=== PATIENT | female | born 1950 | race Caucasian/White ===

== ENCOUNTER → 2018-06-03 12:21 | Outpatient (CLI) | payer MEDICARE, SELFPAY ==
--- NOTE | 2018-06-03 | DI.MG.S_ITS ---
BILATERAL DIGITAL SCREENING MAMMOGRAM 3D/2D WITH CAD: 06/03/2018 CLINICAL: Routine screening. Comparison is made to exams dated: 04/26/2017 mammogram, 04/18/2016 mammogram, and 08/03/2014 mammogram - [facility]. The tissue of both breasts is heterogeneously dense. This may lower the sensitivity of mammography. Current study was also evaluated with a Computer Aided Detection (CAD) system. No significant masses, calcifications, or other findings are seen in either breast. There has been no significant interval change. IMPRESSION: NEGATIVE There is no mammographic evidence of malignancy. A 1 year screening mammogram is recommended.(06/04/2019) This exam was interpreted at Station ID: [id number]. NOTE: For mammograms, a report in lay terms will be sent to the patient. Approximately 15% of breast malignancies will not be visualized mammographically. In the management of a palpable breast mass, a negative mammogram must not discourage biopsy of a clinically suspicious lesion. Electronically Signed By: Carmelo sharif/tomas:06/04/2018 12:23:21 letter sent: Normal Exam ACR BI-RADS Category 1: Negative 3341F
== END ==
PROVIDERS: PCP Physician Assistant; Visit Provider Physician Assistant
DX: Z12.31 Encounter for screening mammogram for malignant neoplasm of breast (principal)
CPT/HCPCS: 77063; 77067

== ENCOUNTER → 2018-08-05 11:22 | Outpatient (CLI) | payer MEDICARE, SELFPAY ==
[2018-08-05 12:42] LABS: Alanine Aminotransferase 29 IU/L (9-52); Albumin 4.5 g/dL (3.5-5.0); Albumin Globulin Ratio 1.5 (1.0-2.8); Alkaline Phosphatase 98 U/L (38-126); Aspartate Aminotransferase 24 IU/L (14-36); Bilirubin Total 0.3 mg/dL (0.2-1.3); Blood Urea Nitrogen 14 mg/dL (7-17); Calcium 9.3 mg/dL (8.4-10.2); Carbon Dioxide 22 mmol/L (22-32); Chloride 106 mmol/L (98-107); Cholesterol 260 mg/dL (140-199); Estimated Glomerular Filt Rate > 60.0 mL/min (>60); Globulin 3.1 g/dL (1.7-4.1); Glucose 92 mg/dL (80-110); HDL Cholesterol 66 mg/dL (40-60); HEMOLYSIS < 15 (0-50); LDL Cholesterol Calculated 169 mg/dL (<100); Potassium 5.2 mmol/L (3.4-5.1); Sodium 142 mmol/L (137-145); Total Protein 7.6 g/dL (6.3-8.2); Triglycerides 127 mg/dL (35-150)
[2018-08-05 13:08] LABS: Erythrocyte Sedimentation Rate 28 MM/HR (0-20)
[2018-08-05 13:09] LABS: Thyroid Stimulating Hormone 2.41 uIU/mL (0.47-4.68)
== END ==
PROVIDERS: PCP Physician Assistant; Visit Provider Physician Assistant
DX: E03.9 Hypothyroidism, unspecified (principal); E78.2 Mixed hyperlipidemia; K58.9 Irritable bowel syndrome, unspecified; K76.0 Fatty (change of) liver, not elsewhere classified; R70.0 Elevated erythrocyte sedimentation rate
CPT/HCPCS: 80053; 80061; 84443; 85651

== ENCOUNTER → 2019-04-21 10:10 | Outpatient (CLI) | payer MEDICARE, SELFPAY ==
--- NOTE | 2019-04-21 10:19 | DI.CT.S_ITS ---
PROCEDURE: CT LE LT W CON INDICATIONS: Fall x 2; foot pain left lateral 5th metatarsal TECHNIQUE: Noncontrast 1-1.5 mm axial sections acquired from above the tibiotalar joint to the bottom of the calcaneus, with coronal and sagittal reformats. COMPARISON: None. FINDINGS: Image quality: Excellent. Bones: No fracture found. Mild degenerative osteoarthritis is present. No traumatic subluxation is seen. Soft tissues: No posttraumatic hematoma identified. No ligamentous injury seen. IMPRESSION: Pain is reported most prominent at the lateral fifth metatarsal region, and through this area at no osseous injury or soft tissue injury is found. There is a mild degree of degenerative osteoarthritis over the foot, without evidence of erosive arthritis. Dictated by: Nate Mart M.D. on 04/21/2019 at 12:35 Approved by: Nate Mart M.D. on 04/21/2019 at 12:36
== END ==
PROVIDERS: PCP Physician Assistant; Visit Provider Physician Assistant
DX: M79.672 Pain in left foot (principal); W19.XXXA Unspecified fall, initial encounter
CPT/HCPCS: 73700

== ENCOUNTER 2019-06-03 08:41 | Day surgery (SDC) | payer MEDICARE, SELFPAY ==
--- NOTE | 2019-06-03 | PATH_ITS ---
[facility] Accession Number: [id number] . 01 Material submitted: . PART A: gastrointestinal site - GASTRIC BIOPSIES PART B: colon - ASCENDING COLON POLYP PART C: colon - FLAT LESION AT 50 CM . 01 Clinical history: . SCREENING COLONOSCOPY . 02 Diagnosis: A. Stomach, Biopsies: Gastric antral and body mucosa with mild chronic inflammation. Negative for Helicobacter organisms by immunohistochemistry. Negative for intestinal metaplasia, dysplasia or malignancy. . B. Ascending Colon, Polyp: Tubular adenoma. . C. Colon at 50 cm, Flat Lesion: Serrated lesion, favor sessile serrated adenoma. MRV 06/05/2019 1404 Local . 02 Electronically signed: . Max Antoine MD, PhD, Pathologist NPI- [id number] . 01 Gross description: . Part A: GASTRIC BIOPSIES: Received in formalin are 4 fragment(s) of prieto, soft tissue measuring 0.1 x 0.1 x 0.1 cm to 0.3 x 0.2 x 0.2 cm which is entirely submitted and submitted entirely in 1 cassette(s) Part B: ASCENDING COLON POLYP: Received in formalin are 2 fragment(s) of prieto, soft tissue measuring 0.1 x 0.1 x 0.1 cm to 0.2 x 0.2 x 0.2 cm which is entirely submitted and submitted entirely in 1 cassette(s) Part C: FLAT LESION AT 50 CM: Received in formalin are 3 fragment(s) of prieto, soft tissue measuring 0.1 x 0.1 x 0.1 cm to 0.3 x 0.2 x 0.2 cm which is entirely submitted and submitted entirely in 1 cassette(s) /[facility] 06/03/2019 1929 Local . 02 Microscopic: . Part A: An immunohistochemical stain is performed to evaluate for Helicobacter organisms, and is negative. A control stain shows appropriate reactivity. . * This test was developed and its performance characteristics determined by [facility]. It has not been cleared or approved by the U.S. Food and Drug Administration. The FDA has determined that such clearance or approval is not necessary. This test is used for clinical purposes. It should not be regarded as investigational or for research. . 02 Pathologist provided ICD-10: K29.70, D12.2, D12.6 . 02 CPT . 100250, 477754, 152630, W33395 Performed at: 01 [facility] [address] [facility], [place], [place] [id number] MD Jose Rowland MD Phone: [phone] Performed at: 02 [facility] [address] [place] [id number] MD Suzanne Camilo MD Phone: [phone]
[2019-06-03 09:01] VITALS: BMI 31.6
[2019-06-03 09:12] VITALS: BP 147/78; PULSE 85; RESP 12; TEMP 36.6; O2SAT 96
[2019-06-03] MEDS: SODIUM CHLORIDE 0.9% 1,000 ML 200 ML IV (09:14)
--- NOTE | 2019-06-03 09:59 | PM.HP.1 ---
History of Present Illness History of Present Illness Date Patient Seen: 06/03/19 Time Patient Seen: 10:00 Chief complaint: 63900 SCREENING COLONOSCOPY Narrative: Patient is woman with chronic mid and left abdominal pain that is persistent for the last 4 years. She apparently has had an evaluation and may have had gastritis or ulcers in the past. She is here for screening colonoscopy and has requested an EGD as well. She had a sister with colon cancer. Her last colonoscopy was in 2012. She had a small polyp removed at that time. Patient History Surgical History Status post hysterectomy Family History (Updated 01/12/16 @ 00:00 by Conversion Provider) Father Heart disease Social History household members: spouse Smoking Status: Former smoker (quit 19 years ago) Tobacco: How many years used: 30 second hand exposure: Yes (rarely) alcohol intake: current (Usually vodka, 3 or 4 drinks a month) substance use type: marijuana (edibles/THC with CBD) Family & Social History Family History Father Heart disease Social History: household members spouse Tobacco & Substance use: Smoking Status Former smoker alcohol intake current Meds Home Medications and Allergies Home Medications Medication Instructions Recorded Confirmed Type estradiol 0.075 mg/24 hr 0.075 mg TOPICAL SEE INSTRUCTIONS 07/29/18 06/03/19 Rx semiweekly transdermal patch #24 patch cyclobenzaprine 10 mg tablet 10 mg PO BEDTIME PRN #30 tab 10/18/18 06/03/19 Rx alprazolam 1 mg tablet 1 mg PO HSP PRN #30 tab 03/04/19 06/03/19 Rx amitriptyline 10 mg tablet See Rx Instructions PO BEDTIME PRN 04/15/19 06/03/19 Rx #180 tab oxybutynin chloride 5 mg See Rx Instructions PO DAILY #30 04/15/19 06/03/19 Rx tablet,extended release 24 hr tab Allergies Allergy/AdvReac Type Severity Reaction Status Date / Time doxycycline [DOXYCYCLINE] AdvReac Severe Pressure Verified 06/03/19 08:59 behind eyes/blurred vision/headaches citalopram [CITALOPRAM] AdvReac Intermediate FORGETFULNESS Verified 06/03/19 08:59 AND BRAIN FOG Review of Systems Review of Systems ROS Unobtainable: All systems reviewed & are unremarkable except as noted in HPI and below Exam Vital Signs (past 8 hours): - 06/03/19 09:12 Temperature 97.9 F Pulse Rate 85 Respiratory Rate 12 Blood Pressure 147/78 H Pulse Oximetry 96 Oxygen Delivery Method Room Air Narrative Exam Narrative: Pleasant cooperative patient no apparent distress. Lungs are clear to auscultation. No rales or rhonchi. Heart regular rate and rhythm no murmur gallop. Abdomen is soft nontender without mass. No obvious hernias. Patient is alert and oriented x3. Assessment & Plan Assessment & Plan narrative: The patient for a screening colonoscopy and I have added an upper GI endoscopy due to her chronic symptoms and prior history. I have discussed the procedures with them. Risks of bleeding, perforation which would necessitate major operation, failure to find remove all lesions, the potential tattoo were all discussed. All questions were answered. They wished to proceed.
--- NOTE | 2019-06-03 10:02 | PM.PREOP ---
Pre-operative Note Interval Note History & Physical reviewed/Exam performed by Physician: Yes Changes to H&P: No ASA Class (for procedural sedation): II
[2019-06-03] MEDS: LIDOCAINE 4% SOLN 50 ML 20 ML TOP (10:07)
--- NOTE | 2019-06-03 10:51 | PM.OP.ENDO ---
Operative Date/Time/Diagnoses Date of procedure: 06/03/19 Time of procedure: 10:52 Pre-op diagnosis: Abdominal pain. Screening for colon cancer. Last colonoscopy 6 years ago. Personal history of polyps. Sister with colon cancer. Post-op diagnosis: same (Diverticulosis. One small polyp in 1 irregularity.) Procedure & Clinicians Study performed: EGD with cold biopsy. Colonoscopy with cold biopsy. Same procedure as scheduled: Yes Indications: Chronic abdominal pain. screening for colon cancer Surgeon: Narciso Albarran Procedure Notes SCOAP/Timeout: Perform Procedure in detail: The patient had topical anesthetic applied to oropharynx. She was placed in left lateral decubitus position and underwent IV sedation directed by the surgeon consisting of fentanyl and Versed. A bite block was inserted and the scope was advanced through it into the esophagus. The esophagus was unremarkable. GE junction was noted at 41 cm from the incisors. The stomach insufflated well. There were no lesions seen in the body, antrum or at the incisura. The pyloric channel was patent. The duodenum was unremarkable to the 4th part. The scope was brought back into the stomach and retroflexed. The proximal stomach normal in appearance. Because of the patient's history I took random biopsies of the stomach. The scope was straightened and brought out through the esophagus again. No lesions were seen. The scope was removed and the patient tolerated the procedure well. The patient was shunt was repositioned. The patient was given additional sedation directed by the surgeon consisting of fentanyl and Versed. Digital exam was remarkable for a mild stricture. The scope was inserted and advanced through the rectum into the sigmoid, descending, transverse, and ascending colon. Diverticulosis was noted. This was principally in the sigmoid.. The cecum was reached identified by the ileocecal valve and the appendiceal opening. The scope was gradually brought out. One small Polyp was found at the ascending colon. It was removed with biopsy forceps. There was also a slight irregularity that might have been due to trauma going around a turn at 50 cm. I biopsied the area.. The scope ultimately was attempted to be retroflexed in the rectum. I was unsuccessful. Therefore the scope was slowly brought through the anal canal. Patient appeared to have some hemorrhoids near the anal verge.. The scope was removed and the patient tolerated the procedure well. Prep was very good Scope withdrawal time: 9 minutes(12 total) Sedation minutes: 41 Findings: diverticulosis (Sigmoid) and polyp (Small polyp) Specimen(s): other (Polyps) Complications: none Post-procedure Recommendations: Other recommendation (Consider taking Metamucil daily) Follow up: as needed Disposition: PACU
[2019-06-03] MEDS: MIDAZOLAM 5 MG/5 ML VIAL IV (10:53)
[2019-06-03] MEDS: fentaNYL 250 MCG/5 ML INJ IV (10:53)
[2019-06-03 10:54] VITALS: BP 147/75; PULSE 84; RESP 17; TEMP 36.2; O2SAT 98
[2019-06-03 10:59] VITALS: BP 150/73; PULSE 85; RESP 17; O2SAT 97
--- NOTE | 2019-06-03 11:00 | SUR.PHASEI ---
Pt. arousible with verbal stimulation, laying on left side, dozing; noted heart rate increasing to 130 and flucuating between one teens and and one twenty's, to 130. Pt. states that she (the pt.) feels her heart racing for no reason, sometimes keeping her (the pt) from sleeping at night. Pt. states aunt and sister has been dx'd with atrial fibrilation. Just had pt. sit up in bed to take a drink and noted heart rate dropped back down to the 80's, however not staying that way; as this author is documenting noted the heartrate to increase to the upper one teens. pt. stated that it primarlily races when laying flat. This author is recommending the pt. follow up her (the pt) PCP then onto a chemical applicator. Pt. has seen a chemical applicator for a low saturation level after a surgical procedure. This author has strongly recommended that the pt. see her chemical applicator OFELIA.
[2019-06-03 11:05] VITALS: BP 159/76; PULSE 115; RESP 17; O2SAT 98
[2019-06-03 11:20] VITALS: BP 143/77; PULSE 105; RESP 17; O2SAT 98
[2019-06-03 11:30] VITALS: BP 154/74; PULSE 94; RESP 17; TEMP 36.2; O2SAT 98
--- NOTE | 2019-06-03 11:38 | SUR.PHASEII ---
This author went over d/c instructions with spouse and informed the spouse of recent heart rate; pt. spouse stated that he was aware of her (the pt) experiencing increased heart rate/palpitations prior to today. This author strongly encouraged the spouse to call and make an appoint to see box spinner hopefully by end of this week. Both pt. and spouse acknowledged full understanding and importance of following up with cardio dr. Pt. heart rate at d/c time in the 90's
== END 2019-06-03 11:41 | disposition home or self-care (01) ==
PROVIDERS: Family Provider Physician Assistant; PCP Physician Assistant; Visit Provider Specialist
PROC: 0DJD8ZZ Inspection of Lower Intestinal Tract, Via Natural or Artificial Opening Endoscopic (ICD-10-PCS; CPT 45378; principal; 2019-06-03 09:45)
PROC: 0DJ08ZZ Inspection of Upper Intestinal Tract, Via Natural or Artificial Opening Endoscopic (ICD-10-PCS; CPT 43235; 2019-06-03 09:45)
DX: Z86.010 Personal history of colon polyps (principal); Z80.0 Family history of malignant neoplasm of digestive organs; Z87.19 Personal history of other diseases of the digestive system; K57.30 Diverticulosis of large intestine without perforation or abscess without bleeding
CPT/HCPCS: 45380; 43239; 99152; 99153; J2250; J3010

== ENCOUNTER → 2019-06-06 09:27 | Outpatient (CLI) | payer MEDICARE, SELFPAY ==
[2019-06-06 10:56] LABS: Hematocrit 41.2 % (36-46); Hemoglobin 14.1 g/dL (12.0-16.0); Mean Corpuscular HGB Conc 34.3 % (30-36); Mean Corpuscular Hemoglobin 31.1 PG (26-34); Mean Corpuscular Volume 90.7 fL (80-100); Platelet Count 228 X10^3/uL (150-400); Red Blood Cell Count 4.54 X10^6/uL (4.0-5.2); White Blood Cell Count 7.5 X10^3/uL (4.5-11.0)
[2019-06-06 11:51] LABS: Alanine Aminotransferase 17 IU/L (9-52); Albumin 4.3 g/dL (3.5-5.0); Albumin Globulin Ratio 1.3 (1.0-2.8); Alkaline Phosphatase 85 U/L (38-126); Aspartate Aminotransferase 24 IU/L (14-36); BUN Creatinine Ratio 18.6 (6-22); Bilirubin Total 0.4 mg/dL (0.2-1.3); Blood Urea Nitrogen 13 mg/dL (7-17); Calcium 9.3 mg/dL (8.4-10.2); Carbon Dioxide 26 mmol/L (22-32); Chloride 104 mmol/L (98-107); Estimated Glomerular Filt Rate > 60.0 mL/min (>60); Globulin 3.4 g/dL (1.7-4.1); Glucose 94 mg/dL (80-110); HEMOLYSIS < 15 (0-50); Potassium 4.6 mmol/L (3.4-5.1); Sodium 138 mmol/L (137-145); Total Protein 7.7 g/dL (6.3-8.2)
[2019-06-06 12:41] LABS: TSH w/ Reflex to FT4 1.79 uIU/mL (0.47-4.68)
== END ==
PROVIDERS: PCP Physician Assistant; Visit Provider Nurse Practitioner Family
DX: I49.9 Cardiac arrhythmia, unspecified (principal); R00.2 Palpitations
CPT/HCPCS: 36415; 80053; 84443; 85027

== ENCOUNTER → 2019-06-07 10:47 | Outpatient (CLI) | payer MEDICARE, SELFPAY ==
--- NOTE | 2019-06-07 | DI.MG.S_ITS ---
BILATERAL DIGITAL SCREENING MAMMOGRAM 3D/2D WITH CAD: 06/07/2019 CLINICAL: Routine screening. Comparison is made to exams dated: 06/03/2018 mammogram, 04/26/2017 mammogram, and 04/18/2016 mammogram - [facility]. The tissue of both breasts is heterogeneously dense. This may lower the sensitivity of mammography. Current study was also evaluated with a Computer Aided Detection (CAD) system. No significant masses, calcifications, or other findings are seen in either breast. There has been no significant interval change. IMPRESSION: NEGATIVE There is no mammographic evidence of malignancy. A 1 year screening mammogram is recommended. This exam was interpreted at Station ID: [id number]. NOTE: For mammograms, a report in lay terms will be sent to the patient. Approximately 15% of breast malignancies will not be visualized mammographically. In the management of a palpable breast mass, a negative mammogram must not discourage biopsy of a clinically suspicious lesion. Electronically Signed By: Jose hollis/tomas:06/10/2019 16:27:09 letter sent: Normal Exam ACR BI-RADS Category 1: Negative 3341F
== END ==
PROVIDERS: PCP Physician Assistant; Visit Provider Physician Assistant
DX: Z12.31 Encounter for screening mammogram for malignant neoplasm of breast (principal)
CPT/HCPCS: 77063; 77067

== ENCOUNTER → 2019-06-19 10:47 | Outpatient (CLI) | payer MEDICARE, SELFPAY ==
--- NOTE | 2019-07-08 15:37 | PM.CARDMON.1 ---
Gis Coordinator Report Referral & Results Date Patient Seen: 06/19/19 Requesting provider: Radha Trejo Indication: Palpitations Duration of monitoring (days): 14 Diary information: There were 19 patient triggered events and 9 patient diary entries All of these events were associated with sinus rhythm, PACs, and SVT/atrial tachycardia Data: Minimum sinus heart rate was 53 beats per minute at 08:00 on 06/28/2019 Maximum sinus heart rate was 151 beats per minute at 13:30 on 06/30/2019 Maximum overall heart rate was 200 beats per minute at 17:37 on 06/20/2019 during a 4 beat run of SVT Approximately 4.8% of identified beats were ectopic supraventricular in origin Less than 1% of identified beats were ventricular ectopic in origin Patient had 9400+ episodes of a supraventricular tachycardia or atrial tachycardia with the fastest being the 4 beat run as above, the longest lasting 50.5 seconds at a rate of 120 beats per minute, which suggest atrial tachycardia rather than true SVT Impression: Patient with significant burden of supraventricular ectopic activity as above, potentially source of patient's symptoms of palpitations Clinical correlation suggested
== END ==
PROVIDERS: PCP Physician Assistant; Visit Provider Nurse Practitioner Family
DX: R00.2 Palpitations (principal); I49.9 Cardiac arrhythmia, unspecified
CPT/HCPCS: 0296T; 0298T

== ENCOUNTER → 2020-02-27 10:37 | Outpatient (CLI) | payer MEDICARE, SELFPAY ==
[2020-02-27 12:25] LABS: Alanine Aminotransferase 17 IU/L (<35); Albumin Globulin Ratio 1.3 (1.0-2.8); Alkaline Phosphatase 85 U/L (38-126); Aspartate Aminotransferase 21 IU/L (14-36); BUN Creatinine Ratio 22.5 (6-22); Bilirubin Total 0.5 mg/dL (0.2-1.3); Blood Urea Nitrogen 16 mg/dL (7-17); Calcium 9.1 mg/dL (8.4-10.2); Carbon Dioxide 25 mmol/L (22-32); Chloride 103 mmol/L (98-107); Cholesterol 245 mg/dL (140-199); Estimated Glomerular Filt Rate > 60.0 mL/min (>60); Glucose 88 mg/dL (80-110); HDL Cholesterol 46 mg/dL (40-60); HEMOLYSIS < 15 (0-50); LDL Cholesterol Calculated 153 mg/dL (<100); Potassium 4.4 mmol/L (3.4-5.1); Sodium 136 mmol/L (137-145); Triglycerides 229 mg/dL (35-150)
[2020-02-27 12:38] LABS: Free T3, Triiodothyronine Free 2.77 pg/mL (2.77-5.27); Free T4, Direct Thyroxine 1.09 ng/dL (0.78-2.19)
[2020-02-27 12:52] LABS: Thyroid Stimulating Hormone 1.98 uIU/mL (0.47-4.68)
[2020-02-27 13:14] LABS: Hep C Virus Ab w/Reflex Quant NEGATIVE s/c (NEGATIVE)
== END ==
PROVIDERS: PCP Nurse Practitioner; Referring Provider Nurse Practitioner; Visit Provider Nurse Practitioner
DX: Z11.59 Encounter for screening for other viral diseases (principal); Z91.89 Other specified personal risk factors, not elsewhere classified; E78.2 Mixed hyperlipidemia; F41.8 Other specified anxiety disorders; I49.9 Cardiac arrhythmia, unspecified; R00.2 Palpitations
CPT/HCPCS: 36415; 80053; 80061; 84439; 84443; 84481; 86803

== ENCOUNTER → 2020-07-07 14:39 | Outpatient (CLI) | payer MEDICARE, SELFPAY ==
[2020-07-07 16:06] LABS: BUN Creatinine Ratio 25.6 (6-22); Blood Urea Nitrogen 21 mg/dL (7-17); Calcium 9.5 mg/dL (8.4-10.2); Carbon Dioxide 28 mmol/L (22-32); Chloride 104 mmol/L (98-107); Estimated Glomerular Filt Rate > 60.0 mL/min (>60); Glucose 94 mg/dL (80-110); HEMOLYSIS < 15 (0-50); Potassium 4.7 mmol/L (3.4-5.1); Sodium 136 mmol/L (137-145)
== END ==
PROVIDERS: PCP Nurse Practitioner; Referring Provider Nurse Practitioner Acute Care; Visit Provider Nurse Practitioner
DX: I50.32 Chronic diastolic (congestive) heart failure (principal); M81.0 Age-related osteoporosis without current pathological fracture
CPT/HCPCS: 36415; 77080; 80048

== ENCOUNTER → 2020-08-10 16:03 | Outpatient (CLI) | payer MEDICARE, SELFPAY ==
--- NOTE | 2020-08-10 16:05 | DI.MG.S_ITS ---
BILATERAL DIGITAL SCREENING MAMMOGRAM 3D/2D WITH CAD: 08/10/2020 CLINICAL: Routine screening. Comparison is made to exams dated: 06/07/2019 mammogram, 06/03/2018 mammogram, and 04/26/2017 mammogram - [facility]. The tissue of both breasts is heterogeneously dense. This may lower the sensitivity of mammography. Current study was also evaluated with a Computer Aided Detection (CAD) system. No significant masses, calcifications, or other findings are seen in either breast. There has been no significant interval change. IMPRESSION: NEGATIVE There is no mammographic evidence of malignancy. A 1 year screening mammogram is recommended. This exam was interpreted at Station ID: [id number]. NOTE: For mammograms, a report in lay terms will be sent to the patient. Approximately 15% of breast malignancies will not be visualized mammographically. In the management of a palpable breast mass, a negative mammogram must not discourage biopsy of a clinically suspicious lesion. Electronically Signed By: Jose hollis/tomas:08/10/2020 16:28:31 letter sent: Normal Exam ACR BI-RADS Category 1: Negative 3341F
== END ==
PROVIDERS: PCP Nurse Practitioner; Referring Provider Nurse Practitioner; Visit Provider Nurse Practitioner
DX: Z12.31 Encounter for screening mammogram for malignant neoplasm of breast (principal)
CPT/HCPCS: 77063; 77067

== ENCOUNTER 2020-09-06 11:15 | Outpatient (RCR) | payer MEDICARE, SELFPAY ==
--- NOTE | 2020-08-11 16:00 | PT.OPPOC ---
Physical, Occupational & Speech Therapy At [facility] Current Diagnoses Stress incontinence (female) (male) (08/11/20) Urge incontinence (08/11/20) Cystocele, unspecified (08/11/20) Postmenopausal atrophic vaginitis (08/11/20) Visit Care Team Role Provider Type TAYLOR Lindo Primary Care Provider Advanced [employer] Zone Leader Specialty: Family Practice Address: [address] [place] [address], [id number] Email: [email or web address] Raisa Arcos MD Attending Provider Physician Referring Provider Specialty: IS MANAGER Address: [address] [place] [address], [address] Email: Plan Of Care PT-OP-T Assessment and Plan Start: 08/11/20 08:05 Freq: Status: Active Protocol: Document 08/11/20 14:15 AMB (Rec: 08/13/20 08:11 AMB [email or web address]) Physical Therapy Assessment Rehab Potential Rehabilitation Potential Good Evaluation Complexity Number of Personal Factors/Comorbidities 1-2 Clinical Presentation at Evaluation Evolving Impairments Impairments Functional Activities,Soft Tissue Mobility,Strength Goals Two Impairment prolapse Short Term Goal (STG) Nayeli will be independent an consistent with her HEP for her pelvic floor strengthening . STG Duration 4 weeks Prison Goal (LTG) Nayeli will go for a walk with her pessary without a feeling of pelvic heaviness. LTG Duration 8 weeks One Impairment continence Short Term Goal (STG) Nayeli will reduce her daily leaks to 1x/day. STG Duration 4 weeks Prison Goal (LTG) Nayeli will lift a 10# box from the floor to waist height without leaking. LTG Duration 8 weeks Assessment Summary Assessment Nayeli attends physical therapy with a long history of urgency, now worsened by more recent prolapse and stress incontinence symptoms. She was able to engage her pelvic floor muscles, but did display weakness, so would be a good candidate for pelvic floor strengthening. She will also benefit from education regarding her urgency and frequency. Physical Therapy Plan Frequency and Duration Frequency of Treatment 1x/Week Duration of Treatment 8 weeks Plan of Care Start Date 08/11/20 Plan of Care End Date 10/13/20 Therapeutic Interventions Therapeutic Interventions Manual Therapy,Neuromuscular Re-education,Self-Care/Home Management,Therapeutic Activities,Therapeutic Exercises Modalities Biofeedback,Cold Pack/Ice Massage,Electric Stimulation, Hot Packs Next Visit Focus/Plan Next Note Type Treatment Note Next Visit Plan Establishe HEP starting in supine, can try legs elevated Plan of Care Dates Plan of Care Start Date 08/11/20 Plan of Care End Date 10/13/20 Electronically Signed by: Lisa Wood, PT 08/13/20 [id number] Please Sign and Return: I have reviewed this Plan of Care and certify that the skilled therapy services above are required to meet the patient?s needs. Physician Signature Date Printed Name and Credentials Clinical Instructor Signature Printed Name and Credentials
--- NOTE | 2020-08-11 16:00 | PT.OIE ---
Current Diagnoses Stress incontinence (female) (male) (08/11/20) Urge incontinence (08/11/20) Cystocele, unspecified (08/11/20) Postmenopausal atrophic vaginitis (08/11/20) Past Medical History (Last Updated 07/29/20 @ 13:43 by TAYLOR Lindo) Atrial tachycardia Cystocele Degeneration of intervertebral disc (03/20/11) Fall History of bariatric surgery (03/20/11) Insomnia Insufficiency, adrenal Intermittent palpitations Irregular heart rhythm Left foot pain Low back pain Mitral and aortic incompetence (03/20/11) Mixed incontinence Obesity (BMI 30.0-34.9) Obstructive sleep apnea Paroxysmal supraventricular tachycardia Primary osteoarthritis (03/20/11) Rectocele Right hip pain Sciatica, right side Steatosis of liver Vaginal atrophy Past Surgical History (Last Reviewed 07/29/20 @ 13:24 by TAYLOR Lindo) Status post hysterectomy Visit Care Team Role Provider Type TAYLOR Lindo Primary Care Provider Advanced Front Desk Administrator Specialty: Family Practice Address: [address] [place] [address], [id number] Email: [email or web address] Raisa Arcos MD Attending Provider Physician Referring Provider Specialty: BADGER DISTILLER OPERATOR Address: [address] [place] [address], [id number] Email: Physical Therapy Initial Evaluation PT-OP-A Visit Information Start: 08/11/20 08:05 Freq: Status: Active Protocol: Document 08/11/20 14:15 AMB (Rec: 08/13/20 08:11 AMB [id number]) Out-Patient Physical Therapy Visit Information Visit Information Visit Type Initial Evaluation Visit Start Time 14:15 Visit Stop Time 15:00 Total Visit Minutes 45 Visit Number 1 PT-OP-B Current Condition Start: 08/11/20 08:05 Freq: Status: Active Protocol: Document 08/11/20 14:17 AMB (Rec: 08/11/20 14:41 AMB [id number]) Current Condition History of Current Condition Onset Date sometime May 2020 Current Complaints heaviness, urinary leakage History of Current Condition Prolapse concerns. Urgency since 30s. Vaginal delivery with episiotomy of 9.5 pound baby and then twins. Hysterectomy 1991 for endometriosis, ovaries, cervix . Hormone patch currently. Was fit for a pessary, it's being ordered, hasn't started wearing it yet. Prior Functional Status Baseline Function- ADL's Modified Independent Baseline Function- Mobility Modified Independent Current Functional Impairments (Reported) Functional Limitations- ADL's Long standing urge incontinence and urinary frequency, more recent stress incontinence and cystocele/ rectocele sx Personal Factors Other Personal Factors That May Effect currently getting work up for Therapy/Recovery cardiac issues: CHF, SOB. PT-OP-C Subjective Start: 08/11/20 08:05 Freq: Status: Active Protocol: Document 08/11/20 14:15 AMB (Rec: 08/13/20 08:11 AMB [id number]) Patient Questionnaires Pelvic Pain and Urgency/Frequency Patient Symptom Scale Pelvic Pain Score 7 PT-OP-I Pelvic Floor Start: 08/11/20 08:05 Freq: Status: Active Protocol: Document 08/11/20 14:15 AMB (Rec: 08/11/20 16:23 AMB [id number]) Pelvic Floor Assessment Urine Pelvic Floor Surgery hysterectomy Urinary Symptoms Urge Sensation,Prolapse, Falling Out Feeling/Heavy Leakage Size Large Leakage Cause Cough,Exercise,Lifting,Sneeze, Urge Leaks Per Day 4 Voiding Frequency 20 min-2 hr Nocturia 2 Bowel Bowel Symptoms Constipation Prolapse Cystocele Grade 3 Rectocele Grade 3 Perineal Descent Resting Present Bearing Present Contraction Ability Voluntary Contraction Weak Voluntary Relaxation Weak Manual Muscle Testing Left 2 Manual Muscle Testing Right 2 Manual Muscle Testing Anterior 2 Manual Muscle Testing Posterior 2 Muscle Endurance (Seconds) 3 Number of Quick Contractions In 10 4 Seconds Comments Pelvic Floor Comments Tends to compensate with abs PT-OP-T Assessment and Plan Start: 08/11/20 08:05 Freq: Status: Active Protocol: Document 08/11/20 14:15 AMB (Rec: 08/13/20 08:11 AMB [id number]) Physical Therapy Assessment Rehab Potential Rehabilitation Potential Good Evaluation Complexity Number of Personal Factors/Comorbidities 1-2 Clinical Presentation at Evaluation Evolving Impairments Impairments Functional Activities,Soft Tissue Mobility,Strength Goals Two Impairment prolapse Short Term Goal (STG) Nayeli will be independent an consistent with her HEP for her pelvic floor strengthening . STG Duration 4 weeks Antique Clock Repairer Goal (LTG) Nayeli will go for a walk with her pessary without a feeling of pelvic heaviness. LTG Duration 8 weeks One Impairment continence Short Term Goal (STG) Nayeli will reduce her daily leaks to 1x/day. STG Duration 4 weeks Shelter Goal (LTG) Nayeli will lift a 10# box from the floor to waist height without leaking. LTG Duration 8 weeks Assessment Summary Assessment Nayeli attends physical therapy with a long history of urgency, now worsened by more recent prolapse and stress incontinence symptoms. She was able to engage her pelvic floor muscles, but did display weakness, so would be a good candidate for pelvic floor strengthening. She will also benefit from education regarding her urgency and frequency. Physical Therapy Plan Frequency and Duration Frequency of Treatment 1x/Week Duration of Treatment 8 weeks Plan of Care Start Date 08/11/20 Plan of Care End Date 10/13/20 Therapeutic Interventions Therapeutic Interventions Manual Therapy,Neuromuscular Re-education,Self-Care/Home Management,Therapeutic Activities,Therapeutic Exercises Modalities Biofeedback,Cold Pack/Ice Massage,Electric Stimulation, Hot Packs Next Visit Focus/Plan Next Note Type Treatment Note Next Visit Plan Establishe HEP starting in supine, can try legs elevated
--- NOTE | 2020-08-16 13:04 | PT.OTN ---
Current Diagnoses Stress incontinence (female) (male) (08/16/20) Urge incontinence (08/16/20) Cystocele, unspecified (08/16/20) Postmenopausal atrophic vaginitis (08/16/20) Physical Therapy Treatment Note PT-OP-A Visit Information Start: 08/11/20 08:05 Freq: Status: Active Protocol: Document 08/16/20 09:00 AMB (Rec: 08/16/20 09:30 AMB [id number]) Out-Patient Physical Therapy Visit Information Visit Information Visit Type Treatment Note Visit Start Time 09:00 Visit Stop Time 09:45 Total Visit Minutes 45 Visit Number 2 PT-OP-B Current Condition Start: 08/11/20 08:05 Freq: Status: Active Protocol: Document 08/11/20 14:17 AMB (Rec: 08/11/20 14:41 AMB [id number]) Current Condition History of Current Condition Onset Date sometime May 2020 Current Complaints heaviness, urinary leakage History of Current Condition Prolapse concerns. Urgency since 30s. Vaginal delivery with episiotomy of 9.5 pound baby and then twins. Hysterectomy 1991 for endometriosis, ovaries, cervix . Hormone patch currently. Was fit for a pessary, it's being ordered, hasn't started wearing it yet. Prior Functional Status Baseline Function- ADL's Modified Independent Baseline Function- Mobility Modified Independent Current Functional Impairments (Reported) Functional Limitations- ADL's Long standing urge incontinence and urinary frequency, more recent stress incontinence and cystocele/ rectocele sx Personal Factors Other Personal Factors That May Effect currently getting work up for Therapy/Recovery cardiac issues: CHF, SOB. PT-OP-C Subjective Start: 08/11/20 08:05 Freq: Status: Active Protocol: Document 08/16/20 09:00 AMB (Rec: 08/16/20 09:30 AMB [id number]) OP-PT Subjective Patient Comments Patient Comments Nayeli reports she has been doing her exercises in sidelying and that is going ok , has not gotten her pessary yet. PT-OP-I Pelvic Floor Start: 08/11/20 08:05 Freq: Status: Active Protocol: Document 08/11/20 14:15 AMB (Rec: 08/11/20 16:23 AMB [id number]) Pelvic Floor Assessment Urine Pelvic Floor Surgery hysterectomy Urinary Symptoms Urge Sensation,Prolapse, Falling Out Feeling/Heavy Leakage Size Large Leakage Cause Cough,Exercise,Lifting,Sneeze, Urge Leaks Per Day 4 Voiding Frequency 20 min-2 hr Nocturia 2 Bowel Bowel Symptoms Constipation Prolapse Cystocele Grade 3 Rectocele Grade 3 Perineal Descent Resting Present Bearing Present Contraction Ability Voluntary Contraction Weak Voluntary Relaxation Weak Manual Muscle Testing Left 2 Manual Muscle Testing Right 2 Manual Muscle Testing Anterior 2 Manual Muscle Testing Posterior 2 Muscle Endurance (Seconds) 3 Number of Quick Contractions In 10 4 Seconds Comments Pelvic Floor Comments Tends to compensate with abs PT-OP-Q Treatments Start: 08/11/20 08:05 Freq: Status: Active Protocol: Document 08/16/20 09:00 AMB (Rec: 08/16/20 13:03 AMB [id number]) Therapeutic Exercises Supine Exercises 1 Supine Exercise Name legs elevated quick flicks and long holds Comments on bolsters, instructed in breath for sx relief Sitting Exercises 1 Sitting Exercise Name roll in roll out Comments #3 t band and ball, vc breathing PT-OP-T Assessment and Plan Start: 08/11/20 08:05 Freq: Status: Active Protocol: Document 08/16/20 09:00 AMB (Rec: 08/16/20 09:30 AMB [id number]) Physical Therapy Assessment Assessment Summary Assessment Nayeli tolerated exercises well , although it takes concentration to engage pelvic floor, breath and not compensate with abdominals, Did not do biofeedback today as her stomach was upset and she declined it. Physical Therapy Plan Next Visit Focus/Plan Next Note Type Treatment Note Next Visit Plan Establishe HEP starting in supine, can try legs elevated
--- NOTE | 2020-08-30 11:52 | PT.OTN ---
Current Diagnoses Stress incontinence (female) (male) (08/30/20) Urge incontinence (08/30/20) Cystocele, unspecified (08/30/20) Postmenopausal atrophic vaginitis (08/30/20) Physical Therapy Treatment Note PT-OP-A Visit Information Start: 08/11/20 08:05 Freq: Status: Active Protocol: Document 08/30/20 10:59 AMB (Rec: 08/30/20 11:52 AMB [id number]) Out-Patient Physical Therapy Visit Information Visit Information Visit Type Treatment Note Visit Start Time 11:00 Visit Stop Time 11:45 Total Visit Minutes 45 Visit Number 3 PT-OP-B Current Condition Start: 08/11/20 08:05 Freq: Status: Active Protocol: Document 08/11/20 14:17 AMB (Rec: 08/11/20 14:41 AMB [id number]) Current Condition History of Current Condition Onset Date sometime May 2020 Current Complaints heaviness, urinary leakage History of Current Condition Prolapse concerns. Urgency since 30s. Vaginal delivery with episiotomy of 9.5 pound baby and then twins. Hysterectomy 1991 for endometriosis, ovaries, cervix . Hormone patch currently. Was fit for a pessary, it's being ordered, hasn't started wearing it yet. Prior Functional Status Baseline Function- ADL's Modified Independent Baseline Function- Mobility Modified Independent Current Functional Impairments (Reported) Functional Limitations- ADL's Long standing urge incontinence and urinary frequency, more recent stress incontinence and cystocele/ rectocele sx Personal Factors Other Personal Factors That May Effect currently getting work up for Therapy/Recovery cardiac issues: CHF, SOB. PT-OP-C Subjective Start: 08/11/20 08:05 Freq: Status: Active Protocol: Document 08/30/20 10:59 AMB (Rec: 08/30/20 11:52 AMB [id number]) OP-PT Subjective Patient Comments Patient Comments Nayeli is getting the pessary tomorrow. Exercises are going ok, continues to have urgency . PT-OP-I Pelvic Floor Start: 08/11/20 08:05 Freq: Status: Active Protocol: Document 08/11/20 14:15 AMB (Rec: 08/11/20 16:23 AMB [id number]) Pelvic Floor Assessment Urine Pelvic Floor Surgery hysterectomy Urinary Symptoms Urge Sensation,Prolapse, Falling Out Feeling/Heavy Leakage Size Large Leakage Cause Cough,Exercise,Lifting,Sneeze, Urge Leaks Per Day 4 Voiding Frequency 20 min-2 hr Nocturia 2 Bowel Bowel Symptoms Constipation Prolapse Cystocele Grade 3 Rectocele Grade 3 Perineal Descent Resting Present Bearing Present Contraction Ability Voluntary Contraction Weak Voluntary Relaxation Weak Manual Muscle Testing Left 2 Manual Muscle Testing Right 2 Manual Muscle Testing Anterior 2 Manual Muscle Testing Posterior 2 Muscle Endurance (Seconds) 3 Number of Quick Contractions In 10 4 Seconds Comments Pelvic Floor Comments Tends to compensate with abs PT-OP-Q Treatments Start: 08/11/20 08:05 Freq: Status: Active Protocol: Document 08/30/20 10:59 AMB (Rec: 08/30/20 11:52 AMB [id number]) Therapeutic Exercises Supine Exercises 1 Supine Exercise Name legs elevated quick flicks and long holds Comments on bolsters, instructed in breath for sx relief Sidelying Exercises 1 Sidelying Exercise Name L QL stretch Manual Therapy Treatment Other Other Manual Treatments MET for right anterior innominate rotation- given as HEP PT-OP-T Assessment and Plan Start: 08/11/20 08:05 Freq: Status: Active Protocol: Document 08/30/20 10:59 AMB (Rec: 08/30/20 11:52 AMB [id number]) Physical Therapy Assessment Assessment Summary Assessment Continued to educate in urge reduction techniques. 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 Physical Therapy Plan Next Visit Focus/Plan Next Note Type Treatment Note Next Visit Plan pt considering d/c next visit if pessary is working well
--- NOTE | 2020-09-06 15:45 | PT.OTN ---
Current Diagnoses Stress incontinence (female) (male) (09/06/20) Urge incontinence (09/06/20) Cystocele, unspecified (09/06/20) Postmenopausal atrophic vaginitis (09/06/20) Physical Therapy Treatment Note PT-OP-A Visit Information Start: 08/11/20 08:05 Freq: Status: Active Protocol: Document 09/06/20 11:22 AMB (Rec: 09/08/20 15:44 AMB [id number]) Out-Patient Physical Therapy Visit Information Visit Information Visit Type Discharge Summary Visit Start Time 11:15 Visit Stop Time 12:00 Total Visit Minutes 45 Visit Number 4 PT-OP-B Current Condition Start: 08/11/20 08:05 Freq: Status: Active Protocol: Document 08/11/20 14:17 AMB (Rec: 08/11/20 14:41 AMB [id number]) Current Condition History of Current Condition Onset Date sometime May 2020 Current Complaints heaviness, urinary leakage History of Current Condition Prolapse concerns. Urgency since 30s. Vaginal delivery with episiotomy of 9.5 pound baby and then twins. Hysterectomy 1991 for endometriosis, ovaries, cervix . Hormone patch currently. Was fit for a pessary, it's being ordered, hasn't started wearing it yet. Prior Functional Status Baseline Function- ADL's Modified Independent Baseline Function- Mobility Modified Independent Current Functional Impairments (Reported) Functional Limitations- ADL's Long standing urge incontinence and urinary frequency, more recent stress incontinence and cystocele/ rectocele sx Personal Factors Other Personal Factors That May Effect currently getting work up for Therapy/Recovery cardiac issues: CHF, SOB. PT-OP-C Subjective Start: 08/11/20 08:05 Freq: Status: Active Protocol: Document 09/06/20 11:22 AMB (Rec: 09/08/20 15:44 AMB [id number]) OP-PT Subjective Patient Comments Patient Comments Nayeli is feeling the pessary is helpful, tried to do the pelvic alignment exercises but it increases her back pain. PT-OP-I Pelvic Floor Start: 08/11/20 08:05 Freq: Status: Active Protocol: Document 08/11/20 14:15 AMB (Rec: 08/11/20 16:23 AMB [id number]) Pelvic Floor Assessment Urine Pelvic Floor Surgery hysterectomy Urinary Symptoms Urge Sensation,Prolapse, Falling Out Feeling/Heavy Leakage Size Large Leakage Cause Cough,Exercise,Lifting,Sneeze, Urge Leaks Per Day 4 Voiding Frequency 20 min-2 hr Nocturia 2 Bowel Bowel Symptoms Constipation Prolapse Cystocele Grade 3 Rectocele Grade 3 Perineal Descent Resting Present Bearing Present Contraction Ability Voluntary Contraction Weak Voluntary Relaxation Weak Manual Muscle Testing Left 2 Manual Muscle Testing Right 2 Manual Muscle Testing Anterior 2 Manual Muscle Testing Posterior 2 Muscle Endurance (Seconds) 3 Number of Quick Contractions In 10 4 Seconds Comments Pelvic Floor Comments Tends to compensate with abs PT-OP-Q Treatments Start: 08/11/20 08:05 Freq: Status: Active Protocol: Document 09/06/20 11:22 AMB (Rec: 09/08/20 15:44 AMB [id number]) Therapeutic Exercises Supine Exercises 1 Supine Exercise Name legs elevated quick flicks and long holds Comments on bolsters, instructed in breath for sx relief Sitting Exercises 2 Sitting Exercise Name MET for pelvic alignment in seated 1 Sitting Exercise Name roll in roll out Comments #3 t band and ball, vc breathing PT-OP-T Assessment and Plan Start: 08/11/20 08:05 Freq: Status: Active Protocol: Document 09/06/20 11:22 AMB (Rec: 09/06/20 12:46 AMB [id number]) Physical Therapy Assessment Goals Two Impairment prolapse Short Term Goal (STG) Nayeli will be independent an consistent with her HEP for her pelvic floor strengthening . STG Duration MET Physician Specialist Goal (LTG) Nayeli will go for a walk with her pessary without a feeling of pelvic heaviness. LTG Duration MET One Impairment continence Short Term Goal (STG) Nayeli will reduce her daily leaks to 1x/day. STG Duration NOT MET Long-Term Goal (LTG) Nayeli will lift a 10# box from the floor to waist height without leaking. LTG Duration NOT MET Assessment Summary Assessment Nayeli is wanting to be done with PT. She continues to have urgency, but is feeling like her pessary is helpful, and is really hoping for surgery when she is cleared by cardiology so feels she is ready to discharge at this time. Her urgency continues. Physical Therapy Plan Discharge Physical Therapy Discharge Reasons Patient Request
--- NOTE | 2020-09-08 15:45 | PT.OPDS ---
Current Diagnoses Stress incontinence (female) (male) (09/06/20) Urge incontinence (09/06/20) Cystocele, unspecified (09/06/20) Postmenopausal atrophic vaginitis (09/06/20) Visit Care Team Role Provider Type TAYLOR Lindo Primary Care Provider Advanced Pyrotechnics Press Tender Specialty: Family Practice Address: [address] [place] [address], [id number] Email: [email or web address] Raisa Arcos MD Attending Provider Physician Referring Provider Specialty: ASPHALT WORKER Address: [address] [place] [address], [address] Email: Visit Number Visit Number 4 Discharge Summary PT-OP-B Current Condition Start: 08/11/20 08:05 Freq: Status: Active Protocol: Document 08/11/20 14:17 AMB (Rec: 08/11/20 14:41 AMB [id number]) Current Condition History of Current Condition Onset Date sometime May 2020 Current Complaints heaviness, urinary leakage History of Current Condition Prolapse concerns. Urgency since 30s. Vaginal delivery with episiotomy of 9.5 pound baby and then twins. Hysterectomy 1991 for endometriosis, ovaries, cervix . Hormone patch currently. Was fit for a pessary, it's being ordered, hasn't started wearing it yet. Prior Functional Status Baseline Function- ADL's Modified Independent Baseline Function- Mobility Modified Independent Current Functional Impairments (Reported) Functional Limitations- ADL's Long standing urge incontinence and urinary frequency, more recent stress incontinence and cystocele/ rectocele sx Personal Factors Other Personal Factors That May Effect currently getting work up for Therapy/Recovery cardiac issues: CHF, SOB. PT-OP-C Subjective Start: 08/11/20 08:05 Freq: Status: Active Protocol: Document 09/06/20 11:22 AMB (Rec: 09/08/20 15:44 AMB [id number]) OP-PT Subjective Patient Comments Patient Comments Nayeli is feeling the pessary is helpful, tried to do the pelvic alignment exercises but it increases her back pain. PT-OP-I Pelvic Floor Start: 08/11/20 08:05 Freq: Status: Active Protocol: Document 08/11/20 14:15 AMB (Rec: 08/11/20 16:23 AMB [id number]) Pelvic Floor Assessment Urine Pelvic Floor Surgery hysterectomy Urinary Symptoms Urge Sensation,Prolapse, Falling Out Feeling/Heavy Leakage Size Large Leakage Cause Cough,Exercise,Lifting,Sneeze, Urge Leaks Per Day 4 Voiding Frequency 20 min-2 hr Nocturia 2 Bowel Bowel Symptoms Constipation Prolapse Cystocele Grade 3 Rectocele Grade 3 Perineal Descent Resting Present Bearing Present Contraction Ability Voluntary Contraction Weak Voluntary Relaxation Weak Manual Muscle Testing Left 2 Manual Muscle Testing Right 2 Manual Muscle Testing Anterior 2 Manual Muscle Testing Posterior 2 Muscle Endurance (Seconds) 3 Number of Quick Contractions In 10 4 Seconds Comments Pelvic Floor Comments Tends to compensate with abs PT-OP-T Assessment and Plan Start: 08/11/20 08:05 Freq: Status: Active Protocol: Document 09/06/20 11:22 AMB (Rec: 09/06/20 12:46 AMB [id number]) Physical Therapy Assessment Goals Two Impairment prolapse Short Term Goal (STG) Nayeli will be independent an consistent with her HEP for her pelvic floor strengthening . STG Duration MET Whipped Topping Mixer Goal (LTG) Nayeli will go for a walk with her pessary without a feeling of pelvic heaviness. LTG Duration MET One Impairment continence Short Term Goal (STG) Nayeli will reduce her daily leaks to 1x/day. STG Duration NOT MET Assisted Goal (LTG) Nayeli will lift a 10# box from the floor to waist height without leaking. LTG Duration NOT MET Assessment Summary Assessment Nayeli is wanting to be done with PT. She continues to have urgency, but is feeling like her pessary is helpful, and is really hoping for surgery when she is cleared by cardiology so feels she is ready to discharge at this time. Her urgency continues. Physical Therapy Plan Discharge Physical Therapy Discharge Reasons Patient Request
== END 2020-09-15 08:47 | disposition home or self-care (01) ==
LOC: PHYS 11:15
PROVIDERS: PCP Nurse Practitioner; Referring Provider Obstetrics & Gynecology; Visit Provider Obstetrics & Gynecology
DX: N95.2 Postmenopausal atrophic vaginitis (principal); N39.3 Stress incontinence (female) (male); N39.41 Urge incontinence; N81.10 Cystocele, unspecified
CPT/HCPCS: 97110; 97140; 97162

== ENCOUNTER 2020-09-24 17:41 | Emergency (ER) | payer MEDICARE, SELFPAY ==
[2020-09-24] VITALS (14 sets, daily range): BP systolic 151–230; BP diastolic 64–125; PULSE 62–98; RESP 8–30; TEMP 36.3; O2SAT 96–99; BMI 32.5
--- NOTE | 2020-09-24 18:00 | DI.RAD.S_ITS ---
[facility] ROCEDURE: XR CHEST 1V INDICATIONS: weak fatigued, SOB, palpitations TECHNIQUE: One view of the chest was acquired. COMPARISON: [facility], , CHEST 2 VIEW, 06/01/2010, 9:57. FINDINGS: Surgical changes and devices: Low anterior cervical fusion. Lungs and pleura: Lungs are clear. No pleural effusions or pneumothorax. Mediastinum: Mediastinal contours appear normal. Heart size is normal. Bones and chest wall: No suspicious bony lesions. Overlying soft tissues appear unremarkable. IMPRESSION: No acute process Dictated by: Amber Patel M.D. on 09/24/2020 at 18:46 Approved by: Amber Patel M.D. on 09/24/2020 at 18:46
--- NOTE | 2020-09-24 18:05 | ED_ITS ---
HPI - SOB/Dyspnea General Chief Complaint: Arrhythmia/Palpitations Stated Complaint: states something going on with Heart Time Seen by Provider: 09/24/20 17:59 Source: patient and family Mode of arrival: Ambulatory Limitations: no limitations History of Present Illness HPI Narrative: 70F former smoker with history of arrhythmia and ablation presents with increasing episodes of palpitations and shakiness and generally feeling unwell over the past few days. She denies dizziness, weakness or lightheadedness. She denies fever or chills. She denies chest pain. She denies nausea, vomiting or diarrhea. She states that about 2 weeks ago she started taking flecainide but does not like the way it makes her feel so she stopped taking it few days ago. Additionally, she has recently started taking Ambien for sleep. She denies recent travel, expsoure to persons with COVID. She states she's had these symptoms for quite some time, just never this bad. Onset (ago): day(s) Severity: moderate Consistency/Duration: intermittent Relieving factors: nothing Exacerbating factors: nothing Related Data Home Medications Medication Instructions Recorded Confirmed Vitamin D PO 06/06/19 08/31/20 oxybutynin chloride 5 mg See Rx Instructions PO DAILY PRN 06/06/19 08/31/20 tablet,extended release 24 hr tab furosemide 20 mg tablet 20 mg PO DAILY 06/28/20 08/31/20 potassium chloride 20 mEq 20 meq PO DAILY 06/28/20 08/31/20 tablet,extended release flecainide 50 mg tablet 50 mg PO Q12H 09/14/20 09/14/20 metoprolol tartrate 25 mg tablet 12.5 mg PO BID 09/14/20 09/14/20 Previous Rx's Medication Instructions Recorded cyclobenzaprine 10 mg tablet 10 mg PO BEDTIME PRN #30 tab 07/30/19 estradiol 0.075 mg/24 hr 1 patch TRANSDERMAL 2XW #24 each 06/15/20 semiweekly transdermal patch varicella-zoster glycoE [id number] 0.5 ml IM ONCE #1 each 06/15/20 adj(PF) 50 mcg/0.5 mL IM susp, kit Progesterone EAM 75mg 75 mg PO .HS #90 caplet 08/03/20 Testosterone 0.3mg 0.3 mg TOPICAL QAM 90 Days #1 tube 08/03/20 estradiol 1 g VAGINAL 2XW #42.5 g 09/03/20 oxyquinoline 0.025 %-sodium lauryl See Rx Instructions VAGINAL 09/03/20 sulfate 0.01 % vaginal gel .COMPLEX #113.4 g zolpidem 10 mg tablet 10 mg PO BEDTIME PRN #90 tab 09/14/20 Allergies Allergy/AdvReac Type Severity Reaction Status Date / Time doxycycline [DOXYCYCLINE] AdvReac Severe Pressure Verified 09/24/20 18:05 behind eyes/blurred vision/headaches citalopram [CITALOPRAM] AdvReac Intermediate FORGETFULNESS Verified 09/24/20 18:05 AND BRAIN FOG Review of Systems Constitutional Constitutional: Denies chills, Denies fatigue, Denies fever(s), Denies frequent falls, Denies lethargy and Denies weakness Eyes Eyes: Denies change in vision, Denies eye discharge, Denies irritation and Denies loss of vision ENT Ears, Nose, Mouth, and Throat: Denies change in voice, Denies dizziness, Denies neck pain, Denies sore throat and Denies throat swelling Cardiovascular Cardiovascular: Denies chest pain, Reports rapid heart rate, Reports irregular heart rhythm, Denies lightheadedness, Denies palpitations, Denies dyspnea, Denies dyspnea on exertion and Denies orthopnea Respiratory Respiratory: Denies cough, Denies dyspnea, Denies dyspnea on exertion and Denies wheezing Gastrointestinal Gastrointestinal: Denies abdominal pain, Denies change in bowel habits, Denies diarrhea, Denies nausea and Denies vomiting Musculoskeletal Musculoskeletal: Denies neck pain and Denies numbness Integumentary/Breasts Skin/Breast: Denies pruritus, Denies erythema, Denies rash and Denies wounds Neurologic Neurologic: Denies behavioral changes, Denies confusion, Denies dizziness, Denies frequent falls, Denies loss of vision, Denies numbness and Denies weakness Psychiatric Psychiatric: Denies anxiety, Denies behavioral changes, Denies confusion, Denies depression, Denies homicidal ideation and Denies suicidal ideation Endocrine Endocrine: Denies fatigue, Denies flushing and Denies palpitations Hematologic/Lymphatic Hematologic/Lymphatic: Denies easy bruising Allergic/Immunologic Allergic/Immunologic: Denies urticaria, Denies throat swelling and Denies wheezing Patient History Medical History Atrial tachycardia Cystocele Degeneration of intervertebral disc (03/20/11) Fall History of bariatric surgery (03/20/11) Insomnia Insufficiency, adrenal Intermittent palpitations Irregular heart rhythm Left foot pain Low back pain Mitral and aortic incompetence (03/20/11) Mixed incontinence Obesity (BMI 30.0-34.9) Obstructive sleep apnea Paroxysmal supraventricular tachycardia Primary osteoarthritis (03/20/11) Rectocele Right hip pain Sciatica, right side Steatosis of liver Vaginal atrophy Surgical History Status post hysterectomy Family History Father Heart disease Social History household members: spouse Smoking Status: Former smoker (quit 19 years ago) Tobacco: How many years used: 30 second hand exposure: Yes (rarely) alcohol intake: current (Usually vodka, 3 or 4 drinks a month) substance use type: marijuana (edibles/THC with CBD) Smoking Status: Former smoker (quit 19 years ago) Exam Narrative Exam Narrative: GENERAL: [70] year old patient appears stated age. Well- nourished, well-developed patient, in mild distress. HEAD: Atraumatic. Normocephalic. EYES: Pupils equal round and reactive. Extraocular motions intact. No scleral icterus. No injection or drainage. ENT: Nose without bleeding, purulent drainage. Throat without erythema, tonsillar hypertrophy or exudate. Airway patent. NECK: Trachea midline. Non tender CARDIOVASCULAR: Regular rate and rhythm without murmurs, gallops, or rubs. RESPIRATORY: Clear to auscultation. Breath sounds equal bilaterally. No wheezes, rales, or rhonchi. GASTROINTESTINAL: Abdomen soft, non-tender, nondistended. EXTREMITIES: No edema or joint tenderness. BACK: Nontender without deformity or crepitance. No flank tenderness. NEURO: AOx3. SKIN: No rash or erythema of visible areas Initial Vital Signs Initial Vital Signs: Vital Signs Pulse Rate 82 09/24/20 17:53 Blood Pressure 222/105 H 09/24/20 17:53 Pulse Oximetry 98 09/24/20 17:53 Course Orders Ordered: Discontinued Medications Sodium Chloride (Normal Saline 0.9%) 1,000 mls @ 150 mls/hr IV CONT WILFRIDO MDM - SOB/Dyspnea Lab Data Result diagrams: 09/24/20 18:05 09/24/20 18:05 Labs: Lab Results 09/24/20 09/24/20 09/24/20 Range/Units 18:05 18:05 18:05 WBC 10.5 (4.5-11.0) X10^3/uL RBC 4.80 (4.0-5.2) X10^6/uL Hgb 14.7 (12.0-16.0) g/dL Hct 43.7 (36-46) % MCV 91.1 (80-100) fL MCH 30.6 (26-34) PG MCHC 33.6 (30-36) % RDW 13.3 (11.6-14.8) % Plt Count 245 (150-400) X10^3/uL Neut % (Auto) 65.7 (50-75) % Lymph % (Auto) 26.6 (25-40) % Graves % (Auto) 6.3 (3-14) % Eos % (Auto) 0.7 L (2-4) % Baso % (Auto) 0.7 (0-2) % Neut # (Auto) 6900 (2955-6731) /uL Lymph # (Auto) 2800 (0581-8209) /uL Graves # (Auto) 700 (0-900) /uL Eos # (Auto) 100 (0-450) /uL Baso # (Auto) 100 (0-100) /uL PT 12.0 (10.1-12.7) SECONDS INR 1.0 (0.9-1.3) D-Dimer (<230) ng/mL Sodium 139 (137-145) mmol/L Potassium 3.9 (3.4-5.1) mmol/L Chloride 105 (98-107) mmol/L Carbon Dioxide 28 (22-32) mmol/L BUN 17 (7-17) mg/dL Creatinine 0.78 (0.52-1.04) mg/dL Estimated GFR > 60.0 (>60) mL/min BUN/Creatinine Ratio 21.8 (6-22) Glucose 131 H (80-110) mg/dL Calcium 9.8 (8.4-10.2) mg/dL Total Bilirubin 0.2 (0.2-1.3) mg/dL AST 22 (14-36) IU/L ALT 22 (<35) IU/L Alkaline Phosphatase 99 (38-126) U/L Total Creatine Kinase 39 (30-135) U/L CK-MB (CK-2) TNP CK-MB (CK-2) Rel Index TNP Troponin I < 0.012 (0.01-0.034) ng/mL NT-Pro-B Natriuret Pep 126 H (<125) pg/mL Total Protein 8.0 (6.3-8.2) g/dL Albumin 4.5 (3.5-5.0) g/dL Globulin 3.5 (1.7-4.1) g/dL Albumin/Globulin Ratio 1.3 (1.0-2.8) Lipase 51 (23-300) U/L SARS-CoV-2 (PCR) (Negative) 09/24/20 09/24/20 Range/Units 18:05 19:25 WBC (4.5-11.0) X10^3/uL RBC (4.0-5.2) X10^6/uL Hgb (12.0-16.0) g/dL Hct (36-46) % MCV (80-100) fL MCH (26-34) PG MCHC (30-36) % RDW (11.6-14.8) % Plt Count (150-400) X10^3/uL Neut % (Auto) (50-75) % Lymph % (Auto) (25-40) % Graves % (Auto) (3-14) % Eos % (Auto) (2-4) % Baso % (Auto) (0-2) % Neut # (Auto) (1587-8997) /uL Lymph # (Auto) (3842-3186) /uL Graves # (Auto) (0-900) /uL Eos # (Auto) (0-450) /uL Baso # (Auto) (0-100) /uL PT (10.1-12.7) SECONDS INR (0.9-1.3) D-Dimer < 200 (<230) ng/mL Sodium (137-145) mmol/L Potassium (3.4-5.1) mmol/L Chloride (98-107) mmol/L Carbon Dioxide (22-32) mmol/L BUN (7-17) mg/dL Creatinine (0.52-1.04) mg/dL Estimated GFR (>60) mL/min BUN/Creatinine Ratio (6-22) Glucose (80-110) mg/dL Calcium (8.4-10.2) mg/dL Total Bilirubin (0.2-1.3) mg/dL AST (14-36) IU/L ALT (<35) IU/L Alkaline Phosphatase (38-126) U/L Total Creatine Kinase (30-135) U/L CK-MB (CK-2) CK-MB (CK-2) Rel Index Troponin I (0.01-0.034) ng/mL NT-Pro-B Natriuret Pep (<125) pg/mL Total Protein (6.3-8.2) g/dL Albumin (3.5-5.0) g/dL Globulin (1.7-4.1) g/dL Albumin/Globulin Ratio (1.0-2.8) Lipase (23-300) U/L SARS-CoV-2 (PCR) Negative (Negative) Imaging Data Chest x-ray: Radiologist's Impression: Nayeli Fenton 70 F [address] [id number] ReportSigned Patient: Nayeli Fenton CMR#: [id number]: 1950cct:[id number]/Sex: 70 / FDate of Service: 09/24/20Loc: EDAccession Number: [id number] Procedure: XR chest 1V Ordering Provider: Dileep Dee D.O. ROCEDURE: XR CHEST 1V INDICATIONS: weak fatigued, SOB, palpitations TECHNIQUE: One view of the chest was acquired. COMPARISON: [facility], , CHEST 2 VIEW, 06/01/2010, 9:57. FINDINGS: Surgical changes and devices: Low anterior cervical fusion. Lungs and pleura: Lungs are clear. No pleural effusions or pneumothorax. Mediastinum: Mediastinal contours appear normal. Heart size is normal. Bones and chest wall: No suspicious bony lesions. Overlying soft tissues appear unremarkable. IMPRESSION: No acute process Dictated by: Amber Patel M.D. on 09/24/2020 at 18:46 Approved by: Amber Patel M.D. on 09/24/2020 at 18:46 Discharge Plan Departure Patient Disposition: Home Clinical Impression: Palpitations Instructions: DI for Palpitations Activity Restrictions/Additional Instructions: *You have been diagnosed with [palpitations, feeling unwell, perhaps related to recent medication changes. Your labs, EKGs and exam are very reassuring today] *What to do: *Take medications as directed *Follow up with your primary care provider in 2-3 days, call for an appointment. Let them know you were seen in the Emergency Department and that we ask that you be seen in follow up *Return to ER if you should have any new, worsening or concerning symptoms Prescriptions: No Action cyclobenzaprine 10 mg tablet 10 mg PO BEDTIME PRN (Reason: muscle spasm) Qty: 30 RF: 3 Progesterone EAM 75mg 75 mg PO .HS Qty: 90 RF: 3 Testosterone 0.3mg 0.3 mg topical QAM 90 Days Qty: 1 RF: 3 Trimo-Rider Jelly 0.025-0.01 % gel See Rx Instructions vaginal .COMPLEX Qty: 113.4 RF: 3 estradiol 0.01 % (0.1 mg/gram) cream 1 g vaginal 2XW Qty: 42.5 RF: 3 estradiol [Vivelle-Dot] 0.075 mg/24 hr patch semiweekly 1 patch transdermal 2XW Qty: 24 RF: 3 Shingrix (PF) 50 mcg/0.5 mL suspension for reconstitution 0.5 ml IM ONCE Qty: 1 RF: 0 furosemide 20 mg tablet 20 mg PO DAILY RF: 0 potassium chloride 20 mEq tablet extended release 20 meq PO DAILY RF: 0 flecainide 50 mg tablet 50 mg PO Q12H RF: 0 metoprolol tartrate 25 mg tablet 12.5 mg PO BID RF: 0 zolpidem 10 mg tablet 10 mg PO BEDTIME PRN (Reason: insomnia) Qty: 90 RF: 3 oxybutynin chloride 5 mg tablet extended release 24hr See Rx Instructions PO DAILY PRNRF: 0 Vitamin D PO RF: 0 Referrals: Rose Lopez ARNP [Primary Care Provider] -
[2020-09-24 18:17] LABS: Add Manual Diff / Slide Review NO; Basophils Absolute Auto 100 /uL (0-100); Basophils Percent Auto 0.7 % (0-2); Eosinophils Absolute Auto 100 /uL (0-450); Eosinophils Percent Auto 0.7 % (2-4); Hematocrit 43.7 % (36-46); Hemoglobin 14.7 g/dL (12.0-16.0); Lymphocytes Absolute Auto 2800 /uL (1100-4500); Lymphocytes Percent Auto 26.6 % (25-40); Mean Corpuscular HGB Conc 33.6 % (30-36); Mean Corpuscular Hemoglobin 30.6 PG (26-34); Mean Corpuscular Volume 91.1 fL (80-100); Monocytes Absolute Auto 700 /uL (0-900); Monocytes Percent Auto 6.3 % (3-14); Neutrophils Absolute Auto 6900 /uL (1500-7000); Neutrophils Percent Auto 65.7 % (50-75); Platelet Count 245 X10^3/uL (150-400); Red Cell Distribution Width 13.3 % (11.6-14.8); White Blood Cell Count 10.5 X10^3/uL (4.5-11.0)
[2020-09-24 18:28] LABS: Alanine Aminotransferase 22 IU/L (<35); Albumin 4.5 g/dL (3.5-5.0); Albumin Globulin Ratio 1.3 (1.0-2.8); Alkaline Phosphatase 99 U/L (38-126); Aspartate Aminotransferase 22 IU/L (14-36); BUN Creatinine Ratio 21.8 (6-22); Bilirubin Total 0.2 mg/dL (0.2-1.3); Blood Urea Nitrogen 17 mg/dL (7-17); Calcium 9.8 mg/dL (8.4-10.2); Carbon Dioxide 28 mmol/L (22-32); Chloride 105 mmol/L (98-107); Creatine Kinase 39 U/L (30-135); Estimated Glomerular Filt Rate > 60.0 mL/min (>60); Globulin 3.5 g/dL (1.7-4.1); Glucose 131 mg/dL (80-110); HEMOLYSIS < 15 (0-50); Lipase 51 U/L (23-300); Potassium 3.9 mmol/L (3.4-5.1); Sodium 139 mmol/L (137-145)
[2020-09-24 18:40] LABS: NT-proBNP (BNP-Adult 18+) 126 pg/mL (<125); Troponin I < 0.012 ng/mL (0.01-0.034)
[2020-09-24 19:55] LABS: COVID19 -Nasal RAPID Negative (Negative)
[2020-09-24 19:56] LABS: D Dimer < 200 ng/mL (<230)
== END 2020-09-24 20:51 | disposition home or self-care (01) ==
PROVIDERS: Emergency Provider Emergency Medicine; PCP Nurse Practitioner
DX: R00.2 Palpitations (principal); I47.1 Supraventricular tachycardia; R53.1 Weakness; R53.83 Other fatigue; R06.02 Shortness of breath; Z20.822 Contact with and (suspected) exposure to COVID-19
CPT/HCPCS: 36415; 71045; 80053; 82550; 83690; 83880; 84484; 85025; 85379; 85610; 87635; 93005; 99283; 99284; C9803

== ENCOUNTER → 2020-11-24 16:06 | Outpatient (CLI) | payer MEDICARE, SELFPAY ==
--- NOTE | 2020-11-24 16:19 | DI.ECHO.S_ITS ---
Referring: MARILUZ DAWN Clinician: Sonal Guaman Reason For Study: PALPITATIONS, PULMONARY HYPERTENSION History: Summary Statements Normal sinus rhythm with very frequent PAC's and short runs of SVT during the exam. The left ventricle is normal in size, wall thickness and LV systolic function without focal wall motion abnormalities. EF is 60-65%. Normal chamber sizes. No significant valvular abnormalities. Compared to prior study 12/28/2013, frequent short runs of SVT and frequent PAC's are newly described. Procedure: A two-dimensional transthoracic echocardiogram with color flow and Doppler was performed. There is no prior echocardiogram noted for this patient. Most of the acoustic windows were suboptimal, but the best imaging was obtained from the apical window. The heart rate ranged between 66-84 bpm during the study. The patient had frequent PACs during the exam. Left Ventricle: Diastolic parameters suggest probable normal left ventricular diastolic function and normal filling pressures. The ejection fraction is estimated to be 60-65%. The left ventricle is normal in size and wall thickness. Right Ventricle: The right ventricle is normal in size and function. Atria: There is no Doppler evidence for an interatrial shunt. The left atrial size is normal. Right atrial size is normal. Mitral Valve: There is trace mitral regurgitation. The mitral valve is normal in structure and function. Aortic Valve: There is trace aortic regurgitation. There is no aortic valve stenosis. The aortic valve is not well visualized. Tricuspid Valve: There is trace tricuspid regurgitation. Pulmonary artery pressures cannot be estimated because of the lack of a measurable TR jet velocity but the IVC suggests a CVP of around 3 mmHg. The tricuspid valve is normal in structure and function. Pulmonic Valve: There is no pulmonic valvular regurgitation. The pulmonic valve is not well visualized. Great Vessels: The dimensions of the ascending aorta are normal. The aortic root is normal size. The IVC is of normal diameter and collapses greater than 50% with a sniff. This suggests a low right atrial pressure of 3 mm Hg. Pericardium/ Pleura: There is no pericardial effusion. There is no pleural effusion. 2D and M-Mode Measurements and Calculations LVIDd: 4.0 cm AoV Openin.69 cm LVIDs: 2.7 cm LVOT diam: 1.92 cm IVSd: 0.82 cm Ao root diam: 2.6 cm LVPWd: 0.59 cm asc Aorta Diam: 3.1 cm LV schilling. diameter/BSA (cm/m^2): 2.09 LV sys. diameter/BSA (cm/m^2): 1.41 RVD1 (basal): 2.26 cm IVC diam: 1.61 cm TAPSE: 1.95 cm LA A4 area: 16.1 cm?? RA area: 11.8 cm?? LA A2 area: 18.2 cm?? RA long axis: 4.6 cm LA length (vol): 4.8 cm RA vol: 25.8 ml LA vol: 51.8 ml RA : 13.6 ml/m?? LA vol index: 27.2 ml/m?? Doppler Measurements and Calculations Ao V2 max: 147.8 cm/sec LVOT Max Rui: 110.1 cm/sec Ao V2 mean: 95.3 cm/sec LV V1 max P.9 mmHg Ao V2 VTI: 34.1 cm LV V1 VTI: 26.8 cm Ao max P.7 mmHg Ao mean P.2 mmHg LURDES(I,D): 2.28 cm?? LURDES(V,D): 2.15 cm?? LURDES indexed to BSA (cm^2/m^2): 1.20 sev ratio: 0.79 MV E max rui: 93.4 cm/sec MV dec time: 0.24 sec MV A max rui: 95.5 cm/sec MV E/A: 0.98 Med Peak E' Rui: 9.0 cm/sec Lat Peak E' Rui: 9.3 cm/sec E/e' average: 10.2 PA V2 max: 124.6 cm/sec PA mean P.2 mmHg Electronically signed by: Sydney Cabral M.D. 11/25/2020, 12: 36 AM
== END ==
PROVIDERS: PCP Nurse Practitioner; Referring Provider Nurse Practitioner; Visit Provider Nurse Practitioner
DX: R00.2 Palpitations (principal); I27.20 Pulmonary hypertension, unspecified
CPT/HCPCS: 93306

== ENCOUNTER → 2021-01-26 09:32 | Outpatient (CLI) | payer MEDICARE, SELFPAY ==
[2021-01-26 10:25] LABS: Hemoglobin 14.3 g/dL (12.0-16.0)
[2021-01-26 14:04] LABS: COVID19 -Nasal RAPID Negative (Negative)
== END ==
PROVIDERS: PCP Nurse Practitioner; Referring Provider Nurse Practitioner; Visit Provider Nurse Practitioner
DX: I10 Essential (primary) hypertension (principal); R00.2 Palpitations; R06.02 Shortness of breath
CPT/HCPCS: 36415; 85018; 87635; C9803

== ENCOUNTER → 2021-01-27 06:59 | Outpatient (CLI) | payer MEDICARE, SELFPAY ==
--- NOTE | 2021-02-02 09:21 | PM.PFT.1 ---
Pulmonary Function Test Referral & Results Date Patient Seen: 01/27/21 Requesting provider: Rose Lopez Indication: Shortness of breath Results: The spirometry demonstrates an FVC of 2.43 L which is 82% of predicted. The FEV1 was measured at 1.86 L which is 83% of predicted. The FEV1/FVC ratio was 77 which is 100% of predicted. Following the administration of bronchodilator there was no appreciable change. Lung volumes show an SVC of 3.12 L which is 110% of predicted. The diffusing capacity was measured at 21.01 which is 89% of predicted. The maximum voluntary ventilation was minimally reduced Interpretation: This study demonstrates perhaps very mild obstructive lung disease based on minimal reduction FEV1. Shape a flow volume loop but also support obstructive lung disease being present. There is no evidence of benefit following bronchodilator however. Lung volumes are normal and diffusing capacity should also be considered normal.
== END ==
PROVIDERS: PCP Nurse Practitioner; Referring Provider Nurse Practitioner; Visit Provider Nurse Practitioner
DX: R00.2 Palpitations (principal); R06.02 Shortness of breath; Z87.891 Personal history of nicotine dependence; J98.8 Other specified respiratory disorders
CPT/HCPCS: 94060; 94726; 94729

== ENCOUNTER → 2021-02-08 07:56 | Outpatient (CLI) | payer MEDICARE, SELFPAY ==
--- NOTE | 2021-02-08 07:58 | DI.RAD.S_ITS ---
PROCEDURE: XR CERVICAL SPINE 2V OR 3V INDICATIONS: -Fusion C3-C7, check hardware TECHNIQUE: 3 view(s) of the cervical spine were acquired. COMPARISON: None. FINDINGS: Bones: No fractures or dislocations to the T1 level. The lateral masses of C1 appear intact on the odontoid view. No suspicious bony lesions. Anterior fusion plate extending from C3 through C7. No evidence of device loosening or disruption. Soft tissues: No prevertebral soft tissue swelling. IMPRESSION: Anterior cervical fusion plate as discussed, no evidence of loosening or disruption. No malalignment seen. Dictated by: Nate Mart M.D. on 02/08/2021 at 10:32 Approved by: Nate Mart M.D. on 02/08/2021 at 10:32
== END ==
PROVIDERS: PCP Nurse Practitioner; Referring Provider Nurse Practitioner; Visit Provider Nurse Practitioner
DX: M54.2 Cervicalgia (principal); Z98.1 Arthrodesis status
CPT/HCPCS: 72040

== ENCOUNTER 2021-04-11 09:30 | Emergency (ER) | payer MEDICARE, SELFPAY ==
[2021-04-11 09:44] VITALS: BP 198/90; PULSE 84; RESP 14; TEMP 36.3; O2SAT 99
--- NOTE | 2021-04-11 09:49 | DI.RAD.S_ITS ---
PROCEDURE: XR CHEST 1V INDICATIONS: chest pain TECHNIQUE: One view of the chest was acquired. COMPARISON: [facility], CR, XR CHEST 1V, 09/24/2020, 18:36. FINDINGS: Surgical changes and devices: Left chest wall pulse generator with no cardiac leads identified. Lungs and pleura: Lungs are clear. No pleural effusions or pneumothorax. Mediastinum: Mediastinal contours appear normal. Heart size is normal. Bones and chest wall: No suspicious bony lesions. Overlying soft tissues appear unremarkable. IMPRESSION: No acute cardiopulmonary process demonstrated radiographically. Dictated by: Jose Mcdonald M.D. on 04/11/2021 at 10:34 Approved by: Jose Mcdonald M.D. on 04/11/2021 at 10:34
[2021-04-11 10:33] LABS: Add Manual Diff / Slide Review NO; Basophils Absolute Auto 0 /uL (0-100); Basophils Percent Auto 0.5 % (0-2); Eosinophils Absolute Auto 100 /uL (0-450); Eosinophils Percent Auto 1.1 % (2-4); Hematocrit 41.4 % (36-46); Hemoglobin 14.1 g/dL (12.0-16.0); Lymphocytes Absolute Auto 2300 /uL (1100-4500); Lymphocytes Percent Auto 24.9 % (25-40); Mean Corpuscular Hemoglobin 30.7 PG (26-34); Mean Corpuscular Volume 90.4 fL (80-100); Monocytes Absolute Auto 500 /uL (0-900); Monocytes Percent Auto 5.2 % (3-14); Neutrophils Absolute Auto 6300 /uL (1500-7000); Neutrophils Percent Auto 68.3 % (50-75); Platelet Count 216 X10^3/uL (150-400); Red Blood Cell Count 4.58 X10^6/uL (4.0-5.2); Red Cell Distribution Width 13.3 % (11.6-14.8); White Blood Cell Count 9.2 X10^3/uL (4.5-11.0)
[2021-04-11 10:42] LABS: Alanine Aminotransferase 16 IU/L (<35); Albumin 4.4 g/dL (3.5-5.0); Albumin Globulin Ratio 1.3 (1.0-2.8); Alkaline Phosphatase 98 U/L (38-126); Aspartate Aminotransferase 21 IU/L (14-36); BUN Creatinine Ratio 21.9 (6-22); Bilirubin Total 0.3 mg/dL (0.2-1.3); Blood Urea Nitrogen 16 mg/dL (7-17); Calcium 9.5 mg/dL (8.4-10.2); Carbon Dioxide 24 mmol/L (22-32); Chloride 107 mmol/L (98-107); Creatine Kinase 26 U/L (30-135); Estimated Glomerular Filt Rate > 60.0 mL/min (>60); Globulin 3.4 g/dL (1.7-4.1); Glucose 102 mg/dL (80-110); HEMOLYSIS < 15 (0-50); Lipase 45 U/L (23-300); Magnesium 1.8 mg/dL (1.6-2.3); Potassium 4.2 mmol/L (3.4-5.1); Sodium 139 mmol/L (137-145); Total Protein 7.8 g/dL (6.3-8.2)
[2021-04-11 10:53] LABS: Troponin I < 0.012 ng/mL (0.01-0.034)
--- NOTE | 2021-04-11 11:06 | ED.GENADULT ---
HPI - General Adult General Chief complaint: Dizziness Stated complaint: having dizzy spell Time Seen by Provider: 04/11/21 10:28 Source: patient Mode of arrival: Ambulatory Limitations: no limitations History of Present Illness HPI narrative: 70-year-old female who was sent over from her primary doctor's office for initially a description of concern for acute coronary syndrome. Patient states that during her primary doctor's visit this morning she was very diaphoretic. She does have a ZIO patch on for evaluation of palpitations. That was placed at the end of last week and is supposed to have it on for the next couple days. She has had episodes where she feels like her head is dizzy and like she is drunk. These events occur her last for short period of time and then completely resolved. She is not sure if they are associated with any palpitations. She is not currently having symptoms. She was sent over for further evaluation by her primary doctor. Related Data Home Medications Medication Instructions Recorded Confirmed Vitamin D PO 06/06/19 02/24/21 oxybutynin chloride 5 mg See Rx Instructions PO DAILY PRN 06/06/19 02/24/21 tablet,extended release 24 hr tab spironolactone 25 mg tablet 25 mg PO DAILY 04/11/21 04/11/21 Previous Rx's Medication Instructions Recorded estradiol 0.075 mg/24 hr 1 patch TRANSDERMAL 2XW #24 each 06/15/20 semiweekly transdermal patch (Vivelle-Dot) Progesterone EAM 75mg 75 mg PO .HS #90 caplet 08/03/20 estradiol 1 g VAGINAL 2XW #42.5 g 09/03/20 oxyquinoline 0.025 %-sodium lauryl See Rx Instructions VAGINAL 09/03/20 sulfate 0.01 % vaginal gel .COMPLEX #113.4 g (Trimo-Rider Jelly) zolpidem 10 mg tablet 10 mg PO BEDTIME PRN #90 tab 09/14/20 cyclobenzaprine 10 mg tablet 10 mg PO BEDTIME PRN #30 tab 02/16/21 alprazolam 0.25 mg tablet 0.125 mg PO TID #30 tab 04/11/21 Allergies Allergy/AdvReac Type Severity Reaction Status Date / Time doxycycline [DOXYCYCLINE] AdvReac Severe Pressure Verified 04/11/21 08:55 behind eyes/blurred vision/headaches Review of Systems Constitutional Constitutional: Denies fatigue, Denies fever(s) and Denies headache(s) Eyes Eyes: Reports system reviewed and no additional complaints, except as documented ENT Ears, Nose, Mouth, and Throat: Denies headache(s) Cardiovascular Cardiovascular: Reports system reviewed and no additional complaints, except as documented Respiratory Respiratory: Reports system reviewed and no additional complaints, except as documented Gastrointestinal Gastrointestinal: Reports system reviewed and no additional complaints, except as documented Genitourinary Genitourinary: Reports system reviewed and no additional complaints, except as documented Integumentary/Breasts Skin/Breast: Reports system reviewed and no additional complaints, except as documented Neurologic Neurologic: Denies headache(s) Endocrine Endocrine: Denies fatigue Hematologic/Lymphatic On Anticoagulants: No Allergic/Immunologic Allergic/Immunologic: Reports system reviewed and no additional complaints, except as documented Patient History Medical History Atrial tachycardia Cystocele Degeneration of intervertebral disc (03/20/11) Fall History of bariatric surgery (03/20/11) Insomnia (~10/2019) Insufficiency, adrenal Intermittent palpitations Irregular heart rhythm Left foot pain Low back pain Mitral and aortic incompetence (03/20/11) Mixed incontinence Obesity (BMI 30.0-34.9) Obstructive sleep apnea (~10/2019) Palpitations Paroxysmal supraventricular tachycardia Primary osteoarthritis (03/20/11) Rectocele Right hip pain Sciatica, right side Steatosis of liver Vaginal atrophy Vaginal pessary in situ Surgical History Status post hysterectomy Family History Father Heart disease Social History household members: spouse Smoking Status: Former smoker Tobacco: How many years used: 30 second hand exposure: Yes (rarely) alcohol intake: current (Usually vodka, 3 or 4 drinks a month) substance use type: marijuana (edibles/THC with CBD) Smoking Status: Former smoker Substance Use Type: does not use Exam Initial Vital Signs Initial Vital Signs: Vital Signs Temperature 97.4 F L 04/11/21 09:44 Pulse Rate 84 04/11/21 09:44 Respiratory Rate 14 04/11/21 09:44 Blood Pressure 198/90 H 04/11/21 09:44 Pulse Oximetry 99 04/11/21 09:44 Const General: cooperative, healthy appearing and comfortable HENMT Head: normal to inspection and normocephalic Eyes General: appearance normal, both eyes and all related structures Resp Effort & Inspection: normal respiratory effort Auscultation: clear to auscultation bilaterally Cardio Rate: regular rate Rhythm: regular rhythm GI Inspection: normal to inspection Skin General: no rashes or lesions noted Neuro General: patient alert, patient awake and patient oriented x3 Cognition: normal cognition Speech: speech normal Gait: normal gait Extrem General: normal to inspection, capillary refill normal and No edema Psych Appearance: grossly normal Course Orders Ordered: ED Orders 04/11/21 09:49 XR chest 1V Stat EKG-12 Lead Stat 04/11/21 10:20 Complete Blood Count AUTO DIFF Stat Comprehensive Metabolic Panel Stat Lipase Stat Magnesium Stat TSH w/ Reflex to FT4 Stat Troponin & CK Cardiac Panel Stat 04/11/21 11:14 CT head/brain wo con Stat Vital Signs Vital signs: Vital Signs - 8 hr 04/11/21 09:44 Temperature 97.4 F L Pulse Rate 84 Respiratory Rate 14 Blood Pressure 198/90 H Pulse Oximetry 99 Medical Decision Making Lab Data Lab results reviewed: Yes I reviewed the patient's lab results. Result diagrams: 04/11/21 10:20 04/11/21 10:20 Labs: Lab Results 04/11/21 04/11/21 04/11/21 Range/Units 10:20 10:20 10:20 WBC 9.2 (4.5-11.0) X10^3/uL RBC 4.58 (4.0-5.2) X10^6/uL Hgb 14.1 (12.0-16.0) g/dL Hct 41.4 (36-46) % MCV 90.4 (80-100) fL MCH 30.7 (26-34) PG MCHC 34.0 (30-36) % RDW 13.3 (11.6-14.8) % Plt Count 216 (150-400) X10^3/uL Neut % (Auto) 68.3 (50-75) % Lymph % (Auto) 24.9 L (25-40) % [place] % (Auto) 5.2 (3-14) % Eos % (Auto) 1.1 L (2-4) % Baso % (Auto) 0.5 (0-2) % Neut # (Auto) 6300 (4695-9461) /uL Lymph # (Auto) 2300 (5640-0379) /uL [place] # (Auto) 500 (0-900) /uL Eos # (Auto) 100 (0-450) /uL Baso # (Auto) 0 (0-100) /uL Sodium 139 (137-145) mmol/L Potassium 4.2 (3.4-5.1) mmol/L Chloride 107 (98-107) mmol/L Carbon Dioxide 24 (22-32) mmol/L BUN 16 (7-17) mg/dL Creatinine 0.73 (0.52-1.04) mg/dL Estimated GFR > 60.0 (>60) mL/min BUN/Creatinine Ratio 21.9 (6-22) Glucose 102 (80-110) mg/dL Calcium 9.5 (8.4-10.2) mg/dL Magnesium 1.8 (1.6-2.3) mg/dL Total Bilirubin 0.3 (0.2-1.3) mg/dL AST 21 (14-36) IU/L ALT 16 (<35) IU/L Alkaline Phosphatase 98 (38-126) U/L Total Creatine Kinase 26 L (30-135) U/L CK-MB (CK-2) TNP CK-MB (CK-2) Rel Index TNP Troponin I < 0.012 (0.01-0.034) ng/mL Total Protein 7.8 (6.3-8.2) g/dL Albumin 4.4 (3.5-5.0) g/dL Globulin 3.4 (1.7-4.1) g/dL Albumin/Globulin Ratio 1.3 (1.0-2.8) Lipase 45 (23-300) U/L TSH 1.95 (0.47-4.68) uIU/mL Urine Dip Bedside Urine Glucose Negative Bedside Urine Bilirubin - Negative Bedside Urine Ketone - Negative Urine Specific Emmett 1.020 Bedside Urine Occult Blood - Negative Bedside Urine pH 6.0 Bedside Urine Protein - Negative Bedside Urine Urobilinogen - Negative Bedside Urine Nitrite - Negative Bedside Urine Leukocytes - Negative Esterase Point of care testing: Urine Dip Bedside Urine Glucose Negative Bedside Urine Bilirubin - Negative Bedside Urine Ketone - Negative Urine Specific Emmett 1.020 Bedside Urine Occult Blood - Negative Bedside Urine pH 6.0 Bedside Urine Protein - Negative Bedside Urine Urobilinogen - Negative Bedside Urine Nitrite - Negative Bedside Urine Leukocytes - Negative Esterase Imaging Data CT scan - head: Radiologist's Impression: [address] [id number] Scan ReportSigned Patient: Nayeli Fenton CMR#: [id number]: [id number]:[id number]/Sex: 70 / FDate of Service: 04/11/21Loc: EDAccession Number: [id number] Procedure: CT head/brain wo con Ordering Provider: Enrique Rosales D.O. PROCEDURE: CT HEAD/BRAIN WO CON INDICATIONS: dizziness and foggy head PCP concerned for TIA TECHNIQUE: Noncontrast 4.5 mm thick angled axial sections acquired from the foramen magnum to the vertex, with coronal and sagittal reformats. For radiation dose reduction, the following was used: automated exposure control, adjustment of mA and/or kV according to patient size. COMPARISON: None. FINDINGS: Cerebrum, Cerebellum and Brainstem: Mild cerebral and cerebellar volume loss as well as minimal multifocal hypoattenuation in the deep and subcortical white matter present. No acute hemorrhage or mass effect. Cullen-white distinction is preserved throughout the exam. Basal cisterns and foramen magnum are clear. Ventricles: Appropriate in size and position given the amount of cerebral atrophy. No evidence of hydrocephalus. Skull Base: The bony sella, pituitary gland and infundibulum are unremarkable. Clivus and craniovertebral relationships are appropriate. Visualized portions of external auditory canals and tympanic cavities are within normal limits. Calvarium and Scalp: No scalp soft tissue swelling. The underlying calvarium is intact without skull fracture or lytic lesion. Paranasal Sinuses: Unremarkable as visualized. No mucosal thickening or retention cyst noted. Mastoids: Unremarkable as visualized. No mastoid effusion present. Other: Atherosclerotic calcification in the cavernous portions of the distal internal carotid and intradural vertebral arteries are noted. IMPRESSION: White matter chronic ischemic change without acute hemorrhage or mass effect. Approved by: Josafat Ge M.D. on 04/11/2021 at 10:28 ECG Data Attestation: I personally reviewed and interpreted this ECG as follows: Interpretation: Sinus rhythm Ventricular rate is 78 Normal axis Normal QRS Normal QTC No ST T wave changes MDM Narrative Medical decision making narrative: Patient appears very well. Low suspicion for ACS given her clinical presentation. EKG is unremarkable. Low suspicion for TIA/CVA. She has not had any ectopy on the monitor. Feel that we can hold on further workup for now. Patient will contact her primary doctor to discuss further workup. She was given return precautions. She expressed understanding and agreement. Discharge Plan Departure Patient Disposition: Home Clinical Impression: Dizziness Instructions: DI for Dizziness-Nonvertigo Activity Restrictions/Additional Instructions: Your workup here in the emergency department is very reassuring. I recommend that you continue all of your medications as directed. Contact your primary doctor to discuss further workup. Return to the emergency department for any new or worsening symptoms Prescriptions: No Action Progesterone EAM 75mg 75 mg PO .HS Qty: 90 RF: 3 Trimo-Rider Jelly 0.025-0.01 % gel See Rx Instructions vaginal .COMPLEX Qty: 113.4 RF: 3 estradiol 0.01 % (0.1 mg/gram) cream 1 g vaginal 2XW Qty: 42.5 RF: 3 cyclobenzaprine 10 mg tablet 10 mg PO BEDTIME PRN (Reason: muscle spasm) Qty: 30 RF: 3 estradiol [Vivelle-Dot] 0.075 mg/24 hr patch semiweekly 1 patch transdermal 2XW Qty: 24 RF: 3 zolpidem 10 mg tablet 10 mg PO BEDTIME PRN (Reason: insomnia) Qty: 90 RF: 3 Hold Instructions: try Lunesta spironolactone 25 mg tablet 25 mg PO DAILY RF: 0 alprazolam 0.25 mg tablet 0.125 mg PO TID Qty: 30 RF: 0 oxybutynin chloride 5 mg tablet extended release 24hr See Rx Instructions PO DAILY PRNRF: 0 Vitamin D PO RF: 0 Referrals: Rose Lopez ARNP [Primary Care Provider] -
--- NOTE | 2021-04-11 11:14 | DI.CT.S_ITS ---
PROCEDURE: CT HEAD/BRAIN WO CON INDICATIONS: dizziness and foggy head PCP concerned for TIA TECHNIQUE: Noncontrast 4.5 mm thick angled axial sections acquired from the foramen magnum to the vertex, with coronal and sagittal reformats. For radiation dose reduction, the following was used: automated exposure control, adjustment of mA and/or kV according to patient size. COMPARISON: None. FINDINGS: Cerebrum, Cerebellum and Brainstem: Mild cerebral and cerebellar volume loss as well as minimal multifocal hypoattenuation in the deep and subcortical white matter present. No acute hemorrhage or mass effect. Cullen-white distinction is preserved throughout the exam. Basal cisterns and foramen magnum are clear. Ventricles: Appropriate in size and position given the amount of cerebral atrophy. No evidence of hydrocephalus. Skull Base: The bony sella, pituitary gland and infundibulum are unremarkable. Clivus and craniovertebral relationships are appropriate. Visualized portions of external auditory canals and tympanic cavities are within normal limits. Calvarium and Scalp: No scalp soft tissue swelling. The underlying calvarium is intact without skull fracture or lytic lesion. Paranasal Sinuses: Unremarkable as visualized. No mucosal thickening or retention cyst noted. Mastoids: Unremarkable as visualized. No mastoid effusion present. Other: Atherosclerotic calcification in the cavernous portions of the distal internal carotid and intradural vertebral arteries are noted. IMPRESSION: White matter chronic ischemic change without acute hemorrhage or mass effect. Approved by: Josafat Ge M.D. on 04/11/2021 at 10:28
[2021-04-11 11:37] LABS: TSH w/ Reflex to FT4 1.95 uIU/mL (0.47-4.68)
[2021-04-11 12:18] VITALS: BP 160/73; PULSE 79; RESP 20; O2SAT 95
== END 2021-04-11 12:21 | disposition home or self-care (01) ==
PROVIDERS: Emergency Provider Emergency Medicine; PCP Nurse Practitioner
DX: R42 Dizziness and giddiness (principal); R07.9 Chest pain, unspecified
CPT/HCPCS: 36415; 70450; 71045; 80053; 81003; 82550; 83690; 83735; 84443; 84484; 85025; 93005; 93010; 99284

== ENCOUNTER → 2021-04-29 12:44 | Outpatient (CLI) | payer MEDICARE, SELFPAY ==
--- NOTE | 2021-04-29 12:45 | DI.MRI.S_ITS ---
PROCEDURE: MR CERVICAL SPINE WO/W CON INDICATIONS: Neck pain (chronic) with dizziness, cardiac issues, gut issu TECHNIQUE: Noncontrast sagittal T1 spin echo and T2 fast spin echo, sagittal STIR, foraminal oblique sagittal T2 fast spin echo, axial gradient echo or T2 fast spin echo through the cervical spine. After the administration of contrast, axial and sagittal T1 spin echo with fat saturation through the cervical spine. COMPARISON: [facility], MR, C-SPINE WITHOUT CONTRAST, 08/13/2012, 18:19. [facility], CR, XR CERVICAL SPINE 2V OR 3V, 02/08/2021, 8:09. FINDINGS: Image quality: There is artifact associated with the metallic hardware. This examination is limited by involuntary motion artifact. Alignment and curvature: There is straightening of the normal cervical lordosis. No focal AP alignment abnormality is seen. Marrow: Marrow is normal in overall signal, without suspicious enhancement. Spinal cord: Visualized spinal cord has normal size and signal. No cerebellar tonsillar herniation. No abnormal intramedullary enhancement. Paraspinous soft tissues: No paravertebral masses or suspicious enhancement. Extensive fixation hardware is seen, with an anterior fusion plate seen C3 through C7. C2-3: Moderate loss of disc height is seen. Loss of disc signal is seen. Mild to moderate disc osteophyte complex is seen. There is moderate right-sided and prominent left-sided facet hypertrophy seen. There is moderate left-sided and minimal right-sided neural foraminal narrowing seen. Mild central canal narrowing is seen. These imaging findings have progressed compared to the prior study. C3-4: Wsso-jz-cwudjtjk disc osteophyte complex is seen. Moderate facet joint hypertrophy is seen. Moderate bilateral neural foraminal narrowing is seen. The central canal is widely patent. The degrees of narrowing appear improved compared to 2012. C4-5: A mild degree of generalized disc osteophyte complex is seen. No significant neural foraminal or central canal narrowing can be seen. When comparison is made with the prior images, these findings are similar. C5-6: At least moderate disc osteophyte complex is seen, which is eccentric to the right. There is moderate right-sided and obvn-bw-mriipgax left-sided facet hypertrophy seen. There is moderate to severe right-sided and moderate left-sided neural foraminal narrowing seen. Mild central canal narrowing is seen. When comparison is made with the prior images, these findings are similar. C6-7: Moderate generalized disc osteophyte complex is seen. There is a central/left disc osteophyte protrusion seen. Moderate facet joint hypertrophy is seen. Moderate bilateral neural foraminal narrowing is seen. Mild central canal narrowing is seen. When comparison is made with the prior images, these findings are similar. C7-T1: Moderate loss of disc height is seen. Loss of disc signal is seen. Moderate generalized disc osteophyte complex is seen. Mild facet joint hypertrophy is seen. No significant neural foraminal or central canal narrowing can be seen. When comparison is made with the prior images, these findings are similar. IMPRESSION: Extensive anterior fixation hardware can be seen. Multiple levels of degenerative change are seen, which are similar to the prior MRI, although the degrees of degenerative change have progressed at C2-C3 compared to 2012 and the degrees of neural foraminal narrowing are improved at C3-C4 compared to 2012. Dictated by: Aren Wilkins M.D. on 04/29/2021 at 15:39 Approved by: Aren Wilkins M.D. on 04/29/2021 at 15:44
== END ==
PROVIDERS: PCP Nurse Practitioner; Referring Provider Nurse Practitioner; Visit Provider Nurse Practitioner
DX: M54.2 Cervicalgia (principal); M47.812 Spondylosis without myelopathy or radiculopathy, cervical region; R42 Dizziness and giddiness; R00.2 Palpitations; G89.28 Other chronic postprocedural pain; M48.02 Spinal stenosis, cervical region; Z98.1 Arthrodesis status
CPT/HCPCS: 72156; A9579

== ENCOUNTER 2021-04-29 14:30 | Outpatient (RCR) | payer MEDICARE, SELFPAY ==
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
== END 2021-05-03 11:34 | disposition home or self-care (01) ==
LOC: PHYS 14:30
PROVIDERS: PCP Nurse Practitioner; Referring Provider Nurse Practitioner; Visit Provider Nurse Practitioner
DX: S19.9XXA Unspecified injury of neck, initial encounter (principal); M54.2 Cervicalgia; S04.899 Injury of other cranial nerves, unspecified side; R00.2 Palpitations; I47.1 Supraventricular tachycardia; K58.9 Irritable bowel syndrome, unspecified
CPT/HCPCS: 97110; 97112; 97140; 97163; 97535

== ENCOUNTER → 2021-06-21 08:41 | Outpatient (CLI) | payer MEDICARE, SELFPAY ==
[2021-06-21 09:22] LABS: Add Manual Diff / Slide Review NO; Basophils Absolute Auto 0 /uL (0-100); Basophils Percent Auto 0.6 % (0-2); Eosinophils Absolute Auto 100 /uL (0-450); Eosinophils Percent Auto 1.2 % (2-4); Hematocrit 42.7 % (36-46); Hemoglobin 14.7 g/dL (12.0-16.0); Lymphocytes Absolute Auto 2500 /uL (1100-4500); Lymphocytes Percent Auto 31.5 % (25-40); Mean Corpuscular HGB Conc 34.4 % (30-36); Mean Corpuscular Hemoglobin 30.7 PG (26-34); Mean Corpuscular Volume 89.5 fL (80-100); Monocytes Absolute Auto 400 /uL (0-900); Monocytes Percent Auto 5.6 % (3-14); Neutrophils Absolute Auto 4800 /uL (1500-7000); Neutrophils Percent Auto 61.1 % (50-75); Platelet Count 244 X10^3/uL (150-400); Red Blood Cell Count 4.77 X10^6/uL (4.0-5.2); Red Cell Distribution Width 13.4 % (11.6-14.8); White Blood Cell Count 7.8 X10^3/uL (4.5-11.0)
[2021-06-21 09:36] LABS: BUN Creatinine Ratio 16.7 (6-22); Blood Urea Nitrogen 15 mg/dL (7-17); Calcium 9.5 mg/dL (8.4-10.2); Carbon Dioxide 24 mmol/L (22-32); Chloride 105 mmol/L (98-107); Cholesterol 254 mg/dL (140-199); Estimated Glomerular Filt Rate > 60.0 mL/min (>60); Glucose 102 mg/dL (80-110); HDL Cholesterol 52 mg/dL (40-60); HEMOLYSIS < 15 (0-50); LDL Cholesterol Calculated 163 mg/dL (<100); Potassium 4.4 mmol/L (3.4-5.1); Sodium 137 mmol/L (137-145); Triglycerides 195 mg/dL (35-150)
== END ==
PROVIDERS: PCP Nurse Practitioner; Referring Provider Internal Medicine Cardiovascular Disease; Visit Provider Internal Medicine Cardiovascular Disease
DX: E78.5 Hyperlipidemia, unspecified (principal)
CPT/HCPCS: 36415; 80048; 80061; 85025

== ENCOUNTER → 2021-10-03 11:03 | Outpatient (CLI) | payer MEDICARE, SELFPAY ==
[2021-10-03 12:23] LABS: Erythrocyte Sedimentation Rate 25 MM/HR (0-20)
[2021-10-03 12:34] LABS: C-Reactive Protein Quant 0.6 mg/dL (<1.0)
== END ==
PROVIDERS: PCP Nurse Practitioner; Referring Provider Internal Medicine; Visit Provider Internal Medicine
DX: R42 Dizziness and giddiness (principal)
CPT/HCPCS: 36415; 85651; 86140

== ENCOUNTER → 2021-10-22 13:45 | Outpatient (CLI) | payer MEDICARE, SELFPAY ==
--- NOTE | 2021-10-22 13:47 | DI.MG.S_ITS ---
BILATERAL DIGITAL SCREENING MAMMOGRAM 3D/2D WITH CAD: 10/22/2021 CLINICAL: Routine screening. Comparison is made to exams dated: 08/10/2020 mammogram, 06/07/2019 mammogram, and 06/03/2018 mammogram - [facility]. The tissue of both breasts is heterogeneously dense. This may lower the sensitivity of mammography. Current study was also evaluated with a Computer Aided Detection (CAD) system. No significant masses, calcifications, or other findings are seen in either breast. There has been no significant interval change. IMPRESSION: NEGATIVE There is no mammographic evidence of malignancy. A 1 year screening mammogram is recommended. This exam was interpreted at Station ID: [id number]. NOTE: For mammograms, a report in lay terms will be sent to the patient. Approximately 15% of breast malignancies will not be visualized mammographically. In the management of a palpable breast mass, a negative mammogram must not discourage biopsy of a clinically suspicious lesion. Electronically Signed By: Kalpana saenz/tomas:10/24/2021 09:48:24 letter sent: Normal Exam ACR BI-RADS Category 1: Negative [id number]
== END ==
PROVIDERS: PCP Nurse Practitioner; Referring Provider Nurse Practitioner; Visit Provider Nurse Practitioner
DX: Z12.31 Encounter for screening mammogram for malignant neoplasm of breast (principal)
CPT/HCPCS: 77063; 77067

== ENCOUNTER → 2022-03-22 09:34 | Outpatient (CLI) | payer MEDICARE, SELFPAY ==
[2022-03-22 09:55] LABS: Add Manual Diff / Slide Review NO; Basophils Absolute Auto 100 /uL (0-100); Basophils Percent Auto 0.7 % (0-2); Eosinophils Absolute Auto 100 /uL (0-450); Eosinophils Percent Auto 1.3 % (2-4); Hemoglobin 14.6 g/dL (12.0-16.0); Lymphocytes Absolute Auto 2100 /uL (1100-4500); Lymphocytes Percent Auto 27.8 % (25-40); Mean Corpuscular HGB Conc 34.1 % (30-36); Mean Corpuscular Hemoglobin 30.4 PG (26-34); Mean Corpuscular Volume 89.1 fL (80-100); Monocytes Absolute Auto 500 /uL (0-900); Monocytes Percent Auto 6.6 % (3-14); Neutrophils Absolute Auto 4900 /uL (1500-7000); Neutrophils Percent Auto 63.6 % (50-75); Platelet Count 247 X10^3/uL (150-400); Red Blood Cell Count 4.82 X10^6/uL (4.0-5.2); Red Cell Distribution Width 13.1 % (11.6-14.8); White Blood Cell Count 7.7 X10^3/uL (4.5-11.0)
[2022-03-22 09:58] LABS: INR 1.1 (0.9-1.3)
[2022-03-22 10:08] LABS: Blood Urea Nitrogen 17 mg/dL (7-17); Calcium 9.1 mg/dL (8.4-10.2); Carbon Dioxide 21 mmol/L (22-32); Chloride 104 mmol/L (98-107); Estimated Glomerular Filt Rate > 60 mL/min (>60); Glucose 112 mg/dL (80-110); HEMOLYSIS 17 (0-50); Potassium 4.4 mmol/L (3.4-5.1); Sodium 137 mmol/L (137-145)
== END ==
PROVIDERS: PCP Nurse Practitioner; Referring Provider Physician Assistant Medical; Visit Provider Physician Assistant Medical
DX: I47.1 Supraventricular tachycardia (principal)
CPT/HCPCS: 36415; 80048; 85025; 85610

== ENCOUNTER 2022-07-11 08:48 | Outpatient (CLI) | payer MEDICARE, SELFPAY ==
[2022-07-11] VITALS (10 sets, daily range): BP systolic 116–177; BP diastolic 57–84; PULSE 60–86; RESP 10–22; TEMP 36.5; O2SAT 95–99
--- NOTE | 2022-07-11 08:50 | DI.RAD.S_ITS ---
PROCEDURE: PAIN C/T INTERLAMINAR INJECT INDICATIONS: SPINAL STENOSIS COMPARISON: None. FINDINGS: Fluoroscopic spot filming was performed to verify placement of spinal needles at the C7-T1 interlaminar space level(s), as labeled on the films. Appropriate location(s) of the needle tip(s) was confirmed by injection of iodinated contrast. IMPRESSION: Access needle at the C7-T1 interlaminar space for translaminar epidural steroid injection. Dictated by: Harriet Diggs MD, PhD on 07/11/2022 at 14:13 Approved by: Harriet Diggs MD, PhD on 07/11/2022 at 14:14
[2022-07-11] MEDS: MIDAZOLAM 2 MG/2 ML VIAL 4 MG IV (10:00)
[2022-07-11] MEDS: IOPAMIDOL 15 ML VIAL 3 ML INJ (10:00)
[2022-07-11] MEDS: BUPIVACAINE 0.25% (PF) VIAL 2 ML INJ (10:01)
[2022-07-11] MEDS: DEXAMETHASONE 10 MG/ML VIAL 30 MG INJ (10:01)
--- NOTE | 2022-07-11 10:13 | P.PCN_ITS ---
Date/Time/Diagnoses Date of procedure: 07/11/22 Time of procedure: 10:13 Pre-procedure diagnosis: 1. CERVICAL STENOSIS, 2. CERVICAL HNP WITH UPPER EXTREMITY RADICULAR FEATURES Procedure Notes Procedure: FLUORSCOPICALLY GUIDED CONTRAST CONTROLLED INTERLAMINAR EPIDURAL STEROID INJECTION - C7/T1 TL ADRIEL Indications: Nayeli is referred by TAYLOR Lopez for treatment of Cervical Stenosis. Physician: Harsha Faulkner Total Fluoroscopy time (seconds): 27 Total sedation minutes: 15 Complications: none Procedure in detail & Post-procedure care: DESCRIPTION OF PROCEDURE Following review of allergy and review of potential side effects and co mplications, including, but not necessarily limited to, infection, allergic reaction, local tissue breakdown, temporary as well as permanent nerve injury, stroke, paralysis, and possible , the patient indicated that patient understood and agreed to proceed. An informed consent document was signed by the patient, witnessed by a nurse, and placed in the patient's chart. Additionally, other treatment options including modalities, medications, and physical therapy were reviewed with the patient. After review of previous anaesthesic history and IV conscious sedation the patient was deemed safe to proceed with todays procedure with IV conscious sedation as ASA class II designation. Safety time-out was performed to confirm patient ID, procedure to be performed and site of procedure. IV sedation was accomplished with a combination of 4mg of Versed administered by the RN after DO order, titrated to patient comfort during the course of the procedure while the patient remained responsive to all verbal commands. In the prone position, following sterile prep and drape of the cervical region, the C7/T1 translaminar space was identified fluoroscopically. The skin was anesthetized via a 25-gauge 1.5-inch needle with 1% lidocaine solution. At this point, a 25-gauge, 2.5-inch short bevel spinal needle was atraumatically introduced and advanced under fluoroscopic guidance into epidural space at the C7/T1 translaminar space. Depth was confirmed on lateral view. Radiological data, including multiple fluoroscopic views of the cervical spine, reveal a spinal needle at the C7/T1 translaminar space. Lateral views then show placement of the needle in the epidural space. Subsequent views show contrast material flowing superiorly and inferiorly in the epidural space. DSA fluorosco py with live contrast injection, once again, confirmed no vascular or intrathecal uptake. At this point, using loss of resistance technique with saline and air, the epidural space was entered. Following negative aspiration, injection of approximately 1.5 cc of Isovue-200 with live fluoroscopy in the AP view confirmed epidural flow in the epidural space without vascular or intrathecal uptake observed. Subsequently, a test dose of 1 cc of 1% lidocaine solution was injected and patient was observed for two minutes without signs or symptoms of complications, including abdominal pain, shortness of breath, bilateral upper or lower extremity weakness, nausea and vomiting, prior to steroid injection. At this point, 3cc or 30mg of dexamethasone was then injected without incident. The patient tolerated the procedure well without signs or symptoms of complications prior to transfer to the recovery area for further monitoring The patient was then transferred to the recovery area where they were observed for an appropriate period of time after the injection. The patient reported a VAS score of 6 prior to the procedure and a post-procedure VAS of 0 POST OP INSTRUCTIONS The patient was provided a Pain Log to continue to record the patient's response to the target-specific procedure prior to the patient's follow-up visit with the referring physician. Additionally, specific post-injection care instructions and a contact number to our office were provided if concerns arise regarding possible complications associated with the procedure are suspected.
== END 2022-07-11 10:35 | disposition home or self-care (01) ==
LOC: RAD 08:48
PROVIDERS: PCP Nurse Practitioner; Referring Provider Physical Medicine & Rehabilitation; Visit Provider Physical Medicine & Rehabilitation
DX: M48.02 Spinal stenosis, cervical region (principal); M50.13 Cervical disc disorder with radiculopathy, cervicothoracic region
CPT/HCPCS: 62321; 99152; J1100; J2250; J3490

== ENCOUNTER → 2022-08-16 11:48 | Outpatient (CLI) | payer MEDICARE, SELFPAY ==
[2022-08-16 12:40] LABS: Add Manual Diff / Slide Review NO; Basophils Absolute Auto 0 /uL (0-100); Basophils Percent Auto 0.2 % (0-2); Eosinophils Absolute Auto 0 /uL (0-450); Eosinophils Percent Auto 0.1 % (2-4); Hematocrit 43.7 % (36-46); Hemoglobin 14.5 g/dL (12.0-16.0); Lymphocytes Absolute Auto 2300 /uL (1100-4500); Lymphocytes Percent Auto 13.3 % (25-40); Mean Corpuscular HGB Conc 33.2 % (30-36); Mean Corpuscular Hemoglobin 29.5 PG (26-34); Mean Corpuscular Volume 88.7 fL (80-100); Monocytes Absolute Auto 1000 /uL (0-900); Monocytes Percent Auto 5.6 % (3-14); Neutrophils Absolute Auto 14300 /uL (1500-7000); Neutrophils Percent Auto 80.8 % (50-75); Platelet Count 240 X10^3/uL (150-400); Red Blood Cell Count 4.93 X10^6/uL (4.0-5.2); Red Cell Distribution Width 14.4 % (11.6-14.8); White Blood Cell Count 17.6 X10^3/uL (4.5-11.0)
== END ==
PROVIDERS: PCP Nurse Practitioner; Referring Provider Family Medicine; Visit Provider Family Medicine
DX: K62.5 Hemorrhage of anus and rectum (principal)
CPT/HCPCS: 36415; 85025

== ENCOUNTER → 2022-08-16 15:37 | Outpatient (CLI) | payer MEDICARE, SELFPAY ==
[2022-08-16 16:46] LABS: Alanine Aminotransferase 19 IU/L (<35); Albumin 4.2 g/dL (3.5-5.0); Albumin Globulin Ratio 1.2 (1.0-2.8); Alkaline Phosphatase 128 U/L (38-126); Aspartate Aminotransferase 22 IU/L (14-36); BUN Creatinine Ratio 23.3 (6-22); Bilirubin Total 0.7 mg/dL (0.2-1.3); Blood Urea Nitrogen 21 mg/dL (7-17); Calcium 8.9 mg/dL (8.4-10.2); Carbon Dioxide 27 mmol/L (22-32); Chloride 100 mmol/L (98-107); Estimated Glomerular Filt Rate > 60 mL/min (>60); Globulin 3.5 g/dL (1.7-4.1); Glucose 96 mg/dL (80-110); HEMOLYSIS < 15 (0-50); Potassium 4.6 mmol/L (3.4-5.1); Sodium 135 mmol/L (137-145); Total Protein 7.7 g/dL (6.3-8.2)
== END ==
PROVIDERS: PCP Nurse Practitioner; Referring Provider Family Medicine; Visit Provider Family Medicine
DX: R10.30 Lower abdominal pain, unspecified (principal); K62.5 Hemorrhage of anus and rectum
CPT/HCPCS: 36415; 80053; 85025

== ENCOUNTER → 2022-08-17 10:34 | Outpatient (CLI) | payer MEDICARE, SELFPAY ==
--- NOTE | 2022-08-17 10:35 | DI.CT.S_ITS ---
PROCEDURE: CT CHEST ABD PEL W CON INDICATIONS: lower quad abd pain. rectal bleeding. elev Wbc ? divertic TECHNIQUE: After the administration of oral and intravenous contrast, axial sections acquired from the supraclavicular neck to the pubic symphysis. Coronal and sagittal reformats were performed. For radiation dose reduction, the following was used: automated exposure control, adjustment of mA and/or kV according to patient size. COMPARISON: [facility], CT, ABDOMEN/PELVIS WITH CONTRAST, 10/04/2015, 9:53. FINDINGS: Image quality: Excellent. CHEST: Lower Neck: No enlarged lymph nodes. Axillae: No enlarged lymph nodes. Chest Wall: Left chest pacemaker. Lungs and Airways: Patchy micro nodularity present right lung apex and likely also medial segment of the right middle lobe however motion artifact is present in this area. Mild mosaic attenuation, nonspecific. No lobar consolidation. Few small pulmonary nodules present for example 3 mm nodule inferior right upper lobe (5/150). Pleura: No pneumothorax or pleural effusions. Heart:. No pericardial effusion. Multivessel coronary artery calcifications and/or stents. Thoracic Vessels: The aorta and pulmonary arteries demonstrate normal size. Mediastinum and Dedra: No enlarged lymph nodes. Esophagus: No wall thickening. ABDOMEN: Liver: Few small hypodensities too small to characterize present as before. Gallbladder: Unremarkable. Biliary ducts: Unremarkable. Pancreas: Unremarkable. Spleen: Unremarkable. Adrenal Glands: Unremarkable. Kidneys and Ureters: Unremarkable. Stomach and Bowel: No bowel obstruction. Wall thickening with adjacent fat stranding typical of a colitis involving the descending colon and splenic flexure. Few sigmoid predominant colonic diverticula present. Peritoneum: No free air or substantial free fluid. Vessels: Aorta and inferior vena cava are normal in size. PELVIS: Pelvic Organs: The uterus is not visualized and is presumed surgically absent. Bladder: Unremarkable. Bones: Multilevel degenerative change of the visualized spine. IMPRESSION: 1. Findings compatible with a colitis involving the splenic flexure and descending colon. Distribution of findings raises the possibility of ischemic colitis but other infectious or inflammatory colitides are also possible. Acute diverticulitis considered unlikely given extent of involvement and relative paucity of diverticula in the involved colon. 2. Patchy regions of micro nodularity within the right lung suspicious for an infectious/inflammatory etiology. Correlation for etiologies such is an infectious bronchiolitis or bronchopneumonia may be helpful. 3. A few small nonspecific pulmonary nodules also demonstrated. If the patient is considered low risk, imaging follow-up is not necessary per Fleischner society guidelines. If the patient is considered high risk, an optional 12 month follow-up chest CT could be obtained. Dictated by: Reji Godinez M.D. on 08/17/2022 at 14:49 Approved by: Reji Godinez M.D. on 08/17/2022 at 15:08
== END ==
PROVIDERS: PCP Nurse Practitioner; Referring Provider Family Medicine; Visit Provider Family Medicine
DX: K62.5 Hemorrhage of anus and rectum (principal); Z95.0 Presence of cardiac pacemaker; R91.8 Other nonspecific abnormal finding of lung field
CPT/HCPCS: 71260; 74177; Q9967

== ENCOUNTER → 2022-09-21 10:01 | Outpatient (CLI) | payer MEDICARE, SELFPAY ==
[2022-09-21 10:42] LABS: COVID19 -Nasal RAPID Negative (Negative)
== END ==
PROVIDERS: PCP Nurse Practitioner; Visit Provider Surgery
DX: Z01.812 Encounter for preprocedural laboratory examination (principal); Z20.822 Contact with and (suspected) exposure to COVID-19
CPT/HCPCS: 87635; C9803

== ENCOUNTER 2022-09-22 06:37 | Day surgery (SDC) | payer MEDICARE, SELFPAY ==
--- NOTE | 2022-09-22 | PATH_ITS ---
[facility] Accession Number: [id number] No. of containers..04 Tissue . 01 Material submitted: . PART A: hepatic flexure - HEPATIC FLEXURE PART B: colon - TRANSVERSE COLON X2 PART C: colon - DESCENDING COLON PART D: colon - RANDOM . 01 Diagnosis: A. Hepatic Flexure, Biopsy: Tubular adenoma. . B. Transverse Colon, Polyp x2, Biopsy: Tubular adenoma in five of six fragments. . C. Descending Colon, Biopsy: Tubular adenoma. . D. Random Colon, Biopsies: Mildly active colitis. Please see comment. Negative for granulomas, dysplasia, and malignancy. MRV 09/28/2022 1451 Local . 01 Comment: D. The random colon biopsies show patchy mild neutrophilic cryptitis without associated features of chronic inflammation. The background colonic mucosa shows evenly spaced crypts without branching or increased lymphoplasmacytosis. No obvious viral cytopathic effects or parasitic organisms are identified. The differential diagnosis includes bowel preparation effects, infection, medication-related mucosal injury, diverticular disease-associated colitis, and idiopathic inflammatory bowel disease. . 01 Electronically signed: . Suzanne Camilo MD, Pathologist NPI- [id number] . 01 Gross description: . Part A: HEPATIC FLEXURE: Received in formalin are 2 fragment(s) of prieto, soft tissue measuring 0.3 x 0.1 x 0.1 cm to 0.3 x 0.1 x 0.1 cm submitted entirely in 1 cassette(s) Part B: TRANSVERSE COLON X2: Received in formalin are multiple fragment(s) of prieto, soft tissue measuring 0.7 x 0.2 x 0.1 cm in aggregate submitted entirely in 1 cassette(s) Part C: DESCENDING COLON: Received in formalin is 1 fragment(s) of prieto, soft tissue measuring 0.5 x 0.2 x 0.1 cm submitted entirely in 1 cassette(s) Part D: RANDOM: Received in formalin are 2 fragment(s) of prieto, soft tissue measuring 0.5 x 0.1 x 0.1 cm to 0.3 x 0.2 x 0.1 cm submitted entirely in 1 cassette(s) /CPE 09/23/2022 1006 Local . 01 Pathologist provided ICD-10: D12.3, D12.4 . 01 CPT . 575535, 686174, 347438, 722181 Specimen Comment: A courtesy copy of this report has been sent to [facility] Pathology Performed at: 01 [facility] [address], [place], [place] [id number] MD Jose Rowland MD Phone: [phone]
[2022-09-22 07:27] VITALS: BP 143/88; PULSE 89; RESP 16; TEMP 36.8; O2SAT 98
[2022-09-22] MEDS: LACTATED RINGERS 1,000 ML 84 ML IV (07:39)
--- NOTE | 2022-09-22 07:46 | PM.PREOP ---
Pre-operative Note Interval Note History & Physical reviewed/Exam performed by Physician: Yes Changes to H&P: No
[2022-09-22 08:54] VITALS: BP 106/67; PULSE 70; RESP 16; TEMP 36.3; O2SAT 100
[2022-09-22 08:59] VITALS: BP 106/67; PULSE 70; RESP 16; O2SAT 100
[2022-09-22 09:04] VITALS: BP 101/67; PULSE 75; RESP 16; O2SAT 100
[2022-09-22 09:10] VITALS: BP 142/67; PULSE 70; RESP 16; O2SAT 98
[2022-09-22 09:20] VITALS: BP 132/66; PULSE 70; RESP 16; O2SAT 98
--- NOTE | 2022-09-22 10:26 | PM.OP.COLON ---
Procedure & Clinicians Study performed: Colonoscopy and biopsy Same procedure as scheduled: Yes Indications: Finding of colitis on CT scan. bleeding per rectum Surgeon: Carmen Donnelly Procedure Notes Procedure in detail: Patient was taken to the endoscopy suite and placed in a left lateral decubitus position. A time-out was performed. Conscious sedation was induced with the help of an anesthesia provider. Digital rectal exam was performed there were no masses or strictures. The scope was advanced into the anal canal and advanced through to the cecum. Abdominal pressure was required to reach the cecum. Photograph was taken of the appendiceal orifice. The scope was then withdrawn slowly. The withdrawal time was 35 minutes in total including biopsies. At the hepatic flexure 1 small polyp was seen and biopsied with forceps. As the transverse colon was entered there were 2 additional polyps which were seen and biopsied and sent together in 1 specimen jar. In the descending colon there was a 3rd small polyp. Finally I readvanced the scope up to what I believed to be the splenic flexure, and though the appearance of the mucosa at this location was normal I took some random biopsies. There were a few scattered diverticula though not many in the sigmoid colon Specimen(s): other (1. Hepatic flexure small polyp x1 2. Transverse colon small polyps x2 3. Descending colon polyp x1 4. Random colon biopsies.) Complications: none Impression: We will follow up the pathology of the polyps. And no obvious etiology for the finding of colitis or bleeding at this time. Probably the follow-up recommendation will be in 5 years.
== END 2022-09-22 10:22 | disposition home or self-care (01) ==
PROVIDERS: PCP Nurse Practitioner; Referring Provider Surgery; Visit Provider Surgery
PROC: 0DJD8ZZ Inspection of Lower Intestinal Tract, Via Natural or Artificial Opening Endoscopic (ICD-10-PCS; CPT 45378; principal; 2022-09-22 07:45)
DX: K62.5 Hemorrhage of anus and rectum (principal); K57.30 Diverticulosis of large intestine without perforation or abscess without bleeding; D12.3 Benign neoplasm of transverse colon; D12.4 Benign neoplasm of descending colon; K52.9 Noninfective gastroenteritis and colitis, unspecified
CPT/HCPCS: 45380; J2250; J2704; J3010

== ENCOUNTER 2022-10-12 09:08 | Outpatient (CLI) | payer MEDICARE, SELFPAY ==
[2022-10-12] VITALS (9 sets, daily range): BP systolic 135–171; BP diastolic 63–93; PULSE 71–736; RESP 16–22; TEMP 36.1; O2SAT 94–99
--- NOTE | 2022-10-12 09:10 | DI.RAD.S_ITS ---
PROCEDURE: PAIN C/T FACET INJ/BLK 1ST L INDICATIONS: SPINAL STENOSIS COMPARISON: None. FINDINGS: Fluoroscopic spot filming was performed during facet joint injection. IMPRESSION: Fluoroscopic images of the neck were performed for facet joint injection. Note that the provided fluoroscopic images cannot confirm level. Dictated by: Roni Hector M.D. on 10/12/2022 at 12:31 Approved by: Roni Hector M.D. on 10/12/2022 at 12:33
[2022-10-12] MEDS: MIDAZOLAM 2 MG/2 ML VIAL IV (10:20)
[2022-10-12] MEDS: DEXAMETHASONE 10 MG/ML VIAL INJ (10:24)
[2022-10-12] MEDS: IOPAMIDOL 15 ML VIAL 3 ML INJ (10:24)
[2022-10-12] MEDS: BUPIVACAINE 0.5% (PF) 10 ML VIAL 5 ML SUBCUT (10:25)
--- NOTE | 2022-10-12 10:36 | P.PCN_ITS ---
Date/Time/Diagnoses Date of procedure: 10/12/22 Time of procedure: 10:36 Pre-procedure diagnosis: 1. FACET ARTHROPATHY 2. AXIAL NECK PAIN Post-procedure diagnosis: same Procedure Notes Procedure: 1. FLUOROSCOPICALLY GUIDED, CONTRAST-CONTROLLED LEFT C2/3 FACET JOINT INJECTIONS WITH CONSCIOUS SEDATION. Indications: Nayeli is referred by TAYLOR Lopez for treatment of Axial Neck Pain Physician: Harsha Faulkner Total Fluoroscopy time (seconds): 11 Total sedation minutes: 13 Complications: none Procedure in detail & Post-procedure care: DESCRIPTION OF PROCEDURE Fluoroscopically guided, contrast-controlled left C2/3 facet joint injections with conscious sedation. Following review of allergy and review of potential side effects and complications, including, but not necessarily limited to, infection, allergic reaction, local tissue breakdown, stroke, temporary or permanent nerve injury and paralysis, the patient indicated that the patient understood and agreed to proceed. An informed consent document was signed by the patient, witnessed by a nurse, and placed in the patient's chart. Additionally, other treatment options including medications, modalities, and physical therapy were reviewed with the patient. After review of previous anaesthesic history and IV conscious sedation the patient was deemed safe to proceed with today?s procedure with IV conscious sedation as ASA class II designation. Safety time-out was performed to confirm patient ID, procedure to be performed and site of procedure. IV sedation was accomplished with a combination of 2mg of Versed was administered by the RN aft er DO order, titrated to patient comfort during the course of the procedure while the patient remained responsive to all verbal commands In the prone position, following sterile prep and drape of the cervical spine region, the posterior aspect of the left C2/3 facet joints were identified fluoroscopically. The skin was anesthetized via a 25-gauge 1.5-inch needle with 1% lidocaine solution into the corresponding facet joints. At this point, a 25- gauge 2.5-inch spinal needle was atraumatically introduced and advanced under fluoroscopic guidance into the corresponding facet joints. Following negative aspiration, injections of approximately 0.2-cc of Isovue 200 confirmed interarticular placement without vascular uptake. At this point, a total of 1cc including 0.5 cc or 5mg of dexamethasone combined with 0.5cc of 1% lidocaine solution was injected without complication into each of the corresponding facet joints. The patient tolerated the procedure well without signs or symptoms of complications prior to transfer to the recovery area continued monitoring without incident. The patient was then transferred to the recovery area where they were observed for an appropriate period of time after the injection. The patient reported a VAS score of 7 prior to the procedure and a post- procedure VAS of 0. POST OP INSTRUCTIONS They were provided a Pain Log to continue to record their response to the target-specific procedure prior to their follow-up visit with their referring physician. Additionally, specific post-injection care instructions and a contact number to our office were provided if concerns arise regarding possible complications associated with the procedure are suspected.
== END 2022-10-12 11:01 | disposition home or self-care (01) ==
LOC: RAD 09:09
PROVIDERS: PCP Nurse Practitioner; Referring Provider Physical Medicine & Rehabilitation; Visit Provider Physical Medicine & Rehabilitation
DX: M47.812 Spondylosis without myelopathy or radiculopathy, cervical region (principal)
CPT/HCPCS: 64490; 99152; J1100; J2250

== ENCOUNTER → 2022-11-02 08:58 | Outpatient (CLI) | payer MEDICARE, SELFPAY ==
--- NOTE | 2022-11-03 02:20 | DI.NM.S_ITS ---
DATE OF SERVICE: 11/02/2022 PROCEDURE PERFORMED: Pharmacologic vasodilator stress and rest myocardial perfusion imaging study with gating to assess ejection fraction and wall motion. ORDERING PROVIDER: JULIETA Olea INDICATIONS: The patient is a 72-year-old female with refractory atrial tachycardia requiring AV shawn ablation and pacemaker placement, now with atypical chest discomfort. PHARMACOLOGIC STRESS: Per protocol, 0.4 mg of regadenoson was infused with minimal change in heart rate and blood pressure but with mild dyspnea but no chest discomfort. Her resting ECG shows probable sinus rhythm with an A-sensed and V-paced rhythm with occasional PACs. Ventricular pacing precludes ST-segment analysis but there are no significant ST-segment shifts or other arrhythmias. Per protocol, 26.6 millicuries of technetium-99m Myoview was injected and she was imaged 10 minutes later using a gated SPECT acquisition protocol. Earlier in the day while at rest, she had been injected with 11.5 millicuries of technetium-99m Myoview and was imaged 20 minutes later, again using a gated SPECT acquisition protocol. FINDINGS: 1. Raw data: There is fairly good myocardial tracer uptake although moderate breast shadows are noted which could influence the interpretation. The lung/heart ratio is normal at 0.30 with a normal TID ratio of 1.14. 2. Quantitated gated SPECT: Post-stress ejection fraction is estimated at 71% without any focal abnormality and specifically, the anterior wall appears to have fairly good contractility. The resting ejection fraction is estimated at 82% with a normal resting end-diastolic volume of 76 mL. 3. Myocardial perfusion imaging: Post-stress supine images show a fairly normal myocardial perfusion pattern although with slightly diminished tracer activity in the distal anterior wall and apex in a pattern that would be consistent with breast attenuation artifact. This defect improves, although does not completely resolve on the prone images. The resting images show a more profound defect in the distal anterior wall and apex, but there are no areas of improvement. IMPRESSION: 1. Probable normal myocardial perfusion study. 2. Mild, fixed perfusion defect in the distal anterior wall and apex most that likely reflects breast attenuation artifact although previous myocardial infarction cannot be entirely excluded. Alternatively, this could be a pacemaker related artifact. There is no evidence for any myocardial ischemia. 3. Normal left ventricular systolic function without focal wall motion abnormality. 4. No angina with pharmacologic stress. The presence of ventricular pacing precluded ST-segment analysis. She appeared to be in a sinus rhythm with appropriate atrial sensing and ventricular pacing with occasional PACs. Nayeli Fenton - KRISTEN/lamar/adryan doc#: [id number]/job#: [id number] dd: 11/02/2022 16:50:00 dt: 11/03/2022 02:10:00 DICTATING MD/COPIES TO: Harsha Del Castillo MD; JULIETA Olea COPIES MNE: SASHA;
== END ==
PROVIDERS: PCP Nurse Practitioner; Referring Provider Physician Assistant Medical; Visit Provider Physician Assistant Medical
DX: R07.89 Other chest pain (principal); Z95.0 Presence of cardiac pacemaker
CPT/HCPCS: 78452; 93017; A9502; J2785

== ENCOUNTER → 2023-04-06 12:50 | Outpatient (CLI) | payer MEDICARE, SELFPAY ==
[2023-04-06 15:03] LABS: BUN Creatinine Ratio 17.7 (6-22); Blood Urea Nitrogen 14 mg/dL (7-17); Carbon Dioxide 26 mmol/L (22-32); Chloride 102 mmol/L (98-107); Estimated Glomerular Filt Rate > 60 mL/min (>60); Glucose 82 mg/dL (80-110); HEMOLYSIS < 15 (0-50); Sodium 138 mmol/L (137-145)
== END ==
PROVIDERS: PCP Family Medicine; Referring Provider Physician Assistant Medical; Visit Provider Physician Assistant Medical
DX: I47.1 Supraventricular tachycardia (principal)
CPT/HCPCS: 36415; 80048

== ENCOUNTER → 2023-06-19 10:14 | Outpatient (CLI) | payer MEDICARE, SELFPAY ==
[2023-06-19 11:20] LABS: Add Manual Diff / Slide Review NO; Basophils Absolute Auto 0 /uL (0-100); Basophils Percent Auto 0.8 % (0-2); Eosinophils Absolute Auto 100 /uL (0-450); Eosinophils Percent Auto 1.2 % (2-4); Hematocrit 40.4 % (36-46); Hemoglobin 13.8 g/dL (12.0-16.0); Lymphocytes Absolute Auto 1700 /uL (1100-4500); Lymphocytes Percent Auto 30.7 % (25-40); Mean Corpuscular Hemoglobin 30.9 PG (26-34); Mean Corpuscular Volume 90.8 fL (80-100); Monocytes Absolute Auto 300 /uL (0-900); Monocytes Percent Auto 5.6 % (3-14); Neutrophils Absolute Auto 3500 /uL (1500-7000); Neutrophils Percent Auto 61.7 % (50-75); Platelet Count 202 X10^3/uL (150-400); Red Blood Cell Count 4.45 X10^6/uL (4.0-5.2); Red Cell Distribution Width 13.1 % (11.6-14.8); White Blood Cell Count 5.6 X10^3/uL (4.5-11.0)
[2023-06-19 11:39] LABS: Alanine Aminotransferase 15 IU/L (<35); Albumin 4.1 g/dL (3.5-5.0); Albumin Globulin Ratio 1.4 (1.0-2.8); Alkaline Phosphatase 68 U/L (38-126); Aspartate Aminotransferase 23 IU/L (14-36); BUN Creatinine Ratio 19.1 (6-22); Bilirubin Total 0.4 mg/dL (0.2-1.3); Blood Urea Nitrogen 13 mg/dL (7-17); Calcium 9.3 mg/dL (8.4-10.2); Carbon Dioxide 24 mmol/L (22-32); Chloride 106 mmol/L (98-107); Estimated Glomerular Filt Rate > 60 mL/min (>60); Glucose 94 mg/dL (80-110); HEMOLYSIS < 15 (0-50); Lipase 31 U/L (23-300); Potassium 4.1 mmol/L (3.4-5.1); Sodium 137 mmol/L (137-145); Total Protein 7.1 g/dL (6.3-8.2)
[2023-06-19 12:27] LABS: TSH w/ Reflex to FT4 1.51 uIU/mL (0.47-4.68)
== END ==
PROVIDERS: PCP Physician Assistant; Referring Provider Family Medicine; Visit Provider Family Medicine
DX: M54.9 Dorsalgia, unspecified (principal); E66.3 Overweight; Z68.28 Body mass index [BMI] 28.0-28.9, adult; Z86.010 Personal history of colon polyps; K52.9 Noninfective gastroenteritis and colitis, unspecified; K59.00 Constipation, unspecified; L65.9 Nonscarring hair loss, unspecified; R10.9 Unspecified abdominal pain; K82.8 Other specified diseases of gallbladder
CPT/HCPCS: 80053; 83690; 84443; 85025

== ENCOUNTER → 2023-06-21 11:20 | Outpatient (CLI) | payer MEDICARE, SELFPAY ==
--- NOTE | 2023-06-21 | DI.RAD.S_ITS ---
PROCEDURE: XR ABDOMEN 3V INDICATIONS: constipation TECHNIQUE: One view chest and two views of the abdomen were acquired. COMPARISON: [facility], CT, CT CHEST ABD PEL W CON, 08/17/2022, 12:08. FINDINGS: Surgical changes and devices: None. Chest: Lungs are clear. Heart size is normal. No pleural effusions. No pneumoperitoneum. Note is made of a cardiac pacemaker. Abdomen: Bowel gas pattern is normal. There is a large amount of stool in colon. No suspicious calcifications. Visualized solid organ contours appear normal. Bones: Lower cervical spine fusion. No suspicious bony lesions. IMPRESSION: A large amount of stool in colon. Dictated by: Yvette Hollins M.D. on 06/21/2023 at 12:47 Approved by: Yvette Hollins M.D. on 06/21/2023 at 12:48
== END ==
PROVIDERS: PCP Family Medicine; Referring Provider Internal Medicine Gastroenterology; Visit Provider Internal Medicine Gastroenterology
DX: K59.00 Constipation, unspecified (principal); K52.9 Noninfective gastroenteritis and colitis, unspecified; M54.9 Dorsalgia, unspecified; E66.3 Overweight; Z68.28 Body mass index [BMI] 28.0-28.9, adult; Z86.010 Personal history of colon polyps
CPT/HCPCS: 74021; 99152

== ENCOUNTER → 2023-07-04 11:09 | Outpatient (CLI) | payer MEDICARE, SELFPAY ==
--- NOTE | 2023-07-04 11:10 | DI.US.S_ITS ---
PROCEDURE: US ABDOMEN LIMITED INDICATIONS: UPPER ABD PAIN THAT RADIATES TO BACK. POSTPRANDIAL NAUSEA TECHNIQUE: Real-time scanning was performed of the abdominal and retroperitoneal organs, with image documentation. COMPARISON: None. FINDINGS: Liver: The liver measures 13 cm in length and demonstrates increased echogenicity. Gallbladder: The gallbladder wall measures 2.9 mm in diameter. A 1.4 cm stone is present within the gallbladder fundus. No pericholecystic fluid or sonographic Taylor sign. Biliary ducts: Intrahepatic bile ducts are non-dilated. Extrahepatic bile duct caliber measures 4.8 mm. Normal is 6-7 mm or less in diameter, or 10 mm or less post-cholecystectomy. Pancreas: Visualized portions of the pancreas are sonographically normal. The pancreatic tail is not visualized. IMPRESSION: 1. Cholelithiasis. No findings to suggest choledocholithiasis or acute cholecystitis. 2. Increased hepatic echogenicity noted likely related to fatty infiltration of the liver but other sources of hepatocellular disease cannot be excluded. Dictated by: Kalpana Brantley M.D. on 07/04/2023 at 14:01 Approved by: Kalpana Brantley M.D. on 07/04/2023 at 14:02
== END ==
PROVIDERS: PCP Family Medicine; Referring Provider Internal Medicine Gastroenterology; Visit Provider Internal Medicine Gastroenterology
DX: K59.00 Constipation, unspecified (principal); K80.20 Calculus of gallbladder without cholecystitis without obstruction; R10.9 Unspecified abdominal pain; M54.9 Dorsalgia, unspecified; K55.9 Vascular disorder of intestine, unspecified
CPT/HCPCS: 76705

== ENCOUNTER 2023-08-14 11:55 | Day surgery (SDC) | payer MEDICARE, SELFPAY ==
[2023-08-08 14:11] VITALS: BMI 28.5
[2023-08-14] VITALS (16 sets, daily range): BP systolic 137–173; BP diastolic 62–75; PULSE 70; RESP 12–22; TEMP 36.2–36.5; O2SAT 94–100; BMI 27.5
--- NOTE | 2023-08-14 | PATH_ITS ---
[facility] Accession Number: [id number] No. of containers..01 Tissue . 01 Material submitted: . gallbladder - GALLBLADDER . 01 Diagnosis: Gallbladder, Cholecystectomy: Mild chronic calculous cholecystitis. Negative for dysplasia and malignancy. MRV 08/24/2023 1451 Local . 01 Electronically signed: . Sheree Allison MD, Pathologist NPI- [id number] . 01 Gross description: . The specimen is received in formalin labeled with the patient's name, , and gallbladder, consists of a disrupted gallbladder measuring 6.2 x 2.7 x 1.5 cm with a full thickness defect measuring 0.3 cm in greatest dimension. The cystic duct margin is inked blue, and no pericystic lymph node is identified. The lumen contains green viscous bile with a calculus grossly obstructing the cystic duct measuring 1.0 cm in greatest dimension. The mucosa is green and velvety with no yellow discoloration, polyps, or lesions identified. The lund average 0.2 cm thick. Medical Secretary Receptionist sections to include cystic duct margin and full thickness sections are submitted in cassette A1. ([id number]) /MRV 08/16/2023 1518 Local . 01 Pathologist provided ICD-10: K81.9 . 01 CPT . 807022 Specimen Comment: A courtesy copy of this report has been sent to [phone] Performed at: 01 [facility] [address] [place] [address], [place], [place] [id number] MD Jose Rowland MD Phone: [phone]
[2023-08-14] MEDS: ACETAMINOPHEN 325 MG TABLET 975 MG PO (12:42)
[2023-08-14] MEDS: LACTATED RINGERS 1,000 ML 42 ML IV (12:44)
--- NOTE | 2023-08-14 13:13 | PM.PREOP ---
Pre-operative Note COVID-19 COVID-19 status: Not tested Interval Note History & Physical reviewed/Exam performed by Physician: Yes Changes to H&P: No ASA Class (for procedural sedation): II
[2023-08-14] MEDS: CEFAZOLIN 2 GM/100 ML PREMIX 100 ML IV (13:45)
--- NOTE | 2023-08-14 13:48 | SUR.OPER ---
Supine on padded OR bed, head on pillow, arms secured on padded arm boards at <90 degrees abduction, legs uncrossed, safety belt at thigh, tape over blanket over lower legs.
[2023-08-14] MEDS: BUPIVACAINE 0.5% (PF) 30 ML, EPINEPHrine 0.15 MG INJ (14:08)
--- NOTE | 2023-08-14 14:48 | PM.OP.1 ---
Operative Date/Time/Diagnoses Date of procedure: 08/14/23 Time of procedure: 14:48 Pre-op diagnosis: Symptomatic cholelithiasis Post-op diagnosis: same Procedure & Clinicians Procedure: Laparoscopic cholecystectomy Same procedure as scheduled: Yes Surgeon: Roman Coto Anesthesia Type: General Operative Notes Procedure in detail: The patient was given preoperative antibiotics. The patient was brought to the operating room and placed on the table in the supine position. General endotracheal anesthesia was induced. The abdomen was prepped and draped. A time-out was performed. We made a 1 cm infraumbilical incision. We dissected down to the fascia of the anterior sheath. We scored the fascia in the midline with cautery. A Angeles clamp was used to grasp the fascia to elevate it. We pierced the peritoneum with a Peon clamp. The Ld port was placed and the abdomen was insufflated to 15 mmHg. A 5 mm 30 degree laparoscopic was inserted. There was no evidence of any injury from the entry. Next, we placed 5 mm ports in the subxiphoid position and right upper quadrant at the midclavicular line and anterior axillary line. The patient was then positioned in reverse Trendelenburg and the table was tilted to the left. The gallbladder was grasped at the dome and retracted cephalad. We then dissected the cystic structures with a combination of hook cautery and blunt dissection. We obtained a critical view. We placed clips on the cystic duct and artery and divided the cystic duct and artery sharply between the clips. The gallbladder was then dissected off the liver and placed in a specimen retrieval bag. We irrigated the right upper quadrant and all the aspirate returned clear. We then removed the 5 mm ports under direct vision we removed the Ld port. We then injected some local into the fascia and closed the fascia with 2 interrupted 0 Vicryl sutures. The skin incisions were closed with 4-0 Monocryl and Steri-Strips were applied. Band-Aids were applied over the Steri-Strips. EBL: 20 mL Specimen: Gallbladder and contents Post-operative Condition: stable Disposition: PACU
[2023-08-14] MEDS: fentaNYL 100 MCG/2 ML INJ IV ×4 (14:51→15:14)
[2023-08-14] MEDS: OXYCODONE/ACETAMINOPHEN 5/325 TABLET 1 TAB PO (15:10)
[2023-08-14] MEDS: HYDROMORPHONE 1 MG INJ IV ×4 (15:22→15:41)
== END 2023-08-14 16:21 | disposition home or self-care (01) ==
PROVIDERS: PCP Family Medicine; Referring Provider Surgery; Visit Provider Surgery
PROC: 0FT44ZZ Resection of Gallbladder, Percutaneous Endoscopic Approach (ICD-10-PCS; CPT 47562; principal; 2023-08-14 13:15)
DX: K80.10 Calculus of gallbladder with chronic cholecystitis without obstruction (principal)
CPT/HCPCS: 47562; J0171; J0690; J1100; J1170; J2405; J2704; J3010; J3490

== ENCOUNTER → 2023-11-15 13:55 | Outpatient (CLI) | payer MEDICARE, SELFPAY ==
--- NOTE | 2023-11-15 13:57 | DI.RAD.S_ITS ---
PROCEDURE: XR THORACIC SPINE 3V INDICATIONS: CN 11/14, xray TECHNIQUE: 3 views of the thoracic spine were acquired. COMPARISON: None. FINDINGS: Bones: No fractures or dislocations. No suspicious bony lesions. 12 pairs of ribs are noted, and appear intact where visualized. Partially visualized ACDF hardware. There is multilevel intervertebral disc height loss with degenerative endplate changes and marginal spurring. Soft tissues: No paravertebral stripe thickening. Left chest wall pacemaker is partially visualized. IMPRESSION: Mild degenerative changes of the thoracic spine. No acute osseous abnormalities. Dictated by: Hector Farr M.D. on 11/15/2023 at 16:11 Approved by: Hector Farr M.D. on 11/15/2023 at 16:13
== END ==
LOC: RAD 13:57
PROVIDERS: PCP Nurse Practitioner; Referring Provider Physician Assistant; Visit Provider Physician Assistant
DX: M47.814 Spondylosis without myelopathy or radiculopathy, thoracic region (principal); M54.6 Pain in thoracic spine
CPT/HCPCS: 72072

== ENCOUNTER → 2023-11-16 11:35 | Outpatient (CLI) | payer MEDICARE, SELFPAY ==
--- NOTE | 2023-11-16 11:38 | DI.CT.S_ITS ---
PROCEDURE: CT CHEST WO CON INDICATIONS: f/u on nodules, chronic sob TECHNIQUE: Noncontrast 5 mm thick sections acquired from the pulmonary apices to the posterior costophrenic angles. 1 mm lung window, 5 mm thick coronal and sagittal and 7 mm axial MIP reformats were then acquired. For radiation dose reduction, the following was used: automated exposure control, adjustment of mA and/or kV according to patient size. COMPARISON: [facility], CT, CT CHEST ABD PEL W CON, 08/17/2022, 12:08. FINDINGS: Image quality: Diagnostic. Lower Neck: No enlarged lymph nodes. Thyroid: No thyroid nodules which require sonographic follow up, per consensus guidelines. Axillae: No enlarged lymph nodes. Chest Wall: Unremarkable. Bones: No suspicious osseous lesion. ACDF. Lungs and Pleura: No pneumothorax or pleural effusions. Tree-in-bud nodular opacities in the right upper lobe, (3/42), unchanged. Similar tree-in-bud nodular opacity in the right upper lobe lateral aspect, (3/102), slightly increased. A few pulmonary nodules measuring 0.4 cm or less. Right upper lobe 0.3 cm, (3/122) unchanged. Central airways are clear. No consolidation. Subtle mosaic attenuation. Heart: Left pacemaker. Heart size is normal. No pericardial effusion. Thoracic Vessels: The aorta and pulmonary arteries demonstrate normal size. Mediastinum and Dedra: No enlarged lymph nodes. Esophagus: No wall thickening. No hiatal hernia. Upper Abdomen: Visualized upper abdomen solid organs and bowel loops appear normal. IMPRESSION: 1. A few areas of tree-in-bud nodular opacity. This appears slightly increased in the right upper lobe. This is most likely due to mild bronchitis. 2. No consolidation. No pleural effusion. 3. No enlarged lymph nodes. Dictated by: Misael Bach M.D. on 11/16/2023 at 14:36 Approved by: Misael Bach M.D. on 11/16/2023 at 14:43
== END ==
PROVIDERS: PCP Nurse Practitioner; Referring Provider Physician Assistant; Visit Provider Physician Assistant
DX: R91.8 Other nonspecific abnormal finding of lung field (principal); Z98.1 Arthrodesis status
CPT/HCPCS: 71250

== ENCOUNTER → 2024-02-21 12:42 | Outpatient (CLI) | payer MEDICARE, SELFPAY ==
[2024-02-21 13:25] LABS: Alanine Aminotransferase 16 IU/L (<35); Albumin 4.4 g/dL (3.5-5.0); Albumin Globulin Ratio 1.2 (1.0-2.8); Alkaline Phosphatase 84 U/L (38-126); Aspartate Aminotransferase 25 IU/L (14-36); BUN Creatinine Ratio 21.5 (6-22); Bilirubin Total 0.6 mg/dL (0.2-1.3); Blood Urea Nitrogen 17 mg/dL (7-17); Carbon Dioxide 24 mmol/L (22-32); Chloride 107 mmol/L (98-107); Cholesterol 286 mg/dL (140-199); Estimated Glomerular Filt Rate > 60 mL/min (>60); Globulin 3.6 g/dL (1.7-4.1); Glucose 135 mg/dL (80-110); HDL Cholesterol 64 mg/dL (40-60); HEMOLYSIS 22 (0-50); LDL Cholesterol Calculated 183 mg/dL (<100); Potassium 4.2 mmol/L (3.4-5.1); Sodium 139 mmol/L (137-145); Triglycerides 194 mg/dL (35-150)
[2024-02-21 15:26] LABS: Creatinine Urine Random 27.51 mg/dL
[2024-02-21 15:28] LABS: Microalbumin Urine Random < 0.6 mg/dL (0-1.6)
[2024-02-21 21:26] LABS: Free T3, Triiodothyronine Free 2.98 pg/mL (2.77-5.27); Free T4, Direct Thyroxine 1.12 ng/dL (0.78-2.19)
[2024-02-21 21:31] LABS: Thyroid Stimulating Hormone 1.15 uIU/mL (0.47-4.68)
== END ==
PROVIDERS: PCP Nurse Practitioner; Referring Provider Physician Assistant; Visit Provider Physician Assistant
DX: I47.19 Other supraventricular tachycardia (principal); E78.2 Mixed hyperlipidemia; I44.2 Atrioventricular block, complete; L65.9 Nonscarring hair loss, unspecified; F41.8 Other specified anxiety disorders; E03.9 Hypothyroidism, unspecified; R91.1 Solitary pulmonary nodule; K55.9 Vascular disorder of intestine, unspecified; E66.9 Obesity, unspecified; Z95.0 Presence of cardiac pacemaker; I97.190 Other postprocedural cardiac functional disturbances following cardiac surgery
CPT/HCPCS: 36415; 80053; 80061; 82043; 82570; 84439; 84443; 84481

== ENCOUNTER 2024-04-10 10:53 | Observation (INO) | payer MEDICARE, SELFPAY ==
[2024-04-10] VITALS (21 sets, daily range): BP systolic 125–219; BP diastolic 60–95; PULSE 68–77; RESP 11–25; TEMP 36.6–36.8; O2SAT 93–99; BMI 29.2
--- NOTE | 2024-04-10 11:06 | DI.RAD.S_ITS ---
PROCEDURE: XR CHEST 1V INDICATIONS: Shortness of breath TECHNIQUE: One view of the chest was acquired. COMPARISON: [facility], CR, XR CHEST 1V, 04/11/2021, 10:13. FINDINGS: Surgical changes and devices: Pacemaker Lungs and pleura: Lungs are clear. No pleural effusions or pneumothorax. Mediastinum: Mediastinal contours appear normal. Heart size is normal. Bones and chest wall: No suspicious bony lesions. Overlying soft tissues appear unremarkable. IMPRESSION: No acute cardiopulmonary abnormality is seen. Dictated by: Wilian Stuart M.D. on 04/10/2024 at 12:13 Approved by: Wilian Stuart M.D. on 04/10/2024 at 12:14
--- NOTE | 2024-04-10 11:11 | EKG_ITS ---
[address] [address] [address] [address] Test Date: 2024-04-10 Pat Name: Nayeli Fenton Department: Room: Gender: Female Varnish Maker: HALLIE : 1950 Requested By: Order Number: [id number] Reading MD: John Mckeon MD Measurements Intervals Willard Rate: 70 P: SD: QRS: -72 QRSD: 170 T: 81 QT: 474 QTc: 511 Interpretive Statements Ventricular-paced rhythm Electronically Signed On 04-10-2024 12:07:23 PDT by John Mckeon MD
[2024-04-10 11:34] LABS: Add Manual Diff / Slide Review NO; Basophils Absolute Auto 100 /uL (0-100); Basophils Percent Auto 1.1 % (0-2); Eosinophils Absolute Auto 100 /uL (0-450); Hematocrit 43.5 % (36-46); Hemoglobin 14.8 g/dL (12.0-16.0); Lymphocytes Absolute Auto 2500 /uL (1100-4500); Lymphocytes Percent Auto 30.9 % (25-40); Mean Corpuscular Hemoglobin 31.6 PG (26-34); Monocytes Absolute Auto 500 /uL (0-900); Monocytes Percent Auto 6.2 % (3-14); Neutrophils Absolute Auto 4900 /uL (1500-7000); Neutrophils Percent Auto 60.8 % (50-75); Platelet Count 238 X10^3/uL (150-400); Red Blood Cell Count 4.68 X10^6/uL (4.0-5.2); Red Cell Distribution Width 12.8 % (11.6-14.8); White Blood Cell Count 8.1 X10^3/uL (4.5-11.0)
[2024-04-10 11:36] LABS: Creatine Kinase 37 U/L (30-135)
[2024-04-10 11:49] LABS: Troponin I 0.021 ng/mL (0.01-0.034)
[2024-04-10 11:50] LABS: Alanine Aminotransferase 21 IU/L (<35); Albumin 4.7 g/dL (3.5-5.0); Albumin Globulin Ratio 1.5 (1.0-2.8); Alkaline Phosphatase 74 U/L (38-126); Aspartate Aminotransferase 32 IU/L (14-36); Bilirubin Total 0.6 mg/dL (0.2-1.3); Blood Urea Nitrogen 17 mg/dL (7-17); Calcium 9.8 mg/dL (8.4-10.2); Carbon Dioxide 17 mmol/L (22-32); Chloride 109 mmol/L (98-107); Estimated Glomerular Filt Rate > 60 mL/min (>60); Globulin 3.2 g/dL (1.7-4.1); Glucose 134 mg/dL (80-110); HEMOLYSIS 55 (0-50); Potassium 4.2 mmol/L (3.4-5.1); Sodium 140 mmol/L (137-145); Total Protein 7.9 g/dL (6.3-8.2)
--- NOTE | 2024-04-10 11:51 | ED.GENADULT ---
HPI - General Adult General Chief complaint: Shortness of Breath/Dyspnea Stated complaint: back pain, sob t-3 Time Seen by Provider: 04/10/24 11:09 Source: patient Mode of arrival: Ambulatory History of Present Illness HPI narrative: Patient is a 73-year-old female. Has a pacemaker in place secondary to sick sinus syndrome. Has had cardiac ablation. Is not on anticoagulation. Is here for evaluation of several months of occasional chest discomfort and back discomfort and pounding in her head. She states there are days when the symptoms are worse than others and today seems to be 1 of the worst days. 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 She also states she was short of breath. Her back hurts when she lays back in his directly behind the area where she was having the chest discomfort. Shortness of breath is somewhat worse when she was lying down. Afebrile. No cough. Related Data Home Medications Medication Instructions Recorded Confirmed mometasone 50 mcg/actuation nasal 2 spray intranasal BID PRN Runny 11/15/22 02/14/24 spray Nose cholecalciferol (vitamin D3) 50 50 mcg PO DAILY 06/18/23 02/14/24 mcg (2,000 unit) capsule spironolactone 25 mg tablet 25 mg PO DAILY PRN water retention 06/18/23 02/14/24 omeprazole 20 mg capsule,delayed 20 mg PO DAILY 11/20/23 02/14/24 release sotalol 80 mg tablet 80 mg PO Q12H 03/03/24 Previous Rx's Medication Instructions Recorded alprazolam 0.25 mg tablet 0.25 mg PO TID PRN anxiety or 09/19/23 sleep #90 tabs benzonatate 200 mg capsule 200 mg PO TID PRN cough #30 caps 11/16/23 guaifenesin 1,200 mg tablet, 1,200 mg PO Q12H #30 tabs 11/16/23 extended release 12 hr estradiol 0.075 mg/24 hr 1 patch transdermal 2XW #8 ea 01/02/24 semiweekly transdermal patch (Vivelle-Dot) naloxone 4 mg/actuation nasal 1 spray intranasal Q2M #2 ea 02/14/24 spray (Narcan) tramadol 50 mg tablet 50 mg PO BID PRN pain #30 tabs 02/14/24 zolpidem 10 mg tablet 10 mg PO BEDTIME insomnia #90 tabs 02/25/24 Allergies Allergy/AdvReac Type Severity Reaction Status Date / Time doxycycline [DOXYCYCLINE] AdvReac Severe Pressure Verified 04/10/24 11:03 behind eyes/blurred vision/headaches Review of Systems Review of Systems ROS Unobtainable: All systems reviewed & are unremarkable except as noted in HPI and below Patient History Medical History Foraminal stenosis of cervical region Pain of scalp Thoracic back pain Myofascial pain Sinus drainage Arthritis Headache, migraine Edema Cholelithiasis 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 Thoracic region somatic dysfunction Chronic left-sided thoracic back pain Segmental and somatic dysfunction of abdomen and other regions Segmental and somatic dysfunction of rib cage Cervical somatic dysfunction Cranial somatic dysfunction Chronic neck pain Cervical spondylosis Pacemaker Pulmonary nodule Ischemic colon Bilateral occipital neuralgia Occipital neuralgia of left side Insomnia Palpitations Vaginal pessary in situ Insufficiency, adrenal Rectocele Vaginal atrophy Cystocele Atrial tachycardia Paroxysmal supraventricular tachycardia Insomnia (~10/2019) Obstructive sleep apnea (~10/2019) Obesity (BMI 30.0-34.9) Intermittent palpitations Irregular heart rhythm Mixed incontinence Fall Left foot pain Sciatica, right side Right hip pain Low back pain Steatosis of liver Primary osteoarthritis (03/20/11) Degeneration of intervertebral disc (03/20/11) History of bariatric surgery (03/20/11) Mitral and aortic incompetence (03/20/11) Surgical History Hx laparoscopic cholecystectomy History of surgery (1999) Hx of fusion of cervical spine (2012) Hx of bilateral breast reduction surgery (2013) Hx of abdominoplasty (1989) Hx of sinus surgery H/O: hysterectomy (1991) Hx of fusion of cervical spine (2000) Hx of laparoscopic gastric banding (2010) History of cardiac radiofrequency ablation Status post hysterectomy Family History Father Heart disease Social History household members: spouse Smoking Status: Former smoker Tobacco: How many years used: 30 second hand exposure: Yes (rarely) alcohol intake: current substance use type: marijuana Smoking Status: Former smoker alcohol intake frequency: holidays/special occasions only Substance Use Type: marijuana Exam Initial Vital Signs Initial Vital Signs: Vital Signs Temperature 97.9 F 04/10/24 10:54 Pulse Rate 68 04/10/24 10:54 Respiratory Rate 14 04/10/24 10:54 Blood Pressure 199/77 H 04/10/24 10:54 Pulse Oximetry 99 04/10/24 10:54 Oxygen Delivery Method Room Air 04/10/24 10:54 Const General: cooperative, comfortable and No ill appearing HENMT Head: normal to inspection and normocephalic Resp Effort & Inspection: normal respiratory effort Auscultation: clear to auscultation bilaterally Cardio Rate: regular rate Rhythm: regular rhythm GI Inspection: normal to inspection Skin General: no rashes or lesions noted Neuro General: patient alert, patient awake and moves all extremities Extrem General: normal to inspection and capillary refill normal Course Orders Ordered: ED Orders 04/10/24 11:06 XR chest 1V Stat EKG-12 Lead Stat Measure peak expiratory flow ONCE RT Consult Eval and Treat NOW 04/10/24 11:09 Complete Blood Count AUTO DIFF Stat Comprehensive Metabolic Panel Stat NT-proBNP (BNP-Adult 18+) Stat Procalcitonin Stat Troponin & CK Cardiac Panel Stat 04/10/24 11:26 Covid-19 + FLU A/B + RSV - PCR Stat 04/10/24 11:50 CT angio chest abdomen pelvis Stat 04/10/24 13:09 Troponin & CK Cardiac Panel Stat 04/10/24 15:03 Troponin & CK Cardiac Panel Stat 04/10/24 16:55 Troponin & CK Cardiac Panel Stat Vital Signs Vital signs: Vital Signs - 8 hr 04/10/24 10:54 04/10/24 10:59 04/10/24 10:59 Temperature 97.9 F Pulse Rate 68 Respiratory Rate 14 Blood Pressure 199/77 H 219/95 H Pulse Oximetry 99 97 Oxygen Delivery Method Room Air 04/10/24 11:00 04/10/24 11:02 04/10/24 11:02 Temperature Pulse Rate 77 70 Respiratory Rate Blood Pressure 199/77 H Pulse Oximetry 97 97 Oxygen Delivery Method 04/10/24 11:30 04/10/24 12:00 04/10/24 12:16 Temperature Pulse Rate 69 69 Respiratory Rate 16 22 Blood Pressure 158/68 H Pulse Oximetry 94 Oxygen Delivery Method 04/10/24 12:16 04/10/24 12:30 04/10/24 12:34 Temperature Pulse Rate 68 69 69 Respiratory Rate 11 L 17 20 Blood Pressure Pulse Oximetry 99 97 98 Oxygen Delivery Method 04/10/24 12:34 04/10/24 13:00 04/10/24 13:01 Temperature Pulse Rate 69 69 Respiratory Rate 15 12 Blood Pressure 143/65 H Pulse Oximetry 96 96 Oxygen Delivery Method 04/10/24 13:01 04/10/24 13:30 04/10/24 13:30 Temperature Pulse Rate 69 Respiratory Rate Blood Pressure 171/72 H 170/73 H Pulse Oximetry 98 Oxygen Delivery Method 04/10/24 14:00 04/10/24 14:00 04/10/24 15:15 Temperature Pulse Rate 69 69 Respiratory Rate 20 Blood Pressure 188/80 H Pulse Oximetry 99 93 Oxygen Delivery Method 04/10/24 15:30 04/10/24 15:31 04/10/24 15:31 Temperature Pulse Rate 69 69 Respiratory Rate 23 25 H Blood Pressure 156/71 H Pulse Oximetry 97 97 Oxygen Delivery Method 04/10/24 16:00 Temperature Pulse Rate 69 Respiratory Rate 23 Blood Pressure Pulse Oximetry 98 Oxygen Delivery Method Medical Decision Making Lab Data Lab results reviewed: Yes I reviewed the patient's lab results. 04/10/24 11:09 04/10/24 11:09 Labs: Lab Results 04/10/24 04/10/24 04/10/24 Range/Units 11:09 11:09 11:26 WBC 8.1 (4.5-11.0) X10^3/uL RBC 4.68 (4.0-5.2) X10^6/uL Hgb 14.8 (12.0-16.0) g/dL Hct 43.5 (36-46) % MCV 93.0 (80-100) fL MCH 31.6 (26-34) PG MCHC 34.0 (30-36) % RDW 12.8 (11.6-14.8) % Plt Count 238 (150-400) X10^3/uL Neut % (Auto) 60.8 (50-75) % Lymph % (Auto) 30.9 (25-40) % Pondera % (Auto) 6.2 (3-14) % Eos % (Auto) 1.0 L (2-4) % Baso % (Auto) 1.1 (0-2) % Neut # (Auto) 4900 (8255-8814) /uL Lymph # (Auto) 2500 (8403-9551) /uL Pondera # (Auto) 500 (0-900) /uL Eos # (Auto) 100 (0-450) /uL Baso # (Auto) 100 (0-100) /uL Sodium 140 (137-145) mmol/L Potassium 4.2 (3.4-5.1) mmol/L Chloride 109 H (98-107) mmol/L Carbon Dioxide 17 L (22-32) mmol/L BUN 17 (7-17) mg/dL Creatinine 0.81 (0.52-1.04) mg/dL Estimated GFR > 60 (>60) mL/min BUN/Creatinine Ratio 21.0 (6-22) Glucose 134 H (80-110) mg/dL Calcium 9.8 (8.4-10.2) mg/dL Total Bilirubin 0.6 (0.2-1.3) mg/dL AST 32 (14-36) IU/L ALT 21 (<35) IU/L Alkaline Phosphatase 74 (38-126) U/L Total Creatine Kinase 37 (30-135) U/L Troponin I Cancelled 0.021 NT-Pro-B Natriuret Pep 615 H (<125) pg/mL Total Protein 7.9 (6.3-8.2) g/dL Albumin 4.7 (3.5-5.0) g/dL Globulin 3.2 (1.7-4.1) g/dL Albumin/Globulin Ratio 1.5 (1.0-2.8) Procalcitonin 0.047 (<0.5) ng/mL SARS-CoV-2 (PCR) Negative (Negative) Influenza A (RT-PCR) Flu a negative (NEGATIVE) Influenza B (RT-PCR) Flu b negative (NEGATIVE) RSV (PCR) Negative (Negative) 04/10/24 04/10/24 04/10/24 Range/Units 13:09 15:03 16:55 WBC (4.5-11.0) X10^3/uL RBC (4.0-5.2) X10^6/uL Hgb (12.0-16.0) g/dL Hct (36-46) % MCV (80-100) fL MCH (26-34) PG MCHC (30-36) % RDW (11.6-14.8) % Plt Count (150-400) X10^3/uL Neut % (Auto) (50-75) % Lymph % (Auto) (25-40) % Pondera % (Auto) (3-14) % Eos % (Auto) (2-4) % Baso % (Auto) (0-2) % Neut # (Auto) (8737-5538) /uL Lymph # (Auto) (9892-8901) /uL Pondera # (Auto) (0-900) /uL Eos # (Auto) (0-450) /uL Baso # (Auto) (0-100) /uL Sodium (137-145) mmol/L Potassium (3.4-5.1) mmol/L Chloride (98-107) mmol/L Carbon Dioxide (22-32) mmol/L BUN (7-17) mg/dL Creatinine (0.52-1.04) mg/dL Estimated GFR (>60) mL/min BUN/Creatinine Ratio (6-22) Glucose (80-110) mg/dL Calcium (8.4-10.2) mg/dL Total Bilirubin (0.2-1.3) mg/dL AST (14-36) IU/L ALT (<35) IU/L Alkaline Phosphatase (38-126) U/L Total Creatine Kinase 30 34 32 (30-135) U/L Troponin I 0.037 H 0.063 H 0.071 H NT-Pro-B Natriuret Pep (<125) pg/mL Total Protein (6.3-8.2) g/dL Albumin (3.5-5.0) g/dL Globulin (1.7-4.1) g/dL Albumin/Globulin Ratio (1.0-2.8) Procalcitonin (<0.5) ng/mL SARS-CoV-2 (PCR) (Negative) Influenza A (RT-PCR) (NEGATIVE) Influenza B (RT-PCR) (NEGATIVE) RSV (PCR) (Negative) Urine Dip Bedside Urine Glucose Negative Bedside Urine Bilirubin - Negative Bedside Urine Ketone - Negative Urine Specific Whiting 1.005 Bedside Urine Occult Blood - Negative Bedside Urine pH 6.0 Bedside Urine Protein - Negative Bedside Urine Urobilinogen - Negative Bedside Urine Nitrite - Negative Bedside Urine Leukocytes - Negative Esterase Point of care testing: Urine Dip Bedside Urine Glucose Negative Bedside Urine Bilirubin - Negative Bedside Urine Ketone - Negative Urine Specific Whiting 1.005 Bedside Urine Occult Blood - Negative Bedside Urine pH 6.0 Bedside Urine Protein - Negative Bedside Urine Urobilinogen - Negative Bedside Urine Nitrite - Negative Bedside Urine Leukocytes - Negative Esterase Imaging Data Chest x-ray: Radiologist's Impression: PROCEDURE: XR CHEST 1V INDICATIONS: Shortness of breath TECHNIQUE: One view of the chest was acquired. COMPARISON: [facility], CR, XR CHEST 1V, 04/11/2021, 10:13. FINDINGS: Surgical changes and devices: Pacemaker Lungs and pleura: Lungs are clear. No pleural effusions or pneumothorax. Mediastinum: Mediastinal contours appear normal. Heart size is normal. Bones and chest wall: No suspicious bony lesions. Overlying soft tissues appear unremarkable. IMPRESSION: No acute cardiopulmonary abnormality is seen. CT scan - chest: Radiologist's Impression: PROCEDURE: CT ANGIO CHEST ABDOMEN PELVIS INDICATIONS: eval for TAD TECHNIQUE: Precontrast 5 mm thick sections acquired from the lung apices to the iliac crests. After the administration of intravenous contrast, 2.5 mm thick sections again acquired from the lung apices to the iliac crests. Maximum intensity projection (MIP) oblique sagittal and coronal reformats were then acquired. For radiation dose reduction, the following was used: automated exposure control. COMPARISON: None. FINDINGS: Image quality: Diagnostic. AORTA and its attachments: Normal caliber thoracic and abdominal aorta without dissection. Classic three-vessel arch anatomy. Moderate origin narrowing of the left subclavian artery with soft plaque. Left common carotid and brachiocephalic arteries are patent. Mild infrarenal abdominal aortic soft and hard plaque. Some of the soft plaque in the infrarenal abdominal aorta appears to be minimally attached to the wall of the aorta and somewhat floating. Reference sagittal image 127 of series 10. Mild proximal SMA stenosis. Celiac, bilateral renal arteries, and JEFFERSON are patent. Iliacs and common femorals are patent. CHEST: Lower Neck: No enlarged lymph nodes. Thyroid: No thyroid nodules which require sonographic evaluation. Axillae: No enlarged lymph nodes. Chest Wall: Unremarkable. Lungs and Pleura: No pneumothorax or pleural effusions. Tree-in-bud opacities in the medial right upper lobe are consistent with an inflammatory or infectious process, potentially chronic. Heart: Heart size is normal. Pacemaker. No pericardial effusion. Thoracic Vessels: Pulmonary arteries demonstrate normal size. Mediastinum and Dedra: No enlarged lymph nodes. Esophagus: No wall thickening. No hiatal hernia. ABDOMEN: Liver: No solid mass. Gallbladder: Surgically absent Biliary ducts: No biliary dilation. Pancreas: No ductal dilation. Spleen: Size is within normal limits. Adrenal Glands: No adrenal nodules. Kidneys and Ureters: No hydronephrosis. No solid mass. No complex renal cystic lesion which requires follow up. Stomach and Bowel: Normal colonic caliber, without significant wall thickening. Peritoneum: No abnormal intraperitoneal fluid. No free air. Ventral Wall: No hernia. Abdominal Nodes: No retroperitoneal or mesenteric adenopathy by size criteria. Vessels: Inferior vena cava is normal in size. PELVIS: Pelvic Organs: Uterus is surgically absent.. Bladder: Unremarkable. Pelvic Nodes: No enlarged lymph nodes. Miscellaneous: No inguinal hernias are seen. Bones: Lumbar degenerative change. No lytic or blastic bony lesions. No compression fractures. . IMPRESSION: 1. Normal caliber thoracic and abdominal aorta without dissection or aneurysm. 2. 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 3. Note made of soft James plaque present in the infrarenal abdominal aorta which appears to be minimally attached to the wall and somewhat floating in the lumen. 4. Tree-in-bud opacity in the right upper lobe is consistent with inflammation or infection, potentially chronic. 5. Remote hysterectomy and cholecystectomy. ECG Data Attestation: I personally reviewed and interpreted this ECG as follows: Interpretation: Ventricularly paced Rate is 70 MDM Narrative Medical decision making narrative: CT scan of the chest shows no signs of aortic pathology. She has had the discomfort off and on for several weeks and some days are better than others and today just happened to be 1 of the worst days. Initial troponin negative. Subsequent troponins are elevating however has not reach criteria that would define NSTEMI. I did discuss the case with Dr. Day on-call for cardiology who recommended holding on any heparin. Recommended admission to the hospital for trending of the troponins, echocardiogram and stress testing. I did discuss the case with Dr. Villar hospitalist on-call who will admit. Discussed the need for admission with the patient. She expressed understanding and agreement with plan. Discharge Plan Departure Patient Disposition: Admitted as Observation Clinical Impression: Chest pain Admit Date/Time: 04/10/24 18:12 Admit Provider: Charly Villar
[2024-04-10 11:54] LABS: Procalcitonin 0.047 ng/mL (<0.5)
[2024-04-10 12:02] LABS: NT-proBNP (BNP-Adult 18+) 615 pg/mL (<125)
[2024-04-10 12:11] LABS: COVID-19 CEPHEID 4-PLEX PCR Negative (Negative); Influenza A - CEPHEID Flu A NEGATIVE (NEGATIVE); Influenza B - CEPHEID Flu B NEGATIVE (NEGATIVE); Respiratory Syncytial Virus Negative (Negative)
[2024-04-10 13:26] LABS: Creatine Kinase 30 U/L (30-135)
[2024-04-10 13:39] LABS: Troponin I 0.037 ng/mL (0.01-0.034)
[2024-04-10 15:26] LABS: Creatine Kinase 34 U/L (30-135)
[2024-04-10 15:39] LABS: Troponin I 0.063 ng/mL (0.01-0.034)
[2024-04-10 17:25] LABS: Creatine Kinase 32 U/L (30-135)
[2024-04-10 17:38] LABS: Troponin I 0.071 ng/mL (0.01-0.034)
[2024-04-10] MEDS: MORPHINE 4 MG/ML INJ 3 MG IV (19:13)
--- NOTE | 2024-04-10 19:18 | PM.HP.1 ---
History of Present Illness History of Present Illness Date Patient Seen: 04/10/24 Chief complaint: back pain, sob t-3 Narrative: 73 y/o with PMH of SSS, AV shawn ablation and PPM, presented with complaints on palpitations, chest tightness and shortness of breath when supine. Chest tightness lasts 1.5 minutes on average, accompanied by diaphoresis. She had 4 such episodes today. Without known CAD. Former smoker, positive family Hx for CAD. Troponin elevated with non-ischemic EKG. She has chronic difficulties with palpitations, she was on Sotalol up until a week ago when her production underwriter discontinued it as it did not take care of palpitations. Since some time ago she has difficulties with b/l leg swelling and used to be on Aldactone for it but she stopped taking it as edemas decreased. She has orthopnea making her sleep at 45 degree for some time now. Without cough. She has a history of nocturnal hypoxia and is suspected for ALEXEY. Placed in observation on medical telemetry for further workup. 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 Thoracic region somatic dysfunction Chronic left-sided thoracic back pain Segmental and somatic dysfunction of abdomen and other regions Segmental and somatic dysfunction of rib cage Cervical somatic dysfunction Cranial somatic dysfunction Chronic neck pain Cervical spondylosis Pacemaker Pulmonary nodule Ischemic colon Bilateral occipital neuralgia Occipital neuralgia of left side Insomnia Palpitations Vaginal pessary in situ Insufficiency, adrenal Rectocele Vaginal atrophy Cystocele Atrial tachycardia Paroxysmal supraventricular tachycardia Insomnia (~10/2019) Obstructive sleep apnea (~10/2019) Obesity (BMI 30.0-34.9) Intermittent palpitations Irregular heart rhythm Mixed incontinence Fall Left foot pain Sciatica, right side Right hip pain Low back pain Steatosis of liver Primary osteoarthritis (03/20/11) Degeneration of intervertebral disc (03/20/11) History of bariatric surgery (03/20/11) Mitral and aortic incompetence (03/20/11) Surgical History Hx laparoscopic cholecystectomy History of surgery (1999) Hx of fusion of cervical spine (2012) Hx of bilateral breast reduction surgery (2013) Hx of abdominoplasty (1989) Hx of sinus surgery H/O: hysterectomy (1991) Hx of fusion of cervical spine (2000) Hx of laparoscopic gastric banding (2010) History of cardiac radiofrequency ablation Status post hysterectomy Family History Father Heart disease Social History household members: spouse Smoking Status: Former smoker Tobacco: How many years used: 30 second hand exposure: Yes (rarely) alcohol intake: current substance use type: marijuana Meds Home Medications and Allergies Home Medications Medication Instructions Recorded Confirmed Type cholecalciferol (vitamin D3) 50 50 mcg PO DAILY 06/18/23 04/10/24 History mcg (2,000 unit) capsule spironolactone 25 mg tablet 25 mg PO DAILY PRN water retention 06/18/23 04/10/24 History alprazolam 0.25 mg tablet 0.25 mg PO TID PRN anxiety or 09/19/23 04/10/24 Rx sleep #90 tabs estradiol 0.075 mg/24 hr 1 patch transdermal 2XW #8 ea 01/02/24 04/10/24 Rx semiweekly transdermal patch (Vivelle-Dot) tramadol 50 mg tablet 50 mg PO BID PRN pain #30 tabs 02/14/24 04/10/24 Rx zolpidem 10 mg tablet 10 mg PO BEDTIME insomnia #90 tabs 02/25/24 04/10/24 Rx Allergies Allergy/AdvReac Type Severity Reaction Status Date / Time doxycycline [DOXYCYCLINE] AdvReac Severe Pressure Verified 04/10/24 11:03 behind eyes/blurred vision/headaches Review of Systems Constitutional Comments: w/o weight changes, fever, chills, sweats Eyes Comments: w/o vision changes ENT Comments: w/o congestion Cardiovascular Comments: see HPI Respiratory Comments: orthopnea Gastrointestinal Comments: w/o complaints Genitourinary Comments: w/o complaints Musculoskeletal Comments: chronic neck and LBP Psychiatric Comments: insomnia, anxiety Hematologic/Lymphatic Comments: w/o bleeding Exam Vital Signs (past 8 hours): - 04/10/24 11:30 04/10/24 12:00 04/10/24 12:16 Pulse Rate 69 69 Respiratory Rate 16 22 Blood Pressure 158/68 H Pulse Oximetry 94 04/10/24 12:16 04/10/24 12:30 04/10/24 12:34 Pulse Rate 68 69 69 Respiratory Rate 11 L 17 20 Blood Pressure Pulse Oximetry 99 97 98 04/10/24 12:34 04/10/24 13:00 04/10/24 13:01 Pulse Rate 69 69 Respiratory Rate 15 12 Blood Pressure 143/65 H Pulse Oximetry 96 96 04/10/24 13:01 04/10/24 13:30 04/10/24 13:30 Pulse Rate 69 Respiratory Rate Blood Pressure 171/72 H 170/73 H Pulse Oximetry 98 04/10/24 14:00 04/10/24 14:00 04/10/24 15:15 Pulse Rate 69 69 Respiratory Rate 20 Blood Pressure 188/80 H Pulse Oximetry 99 93 04/10/24 15:30 04/10/24 15:31 04/10/24 15:31 Pulse Rate 69 69 Respiratory Rate 23 25 H Blood Pressure 156/71 H Pulse Oximetry 97 97 04/10/24 16:00 Pulse Rate 69 Respiratory Rate 23 Blood Pressure Pulse Oximetry 98 Oxygen Delivery Method Room Air Const Other: In no distress, sitting in bed, daughter at bedside HENNV Other: Normocephalic. Eyes Other: normal inspection, EOMI Neck Other: w/o swelling, supple Resp Other: b/l wheezes Cardio Other: RRR Neuro Other: w/o deficits Extrem Other: w/o deformities Psych Other: Appropriate mood, lucid Objective ECG Impression: Ventricular paced, w/o ischemic changes Labs 04/10/24 11:09 04/10/24 11:09 Labs: Laboratory Results - last 24 hr 04/10/24 04/10/24 04/10/24 11:09 11:09 11:26 WBC 8.1 RBC 4.68 Hgb 14.8 Hct 43.5 MCV 93.0 MCH 31.6 MCHC 34.0 RDW 12.8 Plt Count 238 Neut % (Auto) 60.8 Lymph % (Auto) 30.9 [place] % (Auto) 6.2 Eos % (Auto) 1.0 L Baso % (Auto) 1.1 Neut # (Auto) 4900 Lymph # (Auto) 2500 [place] # (Auto) 500 Eos # (Auto) 100 Baso # (Auto) 100 Sodium 140 Potassium 4.2 Chloride 109 H Carbon Dioxide 17 L BUN 17 Creatinine 0.81 Estimated GFR > 60 BUN/Creatinine Ratio 21.0 Glucose 134 H Calcium 9.8 Total Bilirubin 0.6 AST 32 ALT 21 Alkaline Phosphatase 74 Total Creatine Kinase 37 Troponin I Cancelled 0.021 NT-Pro-B Natriuret Pep 615 H Total Protein 7.9 Albumin 4.7 Globulin 3.2 Albumin/Globulin Ratio 1.5 Procalcitonin 0.047 SARS-CoV-2 (PCR) Negative Influenza A (RT-PCR) Flu a negative Influenza B (RT-PCR) Flu b negative RSV (PCR) Negative 04/10/24 04/10/24 04/10/24 13:09 15:03 16:55 WBC RBC Hgb Hct MCV MCH MCHC RDW Plt Count Neut % (Auto) Lymph % (Auto) [place] % (Auto) Eos % (Auto) Baso % (Auto) Neut # (Auto) Lymph # (Auto) [place] # (Auto) Eos # (Auto) Baso # (Auto) Sodium Potassium Chloride Carbon Dioxide BUN Creatinine Estimated GFR BUN/Creatinine Ratio Glucose Calcium Total Bilirubin AST ALT Alkaline Phosphatase Total Creatine Kinase 30 34 32 Troponin I 0.037 H 0.063 H 0.071 H NT-Pro-B Natriuret Pep Total Protein Albumin Globulin Albumin/Globulin Ratio Procalcitonin SARS-CoV-2 (PCR) Influenza A (RT-PCR) Influenza B (RT-PCR) RSV (PCR) Assessment & Plan Assessment and plan (1) Chest pain: Qualifiers: Chest pain type: precordial pain Qualified Code(s): R07.2 - Precordial pain Status: Acute (2) 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 Chest Pain, Orthopnea - r/o ACS/ CHF - telemetry monitoring, pending echocardiogram, stress test, lipids, TSH, A1C - elevated BNP, continue Aldactone, suspected CHF 2. PPM, s/p AV node ablation - ventricular paced, functional - follows with cardiology, recently taken off Sotalol 3. Somatic Nerve Disfunction / Chronic Thoracic Pain - in a DD 4. Insomnia - Ambien 5. Anxiety - prn Xanax 6. Chronic LBP, neck pain - Tramadol DVT prophylaxis - Lovenox Time-Based Coding :: [TOTAL MINUTES] spent with patient and on the chart (including review of chart, obtaining history, exam, reviewing outside data, placing orders, documenting exam and treatment plan, and counseling patient) on [DATE]. Quality VTE Deep Vein Thrombosis/Pulmonary Embolism Present on Admission: No
[2024-04-10] MEDS: ALPRAZolam 0.25 MG TABLET PO (20:42)
[2024-04-10] MEDS: SPIRONOLACTONE 25 MG TABLET PO (20:42)
[2024-04-10] MEDS: ZOLPIDEM 5 MG TABLET 10 MG PO (23:24)
[2024-04-11] VITALS (7 sets, daily range): BP systolic 91–134; BP diastolic 44–78; PULSE 69–72; RESP 14–20; TEMP 36.2–36.8; O2SAT 95–96
[2024-04-11 00:12] LABS: Troponin I 0.123 ng/mL (0.01-0.034)
[2024-04-11 06:40] LABS: Add Manual Diff / Slide Review NO; Basophils Absolute Auto 100 /uL (0-100); Basophils Percent Auto 0.7 % (0-2); Eosinophils Absolute Auto 100 /uL (0-450); Eosinophils Percent Auto 1.2 % (2-4); Hematocrit 41.4 % (36-46); Hemoglobin 14.3 g/dL (12.0-16.0); Lymphocytes Absolute Auto 3000 /uL (1100-4500); Lymphocytes Percent Auto 37.4 % (25-40); Mean Corpuscular HGB Conc 34.5 % (30-36); Mean Corpuscular Volume 92.7 fL (80-100); Monocytes Absolute Auto 500 /uL (0-900); Monocytes Percent Auto 6.3 % (3-14); Neutrophils Absolute Auto 4400 /uL (1500-7000); Neutrophils Percent Auto 54.4 % (50-75); Platelet Count 203 X10^3/uL (150-400); Red Blood Cell Count 4.47 X10^6/uL (4.0-5.2); White Blood Cell Count 8.1 X10^3/uL (4.5-11.0)
[2024-04-11 06:48] LABS: BUN Creatinine Ratio 17.1 (6-22); Blood Urea Nitrogen 13 mg/dL (7-17); Calcium 9.1 mg/dL (8.4-10.2); Carbon Dioxide 23 mmol/L (22-32); Chloride 108 mmol/L (98-107); Cholesterol 249 mg/dL (140-199); Estimated Glomerular Filt Rate > 60 mL/min (>60); Glucose 92 mg/dL (80-110); HDL Cholesterol 53 mg/dL (40-60); HEMOLYSIS < 15 (0-50); LDL Cholesterol Calculated 157 mg/dL (<100); Magnesium 2.1 mg/dL (1.6-2.3); Potassium 4.2 mmol/L (3.4-5.1); Sodium 138 mmol/L (137-145); Triglycerides 196 mg/dL (35-150)
[2024-04-11 06:54] LABS: Hemoglobin A1C% w Est Avg Glu 4.8 % (4.0-6.0)
[2024-04-11] MEDS: ONDANSETRON 4 MG/2 ML INJ IV (06:56)
[2024-04-11 06:57] LABS: Troponin I 0.075 ng/mL (0.01-0.034)
[2024-04-11 07:19] LABS: TSH w/ Reflex to FT4 3.81 uIU/mL (0.47-4.68)
[2024-04-11] MEDS: TRAMADOL 50 MG TABLET PO (08:53)
--- NOTE | 2024-04-11 09:05 | DI.NM.S_ITS ---
PROCEDURE: NM ANDREY PERF SPECT R&S PHARM Rest and pharmacological stress myocardial perfusion SPECT with gated imaging and ejection fraction RADIOPHARMACEUTICAL: 9.6 mCi Tc-99m tetrafosmin IV at rest and 26.2 mCi Tc-99m tetrafosmin IV at peak effect of pharmacological stress. [id number] was performed. INDICATIONS: chest PQRS ATTESTATIONS: Measure 322 - Is this imaging test primarily performed on a low-risk surgery patient for preoperative evaluation within 30 days preceding their low-risk non-cardiac surgery? Low-risk surgery is defined as cardiac or myocardial infarction less than 1%, including (but not limited to) endoscopic procedures, superficial procedures, cataract surgery, and excisional breast surgery: Answer: No Measure 323 - Is this imaging test performed primarily for the monitoring of an asymptomatic patient who had percutaneous coronary intervention on the visit date or within 2 years of the visit date? Answer: No Measure 324 - Is this imaging test performed primarily for the initial detection and risk assessment on an asymptomatic, low coronary heart disease patient? Low CHD risk definition = clinicians should consider the maximum number of available patient factors used to estimate risk based on [place] (ATP III criteria), typically age, gender, diabetes, smoking status, and use of blood pressure medication, and integrate age appropriate estimates for missing elements, such as LDL or standard blood pressure. Answer: No TECHNIQUE: Radiopharmaceutical was injected at peak stress test, and also at rest. SPECT images were obtained. SPECT myocardial perfusion images were displayed in short axis, horizontal long axis, and vertical long axis views. Gated images were reviewed using [employer] software. COMPARISON: None. CARDIAC STRESS: A pharmacologic stress test was performed under the supervision of an attending staff, using an infusion of 0.4 mg of Lexiscan . Hemodynamic data: There is normal blood pressure and heart rate response to pharmacologic stress. Symptoms: The patient denied anginal chest pain. Aminophylline: No EKG: No diagnostic changes of ischemia; underlying ventricular paced rhythm. FINDINGS: Raw data: There is good myocardial uptake of radiotracer. No significant motion artifacts. Lbjy-oo-ivyjd ratio is N/A (normal is less than 0.38 for tetrafosmin tracer). Left ventricle function: Gated images demonstrate normal left ventricular wall thickening. No segmental wall motion abnormalities. No transient ischemic dilation; TID is 1.03 (normal less than 1.3). Left ventricle resting end diastolic volume is N/A. Left ventricle stress ejection fraction is 82% ; normal range is above 45%. Myocardial perfusion: There is a small area of moderate hypoperfusion at the basal to mid inferior segment noted in both the rest and stress images. However, this perfusion defect was no longer present on prone imaging. There was increased gut uptake noted. No other perfusion defects were identified.. IMPRESSION: Negative Lexiscan myocardial perfusion scan for ischemia and infarction. Dictated by: Domingo Bianchi M.D. on 04/11/2024 at 12:47 Approved by: Domingo Bianchi M.D. on 04/11/2024 at 12:50
--- NOTE | 2024-04-11 10:00 | DI.ECHO.S_ITS ---
[facility] : : [address] : : [place] : : [id number] : : Phone: [phone] Echocardiogram Report + :Name: YULISA DENNY Study Date: 04/11/2024 Height: 63 in : :Hospital ReadingLocation: Weight: 165 lb : : Gender: Female BSA: 1.8 m2 : :: 1950 Age: 73 yrs BP: 147/70 mmHg: :Reason For Study: CHEST PAIN : :Ordering Physician: Karolina : :Kvng Alexander Performed By: Gail West : :Referring: Kvng Christina : + Interpretation Summary The patient has a paced rhythm. The left ventricle is normal in size and wall thickness. The ejection fraction is estimated to be 55-60%. There is a mild dyssynchronous contraction pattern due to the paced rhythm. The right ventricle is grossly normal size. The right ventricular systolic function is normal. There is a pacemaker lead in the right ventricle. There is mild to moderate mitral regurgitation. There is mild aortic regurgitation. There is mild tricuspid regurgitation. The right ventricular systolic pressure is estimated to be at least 33 mmHg based on an estimated right atrial pressure of 3 mm Hg. The IVC is of normal diameter and collapses greater than 50% with a sniff. This suggests a low right atrial pressure of 3 mm Hg. Procedure: A two-dimensional transthoracic echocardiogram with color flow and Doppler was performed. The study quality was technically adequate. Comparison is made with the echocardiogram of 05-11-22. The heart rate ranged between 69-71 bpm during the study. The patient has a paced rhythm. Left Ventricle: The left ventricle is normal in size and wall thickness. There is no thrombus. The ejection fraction is estimated to be 55-60%. The left ventricular ejection fraction is normal. There is a mild dyssynchronous contraction pattern due to the paced rhythm. Diastolic function could not be accurately assessed due to paced rhythm. Right Ventricle: There is a pacemaker lead in the right ventricle. The right ventricle is grossly normal size. The right ventricular systolic function is normal. Atria: The left atrial size is normal. Right atrial size is normal. The interatrial septum grossly appears intact with no obvious evidence for an atrial septal defect. Mitral Valve: The mitral valve leaflets appear mildly thickened, but open well. There is mild to moderate mitral regurgitation. Aortic Valve: The aortic valve is not well visualized. There is no hemodynamically significant valvular aortic stenosis. There is mild aortic regurgitation. Tricuspid Valve: The tricuspid valve is normal. There is mild tricuspid regurgitation. The right ventricular systolic pressure is estimated to be at least 33 mmHg based on an estimated right atrial pressure of 3 mm Hg. Pulmonic Valve: The pulmonic valve is not well visualized. Great Vessels: The aortic root is normal size. The ascending aorta could not be visualized. The aortic arch is normal in size. The IVC is of normal diameter and collapses greater than 50% with a sniff. This suggests a low right atrial pressure of 3 mm Hg. Pericardium/ Pleura There is no pericardial effusion. There is no pleural effusion. MMode/2D Measurements & Calculations LVIDd: 4.2 cm LVOT diam: 1.8 cm LVIDs: 2.5 cm Ao root diam: 2.9 cm FS: 39.1 % Ao Arch Diam (Prox Trans): 2.6 cm EPSS: 0.76 cm IVSd: 0.87 cm LVPWd: 0.77 cm LV schilling. diameter/BSA (cm/m^2): 2.3 LV sys. diameter/BSA (cm/m^2): 1.4 LA A2 area: 14.4 cm2 RA long axis: 4.7 cm LA A4 area: 16.9 cm2 RA area: 10.8 cm2 LA length (vol): 5.3 cm RA vol: 21.0 ml LA vol: 39.0 ml RA : 11.8 ml/m2 LA vol index: 21.9 ml/m2 IVC diam: 1.9 cm RVD1 (basal): 2.2 cm TAPSE: 2.1 cm Doppler Measurements & Calculations Ao V2 max: 174.6 cm/sec LVOT Max Rui: 91.1 cm/sec Ao V2 mean: 121.8 cm/sec LV V1 max P.3 mmHg Ao max P.2 mmHg LV V1 VTI: 19.4 cm Ao mean P.7 mmHg LURDES(I,D): 1.1 cm2 Ao V2 VTI: 41.7 cm LURDES(V,D): 1.3 cm2 sev ratio: 0.46 LURDES indexed to BSA (cm^2/m^2): 0.63 AI P1/2t: 688.3 msec AI dec slope: 158.7 cm/sec2 MV E max rui: 96.0 cm/sec TR max rui: 271.6 cm/sec MV A max rui: 112.8 cm/sec TR max P.5 mmHg MV E/A: 0.85 PA V2 max: 107.3 cm/sec Med Peak E' Rui: 6.1 cm/sec PA V2 mean: 73.7 cm/sec E/E' med: 15.8 PA mean P.5 mmHg Lat Peak E' Rui: 7.6 cm/sec PA pr(Accel): 36.2 mmHg E/E' lat: 12.6 E/e' average: 14.2 MV dec time: 0.27 sec SV(LVOT): 46.7 ml Reading Physician:12:41 PM
--- NOTE | 2024-04-11 11:05 | CM.DANOTE ---
DCP Assessment Note: Pt is a 73yo female, resident [facility], is admitted for shortness of breath and chest pains. Pt lives in a house with her , Charly. Pt's Primary Care Provider is ANT Lindo and insurance is Medicare and [facility] Reviewed chart and team rounds for pt's medical status and initial discharge needs. DCP met w/patient at bedside; introduced self and role. Present in the room is pt's , Charly. Patient was found in bed, alert and oriented, cooperative with assessment. Pt confirmed living situation and good support in . Pt expressed preference in returning home after stress test and ultrasound. Pt denied need for referral to home health or other services post-discharge. Plan: Anticipating discharge home with spouse when medically cleared, pending stress test and ultrasound. CM team will follow closely for coordination of discharge plans. MARCUS Jennings Discharge Planning/Care Management CM Discharge Assessment Start: 04/11/24 11:03 Freq: Status: Active Protocol: Document 04/11/24 11:03 MW (Rec: 04/11/24 11:04 [id number]) Discharge Planning Assessment Assigned Pocket Secretary Assembler CLAUDIA Smith DPOA/Assigned Designee Name Charly, Spouse Contact Information [phone] Advance Directives? Yes Advance Directives on File Yes History Provided By Patient,Medical Record Expected Length of Stay 1 Prior Living Arrangements House Household Members spouse Type of transporation used prior to Drives own vehicle admit Independent with ADL's Yes Is patient alert and oriented? Yes Caregiver for Another No Barriers to Discharge No Discharge Plan Home Referrals Initiated None needed Whiteboard Updated in Patient Room with Yes name and ext. # of Pocket Secretary Assembler Comment [phone] Please Provide Date Initial DC 04/11/24 Assessment Was Performed Next Review Type Continued Stay Review
[2024-04-11] MEDS: IBUPROFEN 400 MG TABLET PO (15:41)
--- NOTE | 2024-04-11 16:06 | PM.DS.1 ---
History of Present Illness History of Present Illness Chief complaint: back pain, sob t-3 Narrative: From H&P: 73 y/o with PMH of SSS, AV shawn ablation and PPM, presented with complaints on palpitations, chest tightness and shortness of breath when supine. Chest tightness lasts 1.5 minutes on average, accompanied by diaphoresis. She had 4 such episodes today. Without known CAD. Former smoker, positive family Hx for CAD. Troponin elevated with non-ischemic EKG. She has chronic difficulties with palpitations, she was on Sotalol up until a week ago when her underwriting operations manager discontinued it as it did not take care of palpitations. Since some time ago she has difficulties with b/l leg swelling and used to be on Aldactone for it but she stopped taking it as edemas decreased. She has orthopnea making her sleep at 45 degree for some time now. Without cough. She has a history of nocturnal hypoxia and is suspected for ALEXEY. Placed in observation on medical telemetry for further workup. Discharge Providers Provider Date of admission: 04/10/24 18:12 Discharge Date: 04/11/24 Primary care physician: TAYLOR Lindo Consults: None. Discussed with her underwriting operations manager, Dr Camarillo, at [facility]. Discharge provider: Tor Collazo MD Summary Hospital Course Discharge Diagnosis: 1. Atypical chest pain and palpitations. Present on admission and improved. 2. Pacer dyssynchrony. Present on admission and active. 3. Anxiety. Stable. 4. Chronic LBP. Stable. Hospital Course: Admitted with atypical chest pain and negative cardiac enzymes. She had a negative stress test was discussed with her underwriting operations manager. She has chronic palpitations relating to her pacemaker. She will see him in follow up as scheduled in the next 4 weeks. Echo did reveal significant mitral regurgitation, and a CT PE was negative. Status at Discharge Cognitive/behavioral status at discharge: oriented Functional status at discharge: independent ambulation Overall status at discharge: patient is back to baseline Time Spent with Patient Time spent: Greater than 30 minutes Exam Vital Signs (past 8 hours): - 04/11/24 08:45 04/11/24 10:00 04/11/24 13:00 Temperature 98.2 F Pulse Rate 70 Respiratory Rate 16 Blood Pressure 134/78 Pulse Oximetry 95 96 Oxygen Delivery Method Room Air Room Air Oxygen Flow Rate 0 Oxygen Delivery Method Room Air Oxygen Flow Rate 0 Narrative Exam Narrative: NAD, alert and oriented. Fluent speech. Lungs are clear, normal rate and effort. Heart is regular, no murmur gallop or rub. Abdomen is soft, non distended. Extremities are free of edema. Objective ECG Impression: Ventricular-paced rhythm Imaging Multiple studies:: Radiologist's impression: ECHO: normal EF, moderate MR. Stress test: Negative Lexiscan myocardial perfusion scan for ischemia and infarction. Chest/A/P CT: 1. Normal caliber thoracic and abdominal aorta without dissection or aneurysm. 2. 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 3. Note made of soft [place] plaque present in the infrarenal abdominal aorta which appears to be minimally attached to the wall and somewhat floating in the lumen. 4. Tree-in-bud opacity in the right upper lobe is consistent with inflammation or infection, potentially chronic. 5. Remote hysterectomy and cholecystectomy. CXR: No acute cardiopulmonary abnormality is seen. Labs 04/11/24 06:10 04/11/24 06:10 Labs: Laboratory Results - last 24 hr 04/10/24 04/10/24 04/11/24 16:55 23:30 06:10 WBC 8.1 RBC 4.47 Hgb 14.3 Hct 41.4 MCV 92.7 MCH 32.0 MCHC 34.5 RDW 13.0 Plt Count 203 Neut % (Auto) 54.4 Lymph % (Auto) 37.4 Mineral % (Auto) 6.3 Eos % (Auto) 1.2 L Baso % (Auto) 0.7 Neut # (Auto) 4400 Lymph # (Auto) 3000 Mineral # (Auto) 500 Eos # (Auto) 100 Baso # (Auto) 100 Sodium 138 Potassium 4.2 Chloride 108 H Carbon Dioxide 23 BUN 13 Creatinine 0.76 Estimated GFR > 60 BUN/Creatinine Ratio 17.1 Glucose 92 Hemoglobin A1c 4.8 Calcium 9.1 Magnesium 2.1 Total Creatine Kinase 32 Troponin I 0.071 H 0.123 H* 0.075 H Triglycerides 196 H Cholesterol 249 H LDL Cholesterol, Calc 157 H HDL Cholesterol 53 TSH 3.81 PFSH Medical History Anxiety Foraminal stenosis of cervical region Pain of scalp Thoracic back pain Myofascial pain Sinus drainage Arthritis Headache, migraine Edema Cholelithiasis 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 Thoracic region somatic dysfunction Chronic left-sided thoracic back pain Segmental and somatic dysfunction of abdomen and other regions Segmental and somatic dysfunction of rib cage Cervical somatic dysfunction Cranial somatic dysfunction Chronic neck pain Cervical spondylosis Pacemaker Pulmonary nodule Ischemic colon Bilateral occipital neuralgia Occipital neuralgia of left side Insomnia Palpitations Vaginal pessary in situ Insufficiency, adrenal Rectocele Vaginal atrophy Cystocele Atrial tachycardia Paroxysmal supraventricular tachycardia Insomnia (~10/2019) Obstructive sleep apnea (~10/2019) Obesity (BMI 30.0-34.9) Intermittent palpitations Irregular heart rhythm Mixed incontinence Fall Left foot pain Sciatica, right side Right hip pain Low back pain Steatosis of liver Primary osteoarthritis (03/20/11) Degeneration of intervertebral disc (03/20/11) History of bariatric surgery (03/20/11) Mitral and aortic incompetence (03/20/11) Surgical History Hx laparoscopic cholecystectomy History of surgery (1999) Hx of fusion of cervical spine (2012) Hx of bilateral breast reduction surgery (2013) Hx of abdominoplasty (1989) Hx of sinus surgery H/O: hysterectomy (1991) Hx of fusion of cervical spine (2000) Hx of laparoscopic gastric banding (2010) History of cardiac radiofrequency ablation Status post hysterectomy Family History Father Heart disease Social History household members: spouse Smoking Status: Former smoker Tobacco: How many years used: 30 second hand exposure: Yes (rarely) alcohol intake: current substance use type: marijuana Discharge Assessment & Plan Assessment and Plan Assessment: 1. Atypical chest pain and palpitations. Present on admission and improved. 2. Pacer dyssynchrony. Present on admission and active. Plan of Treatment: Discharge home, no new medications. Had stopped Sotalol recently. Discharge Plan Discharge Plan Patient Disposition: Home Provider Discharge Comment: Stable for DC home, discussed with Rabia (underwriting operations manager). No medication changes, she was close follow up with him. Discharge orders & Medications Prescriptions: Continued alprazolam 0.25 mg tablet 0.25 mg PO TID PRN (Reason: anxiety or sleep) Qty: 90 3RF Hold Instructions: on verapamil estradiol [Vivelle-Dot] 0.075 mg/24 hr patch semiweekly 1 patch transdermal 2XW Qty: 8 3RF Rx Instructions: DISP BRAND VIVELLE-DOT zolpidem 10 mg tablet 10 mg PO BEDTIME Qty: 90 3RF Hold Instructions: try Lunesta spironolactone 25 mg tablet 25 mg PO DAILY PRN (Reason: water retention) cholecalciferol (vitamin D3) 50 mcg (2,000 unit) capsule 50 mcg PO DAILY tramadol 50 mg tablet 50 mg PO BID PRN (Reason: pain) Qty: 30 1RF Medication counseling provided by Pharmacist: No Follow up/Referrals: Rose Lopez ARNP [Primary Care Provider] - Discharge Health Status Multidrug resistant organism: No MDRO Diet/Activity/Treatments Diet: Diet as Tolerated Visit Report/Discharge Packet Stand Alone Forms: Patient Portal/API Discharge Data Primary Care Provider: Rose Lopez Attending Provider: Charly Villar Admit Date/Time: 04/10/24 18:12 Quality VTE Deep Vein Thrombosis/Pulmonary Embolism Present on Admission: No
--- NOTE | 2024-04-11 17:03 | PC.NURSE ---
Pt discharged home at 1655, escorted off floor in wheelchair accompanied by friend and hospital staff. IV removed, tele d/c'd, discharge teaching completed including worsening symptoms and follow up appointments. Patient left the floor with all belongings.
== END 2024-04-11 17:05 | disposition home or self-care (01) ==
LOC: ED 11:09 → AC 18:13
PROVIDERS: Admitting Provider Internal Medicine; Emergency Provider Emergency Medicine; PCP Nurse Practitioner; Referring Provider Emergency Medicine; Visit Provider Internal Medicine
DX: R07.89 Other chest pain (principal); R00.2 Palpitations; I97.190 Other postprocedural cardiac functional disturbances following cardiac surgery; F41.9 Anxiety disorder, unspecified; Z95.0 Presence of cardiac pacemaker; M54.50 Low back pain, unspecified; G89.29 Other chronic pain
CPT/HCPCS: 0241U; 36415; 71045; 71275; 74174; 78452; 80048; 80053; 80061; 81003; 82550; 83036; 83735; 83880; 84145; 84443; 84484; 85025; 93005; 93010; 93017; 93306; 96374; 96375; 99284; G0378; A9502; J2270; J2405; J2785; Q9967

== ENCOUNTER → 2024-05-27 09:46 | Outpatient (CLI) | payer MEDICARE, SELFPAY ==
[2024-04-10 18:53] VITALS: BMI 29.2
--- NOTE | 2024-05-27 09:47 | DI.MG.S_ITS ---
BILATERAL DIGITAL SCREENING MAMMOGRAM 3D/2D WITH CAD: 05/27/2024 CLINICAL: Routine screening. Comparison is made to exams dated: 10/22/2021 mammogram, 08/10/2020 mammogram, and 06/07/2019 mammogram - [facility]. The breasts are heterogeneously dense, which may obscure small masses (category c / 51-75% glandular tissue). Current study was also evaluated with a Computer Aided Detection (CAD) system. No significant masses, calcifications, or other findings are seen in either breast. There has been no significant interval change. IMPRESSION: NEGATIVE There is no mammographic evidence of malignancy. A 1 year screening mammogram is recommended. Based on the Tyrer Cuzick model (a risk assessment model) the patient's lifetime risk is 3.8% and her 10 year risk is 3.1%. According to the ACR, ACS, and NCCN guidelines, an annual breast MRI exam along with mammogram is recommended if the patient's lifetime risk is 20% or greater. This exam was interpreted at Station ID: [id number]. NOTE: For mammograms, a report in lay terms will be sent to the patient. Approximately 15% of breast malignancies will not be visualized mammographically. In the management of a palpable breast mass, a negative mammogram must not discourage biopsy of a clinically suspicious lesion. Electronically Signed By: Curt pryor/tomas:05/27/2024 13:00:34 letter sent: Normal Exam ACR BI-RADS Category 1: Negative
--- NOTE | 2024-05-27 09:47 | DI.RAD.S_ITS ---
PROCEDURE: XR DEXA AXIAL SKELETON INDICATIONS: post menopausal osteoporosi COMPARISON: [facility], CR, XR DEXA AXIAL SKELETON, 07/07/2020, 15:15. FINDINGS: Lumbar Spine: Bone mineral density 1.266 g/cm2, T score 2.0, compared to 2.7 Left Hip: Bone mineral density 0.995 g/cm2, T score 0.4 compared to 0.8, Left Femoral Neck: Bone mineral density 0.845 g/cm2, T score 0, compared to -0.1. Right Hip: Bone mineral density 0.954 g/cm2, T score 0.1, compared to 0.6. Right Femoral Neck: Bone mineral density 0.799 g/cm2, T score -0.4, compared to -0.1. Fracture Risk Calculation (when applicable): 10-year fracture risk of a major osteoporotic fracture 12 percent and of a hip fracture 2.5 percent. (T score greater or equal to -1.0 to: NORMAL) (T score from -1.1 to -2.4: OSTEOPENIA) (T score less than or equal to -2.5: OSTEOPOROSIS) IMPRESSION: There is overall loss of bone mineral density although no osteopenia is present. Follow-up guidelines as follows: Osteoporosis: Consider a repeat DEXA and Vertebral Fracture Assessment (VFA) exam in 2 years or sooner if medically necessary, to reassess this patient's status. Osteopenia: Consider a repeat DEXA in 2-3 years to reassess this patient's status, or if there is a new clinical indication. Normal: Consider a repeat DEXA in 5 years or sooner, or if there is a new clinical indication. All treatment decisions require clinical judgment and consideration of individual patient factors, including patient preferences, comorbidities, previous drug use, risk factors not captured in the FRAX model (e.g., frailty, falls, vitamin D deficiency, increased bone turnover, interval significant decline in bone density ) and possible under- or over-estimation of fracture risk by FRAX. In addition, the NOF Guide recommends that FDA-approved medical therapies be considered in postmenopausal women and men age >= 50 years with a: * Hip or vertebral (clinical or morphometric) fracture * T-score of <=-2.5 at the spine or hip * Ten-year fracture probability by FRAX of >= 3% for hip fracture or >=20% for major osteoporotic fracture. People with diagnosed cases of osteoporosis or at high risk for fracture should have regular bone mineral density tests. For patients eligible for Medicare, routine testing is allowed once every 2 years. The testing frequency can be increased to one year for patients who have rapidly progressing disease, those who are receiving or discontinuing medical therapy to restore bone mass, or have additional risk factors. Dictated by: Christy Quiroz M.D. on 05/27/2024 at 14:23 Approved by: Christy Quiroz M.D. on 05/27/2024 at 14:24
== END ==
PROVIDERS: PCP Family Medicine; Referring Provider Nurse Practitioner; Visit Provider Nurse Practitioner
DX: Z12.31 Encounter for screening mammogram for malignant neoplasm of breast (principal); M81.0 Age-related osteoporosis without current pathological fracture; R92.333 Mammographic heterogeneous density, bilateral breasts
CPT/HCPCS: 77063; 77067; 77080

== ENCOUNTER → 2024-07-01 09:00 | Outpatient (CLI) | payer MEDICARE, SELFPAY ==
[2024-04-10 18:53] VITALS: BMI 29.2
[2024-07-01 12:58] LABS: Add Manual Diff / Slide Review NO; Basophils Absolute Auto 0 /uL (0-100); Basophils Percent Auto 0.6 % (0-2); Eosinophils Absolute Auto 100 /uL (0-450); Eosinophils Percent Auto 1.1 % (2-4); Hematocrit 43.8 % (36-46); Lymphocytes Absolute Auto 2500 /uL (1100-4500); Lymphocytes Percent Auto 33.3 % (25-40); Mean Corpuscular HGB Conc 34.1 % (30-36); Mean Corpuscular Hemoglobin 31.2 PG (26-34); Mean Corpuscular Volume 91.5 fL (80-100); Monocytes Absolute Auto 400 /uL (0-900); Monocytes Percent Auto 5.6 % (3-14); Neutrophils Absolute Auto 4400 /uL (1500-7000); Neutrophils Percent Auto 59.4 % (50-75); Platelet Count 226 X10^3/uL (150-400); Red Blood Cell Count 4.79 X10^6/uL (4.0-5.2); Red Cell Distribution Width 12.9 % (11.6-14.8); White Blood Cell Count 7.4 X10^3/uL (4.5-11.0)
[2024-07-01 13:37] LABS: Blood Urea Nitrogen 15 mg/dL (7-17); Calcium 9.9 mg/dL (8.4-10.2); Carbon Dioxide 25 mmol/L (22-32); Chloride 105 mmol/L (98-107); Estimated Glomerular Filt Rate > 60 mL/min (>60); Glucose 131 mg/dL (80-110); HEMOLYSIS < 15 (0-50); Potassium 4.7 mmol/L (3.4-5.1); Sodium 139 mmol/L (137-145)
== END ==
PROVIDERS: PCP Family Medicine; Referring Provider Internal Medicine Cardiovascular Disease; Visit Provider Internal Medicine Cardiovascular Disease
DX: I44.2 Atrioventricular block, complete (principal)
CPT/HCPCS: 36415; 80048; 85025

== ENCOUNTER → 2024-11-16 10:41 | Outpatient (CLI) | payer MEDICARE, SELFPAY ==
[2024-04-10 18:53] VITALS: BMI 29.2
--- NOTE | 2024-11-16 10:43 | DI.CT.S_ITS ---
PROCEDURE: CT CHEST WO CON INDICATIONS: Annual f/u lung nodules/chronic SOB TECHNIQUE: Noncontrast 5 mm thick sections acquired from the pulmonary apices to the posterior costophrenic angles. 1 mm lung window, 5 mm thick coronal and sagittal and 7 mm axial MIP reformats were then acquired. For radiation dose reduction, the following was used: automated exposure control, adjustment of mA and/or kV according to patient size. COMPARISON: [facility], CT, CT CHEST WO CON, 11/16/2023, 12:18. FINDINGS: Image quality: Diagnostic Lungs and pleura: Right upper medial nodularity again seen, without suspicious focal solitary nodule. This is likely acute on chronic infection/inflammation. No pleural effusions. No airspace consolidation. In the left lateral lung, there is a new 3 mm nodule (/). Many other small ill-defined nodules and micro nodules are seen throughout the lungs best assessed on series 4. Mediastinum, heart, and esophagus: Cardiac electrode leads. Normal heart size. No pathologic lymph nodes by size criteria. There are coronary calcifications. There is a left chest wall pulse generator Chest wall and thyroid: Unremarkable Upper abdomen: No gross abnormality on these noncontrast images Bones: Degenerative changes are present. No aggressive appearing osseous abnormality IMPRESSION: Similar right upper medial centrilobular nodules likely infectious/inflammatory. Many other ill-defined nodules and micro nodules are again seen throughout the lungs. In the left lateral lung, there is a more focal new 3 mm nodule, for which follow-up is suggested in 6-12 months. Reference image . Dictated by: Curt Aldrich M.D. on 11/16/2024 at 18:06 Approved by: Curt Aldrich M.D. on 11/16/2024 at 18:10
== END ==
LOC: CT 10:43
PROVIDERS: PCP Family Medicine; Referring Provider Family Medicine; Visit Provider Family Medicine
DX: R91.1 Solitary pulmonary nodule (principal); R91.8 Other nonspecific abnormal finding of lung field
CPT/HCPCS: 71250

== ENCOUNTER → 2024-12-15 11:17 | Outpatient (CLI) | payer MEDICARE, SELFPAY ==
[2024-04-10 18:53] VITALS: BMI 29.2
== END ==
PROVIDERS: PCP Family Medicine; Referring Provider Student in an Organized Health Care Education/Training Program; Visit Provider Student in an Organized Health Care Education/Training Program
DX: R06.02 Shortness of breath (principal); Z87.891 Personal history of nicotine dependence; R94.2 Abnormal results of pulmonary function studies
CPT/HCPCS: 94060; 94726; 94729

== ENCOUNTER 2025-01-28 19:10 | Emergency (ER) | payer MEDICARE, SELFPAY ==
[2024-04-10 18:53] VITALS: BMI 29.2
[2025-01-28] VITALS (17 sets, daily range): BP systolic 123–184; BP diastolic 59–81; PULSE 69–73; RESP 13–35; TEMP 36.7; O2SAT 92–97; BMI 29.8
--- NOTE | 2025-01-28 19:25 | EKG_ITS ---
[address] [address] [place] [address] Test Date: 2025-01-28 Pat Name: Nayeli Fenton Department: Room: Gender: Female Experience Design Director: : 1950 Requested By: Order Number: [id number] Reading MD: Tor Collazo Measurements Intervals [place] Rate: 70 P: 32 KS: QRS: 254 QRSD: 178 T: 41 QT: 474 QTc: 511 Interpretive Statements Ventricular-paced rhythm Electronically Signed On 01-29-2025 19:00:30 PDT by Tor Collazo
--- NOTE | 2025-01-28 20:38 | DI.RAD.S_ITS ---
PROCEDURE: XR CHEST 1V INDICATIONS: Chest Pain TECHNIQUE: One view of the chest was acquired. COMPARISON: [facility], CR, XR CHEST 1V, 04/10/2024, 11:10. [facility], CR, XR CHEST 1V, 04/11/2021, 10:13. [facility], CT, CT CHEST WO CON, 11/16/2024, 11:05. FINDINGS AND IMPRESSION: On this single view study, no dense airspace consolidation or pleural effusion is seen. Pulmonary nodules better seen on CT, for which follow-up was previously recommended. Left chest wall pulse generator with electrode leads. Normal heart size. Degenerative osseous changes and partially seen cervical fusion hardware. Dictated by: Curt Aldrich M.D. on 01/28/2025 at 21:17 Approved by: Curt Aldrich M.D. on 01/28/2025 at 21:18
[2025-01-28 20:45] LABS: Prothrombin Time 11.4 SECONDS (9.4-12.5)
[2025-01-28 20:46] LABS: Add Manual Diff / Slide Review NO; Basophils Absolute Auto 100 /uL (0-100); Basophils Percent Auto 0.7 % (0-2); Eosinophils Absolute Auto 100 /uL (0-450); Eosinophils Percent Auto 0.5 % (2-4); Hematocrit 41.7 % (36-46); Hemoglobin 14.2 g/dL (12.0-16.0); Lymphocytes Absolute Auto 2000 /uL (1100-4500); Lymphocytes Percent Auto 14.5 % (25-40); Mean Corpuscular Hemoglobin 31.7 PG (26-34); Mean Corpuscular Volume 93.2 fL (80-100); Monocytes Absolute Auto 600 /uL (0-900); Monocytes Percent Auto 4.5 % (3-14); Neutrophils Absolute Auto 11100 /uL (1500-7000); Neutrophils Percent Auto 79.8 % (50-75); Platelet Count 225 X10^3/uL (150-400); Red Blood Cell Count 4.48 X10^6/uL (4.0-5.2); Red Cell Distribution Width 12.8 % (11.6-14.8); White Blood Cell Count 13.9 X10^3/uL (4.5-11.0)
[2025-01-28] MEDS: ASPIRIN 81 MG CHEW TAB 324 MG PO (20:49)
[2025-01-28 20:59] LABS: Alanine Aminotransferase 24 IU/L (<35); Albumin 4.2 g/dL (3.5-5.0); Albumin Globulin Ratio 1.3 (1.0-2.8); Alkaline Phosphatase 79 U/L (38-126); Aspartate Aminotransferase 38 IU/L (14-36); BUN Creatinine Ratio 14.5 (6-22); Bilirubin Total 0.4 mg/dL (0.2-1.3); Blood Urea Nitrogen 16 mg/dL (7-17); Carbon Dioxide 26 mmol/L (22-32); Chloride 104 mmol/L (98-107); Creatine Kinase 67 U/L (30-135); Estimated Glomerular Filt Rate 53 mL/min (>60); Globulin 3.2 g/dL (1.7-4.1); Glucose 136 mg/dL (70-99); HEMOLYSIS < 15 (0-50); Lipase 37 U/L (23-300); Magnesium 1.7 mg/dL (1.6-2.3); Potassium 4.1 mmol/L (3.4-5.1); Sodium 137 mmol/L (137-145); Total Protein 7.4 g/dL (6.3-8.2)
[2025-01-28 21:04] LABS: PTT Partial Thromboplastin Tim 35 SECONDS (25.1-36.5)
[2025-01-28 21:11] LABS: NT-proBNP (BNP-Adult 18+) 1280 pg/mL (<125)
[2025-01-28 22:01] LABS: Troponin I 0.285 ng/mL (0.01-0.034)
--- NOTE | 2025-01-28 22:04 | ED.CHESTPAIN ---
HPI - Chest Pain General Chief Complaint: Chest Pain Stated Complaint: Pain between shoulder blades, chest Time Seen by Provider: 01/28/25 22:03 Source: patient, RN notes reviewed and old records reviewed Mode of arrival: Ambulatory Limitations: no limitations Limitations: no limitations History of Present Illness HPI narrative: 74-year-old female history of atrial fibrillation, hypertension, dyslipidemia, IBS has a history of pacemaker in SVT with complaint of throat burning and elevated heart rate with chest pain that radiates towards the mid back and into the left arm. Patient notes similar episode a week ago but it was worse today. Patient states it has improved but not completely resolved started at about 5:00 p.m. this evening. Patient states nothing seemed to make it better or worse. She does feel little short of breath but that has not improved. She felt lightheaded but no syncope. No diaphoresis. Had some nausea and dry heaves but have resolved. She notes little bit bloated but no abdominal pain. Denies any new swelling of her arms or legs. No numbness tingling or weakness of her extremities. Notes she was chronic issues with bowel movements secondary to IBS but no new changes. Has had prior cholecystectomy, hysterectomy and AV ablation and pacemaker almost [address] Camarillo at [facility]. No prior history of cardiac stents. She states she takes medication for sleep including zolpidem, mirtazapine, metoprolol PRN for arrhythmias no longer takes statin secondary to side effects. Does not take any aspirin or blood thinners. Force an allergy to doxycycline. Quit using tobacco in 1999. Occasional alcohol but not regularly, occasional edible marijuana but no recreational drugs. Her primary care physician is Dr. Renae. Patient notes she was DNR/DNI but is open to other medical interventions including cardiac catheterization. Has been was at bedside for this and confirms as well. Related Data Home Medications ?Medication ?Instructions ?Recorded ?Confirmed cholecalciferol (vitamin D3) 50 50 mcg PO DAILY 06/18/23 12/04/24 mcg (2,000 unit) capsule spironolactone 25 mg tablet 25 mg PO DAILY PRN water retention 06/18/23 12/04/24 cyclobenzaprine 10 mg tablet 10 mg PO .QD PRN Neck & Back Pain 05/22/24 12/04/24 metoprolol tartrate 50 mg tablet 50 mg PO BID PRN Heart Palpitations 09/04/24 12/04/24 Previous Rx's ?Medication ?Instructions ?Recorded alprazolam 0.25 mg tablet 0.25 mg PO TID PRN anxiety or 09/19/23 sleep #90 tabs hyoscyamine sulfate 0.125 mg 0.125 mg PO BID PRN dyspepsia #30 05/28/24 tablet (Levsin) tabs estradiol 0.075 mg/24 hr 1 patch transdermal 2XW #24 ea 10/14/24 semiweekly transdermal patch (Vivelle-Dot) budesonide-formoterol HFA 80 2 puff inhalation BID #10.2 grams 12/04/24 mcg-4.5 mcg/actuation aerosol inhaler (Symbicort) spacer #1 ea 12/04/24 mirtazapine 15 mg tablet 7.5 mg (1/2 x 15 mg) PO BEDTIME 12/22/24 #30 tabs zolpidem 10 mg tablet 10 mg PO BEDTIME insomnia #30 tabs 12/22/24 Allergies Allergy/AdvReac Type Severity Reaction Status Date / Time doxycycline (DOXYCYCLINE) AdvReac Severe Pressure Verified 01/09/25 10:17 behind eyes/blurred vision/headaches Review of Systems Review of Systems ROS Unobtainable: All systems reviewed & are unremarkable except as noted in HPI and below Patient History Medical History History of nicotine dependence Dyspnea Anxiety Thoracic back pain Sinus drainage Arthritis Headache, migraine Edema 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 Thoracic region somatic dysfunction Chronic left-sided thoracic back pain Cervical spondylosis Pacemaker Bilateral occipital neuralgia Occipital neuralgia of left side Insomnia Palpitations Vaginal pessary in situ Insufficiency, adrenal Rectocele Vaginal atrophy Cystocele Atrial tachycardia Paroxysmal supraventricular tachycardia Insomnia (~10/2019) Obesity (BMI 30.0-34.9) Intermittent palpitations Irregular heart rhythm Mixed incontinence Fall Left foot pain Sciatica, right side Right hip pain Low back pain Steatosis of liver Primary osteoarthritis (03/20/11) Degeneration of intervertebral disc (03/20/11) History of bariatric surgery (03/20/11) Mitral and aortic incompetence (03/20/11) Surgical History Hx laparoscopic cholecystectomy History of surgery (1999) Hx of fusion of cervical spine (2012) Hx of bilateral breast reduction surgery (2013) Hx of abdominoplasty (1989) Hx of sinus surgery H/O: hysterectomy (1991) Hx of fusion of cervical spine (2000) Hx of laparoscopic gastric banding (2010) History of cardiac radiofrequency ablation Status post hysterectomy Family History Father Heart disease Social History household members: spouse Smoking Status: Former smoker Tobacco: How many years used: 30 second hand exposure: Yes (rarely) alcohol intake: current substance use type: marijuana Smoking Status: Former smoker alcohol intake frequency: holidays/special occasions only Exam Narrative Exam Narrative: GENERAL: Alert and oriented x three, female in mild distress. No diaphoresis. HEENT: Head normocephalic, atraumatic, EOMI, pupils reactive, face symmetric, moist mucous membranes NECK: Supple, full range of motion CARDIOVASCULAR: Regular rate and rhythm without murmurs, rubs or gallops. No JVD, no edema bilateral lower extremities or bilateral upper extremities. RESPIRATORY: Breath sounds equal bilaterally, no wheezes rales or rhonchi. No tachypnea or accessory muscle use. ABDOMEN: Soft, nontender. Normoactive bowel sounds all 4 quadrants. No guarding or rebound, rigidity, no mass : No CVA tenderness EXTREMITIES: Normal range of motion, no clubbing or edema. Neurovascularly intact NEUROLOGICAL: Cranial nerves II through XII grossly intact. Moving all extremities SKIN: Warm, dry, no petechiae, no rashes or lesions. Initial Vital Signs Initial Vital Signs: Vital Signs Temperature 98.1 F 01/28/25 19:25 Pulse Rate 70 01/28/25 19:25 Respiratory Rate 19 01/28/25 19:25 Blood Pressure 178/81 H 01/28/25 19:25 Pulse Oximetry 92 01/28/25 19:25 Oxygen Delivery Method Room Air 01/28/25 19:25 Course Orders Ordered: ED Orders 01/28/25 19:23 EKG-12 Lead Stat 01/28/25 20:07 Complete Blood Count AUTO DIFF Stat Comprehensive Metabolic Panel Stat Lipase Stat Magnesium Stat NT-proBNP (BNP-Adult 18+) Stat PTT Partial Thromboplastin Maximo Stat Prothrombin Time INR Stat Troponin & CK Cardiac Panel Stat 01/28/25 20:38 XR chest 1V Stat 01/28/25 22:22 CT angio chest abdomen pelvis Stat 01/28/25 22:28 EKG-12 Lead Stat 01/28/25 22:34 Trop I [Troponin I] Stat Discontinued Medications Acetaminophen (Acetaminophen 325 Mg Tablet) 975 mg PO NOW ONE Stop: 01/28/25 22:48 Last Admin: 01/28/25 22:50 Dose: 975 mg Documented By: RODRÍGUEZ Aspirin (Aspirin 81 Mg Chew Tab) 324 mg PO NOW ONE Stop: 01/28/25 20:39 Last Admin: 01/28/25 20:49 Dose: 324 mg Documented By: FRANK Heparin Sodium (Porcine) (Heparin 5,000 Unit/Ml Vial) 4,500 unit 60 unit/kg (4500 unit) IV NOW ONE Stop: 01/28/25 23:18 Last Admin: 01/28/25 23:27 Dose: 4,500 unit Documented By: PEDRITO Heparin Sodium/Dextrose (Heparin Drip) 25,000 unit in 500 mls @ 18.615 mls/hr IV CONT WILFRIDO; Protocol Last Admin: 01/28/25 23:27 Dose: 12 units/kg/hr, 18.615 mls/hr Documented By: PEDRITO Co-signed By: LEW Nitroglycerin (Nitroglycerin 0.4 Mg Sl Tab) 0.4 mg SL [id number] PRN PRN Reason: Chest Pain Last Admin: 01/28/25 22:52 Dose: 0.4 mg Documented By: Admin: 01/28/25 22:30 Dose: 0.4 mg Documented By: RODRÍGUEZ Vital Signs Vital signs: Vital Signs - 8 hr 01/28/25 20:35 01/28/25 20:36 01/28/25 20:36 Pulse Rate 70 70 Respiratory Rate Blood Pressure 167/69 H Pulse Oximetry 96 94 Oxygen Delivery Method 01/28/25 21:00 01/28/25 21:01 01/28/25 21:01 Pulse Rate 69 69 Respiratory Rate 22 19 Blood Pressure 165/79 H Pulse Oximetry 95 95 Oxygen Delivery Method 01/28/25 21:30 01/28/25 21:30 01/28/25 22:30 Pulse Rate 69 73 Respiratory Rate 18 Blood Pressure 150/71 H 184/77 H Pulse Oximetry 94 Oxygen Delivery Method 01/28/25 22:52 01/28/25 23:00 01/28/25 23:00 Pulse Rate 69 69 Respiratory Rate 13 Blood Pressure 146/70 H 137/74 Pulse Oximetry 94 Oxygen Delivery Method Room Air 01/28/25 23:05 01/28/25 23:05 01/28/25 23:10 Pulse Rate 69 Respiratory Rate 21 Blood Pressure 137/71 135/68 Pulse Oximetry 96 Oxygen Delivery Method Room Air 01/28/25 23:10 01/28/25 23:15 01/28/25 23:15 Pulse Rate 69 69 Respiratory Rate 16 14 Blood Pressure 130/75 Pulse Oximetry 94 94 Oxygen Delivery Method Room Air Room Air 01/28/25 23:20 01/28/25 23:20 01/28/25 23:25 Pulse Rate 69 Respiratory Rate 15 Blood Pressure 123/59 L 135/66 Pulse Oximetry 95 Oxygen Delivery Method Room Air 01/28/25 23:25 01/28/25 23:30 01/28/25 23:36 Pulse Rate 69 69 69 Respiratory Rate 21 35 H 13 Blood Pressure Pulse Oximetry 95 95 97 Oxygen Delivery Method Room Air Room Air Room Air 01/28/25 23:36 01/28/25 23:40 01/28/25 23:40 Pulse Rate 69 Respiratory Rate 13 Blood Pressure 140/63 134/62 Pulse Oximetry 96 Oxygen Delivery Method 01/29/25 00:00 01/29/25 00:00 01/29/25 00:30 Pulse Rate 69 Respiratory Rate 12 Blood Pressure 127/58 L 122/58 L Pulse Oximetry 94 Oxygen Delivery Method 01/29/25 00:30 01/29/25 01:00 01/29/25 01:00 Pulse Rate 69 69 Respiratory Rate 14 19 Blood Pressure 118/58 L Pulse Oximetry 94 96 Oxygen Delivery Method 01/29/25 01:30 01/29/25 01:30 01/29/25 02:00 Pulse Rate 69 Respiratory Rate 22 Blood Pressure 118/60 121/58 L Pulse Oximetry 95 Oxygen Delivery Method 01/29/25 02:00 01/29/25 02:30 01/29/25 02:30 Pulse Rate 69 69 Respiratory Rate 14 14 Blood Pressure 111/59 L Pulse Oximetry 95 94 Oxygen Delivery Method MDM - Chest Pain Lab Data 01/28/25 20:07 01/28/25 20:07 Labs: Lab Results 01/28/25 01/28/25 Range/Units 20:07 22:34 WBC 13.9 H (4.5-11.0) X10^3/uL RBC 4.48 (4.0-5.2) X10^6/uL Hgb 14.2 (12.0-16.0) g/dL Hct 41.7 (36-46) % MCV 93.2 (80-100) fL MCH 31.7 (26-34) PG MCHC 34.0 (30-36) % RDW 12.8 (11.6-14.8) % Plt Count 225 (150-400) X10^3/uL Neut % (Auto) 79.8 H (50-75) % Lymph % (Auto) 14.5 L (25-40) % Dane % (Auto) 4.5 (3-14) % Eos % (Auto) 0.5 L (2-4) % Baso % (Auto) 0.7 (0-2) % Neut # (Auto) 70027 H (0017-3411) /uL Lymph # (Auto) 2000 (8404-8741) /uL Dane # (Auto) 600 (0-900) /uL Eos # (Auto) 100 (0-450) /uL Baso # (Auto) 100 (0-100) /uL PT 11.4 (9.4-12.5) SECONDS INR 1.0 (0.9-1.3) APTT 35 (25.1-36.5) SECONDS Sodium 137 (137-145) mmol/L Potassium 4.1 (3.4-5.1) mmol/L Chloride 104 (98-107) mmol/L Carbon Dioxide 26 (22-32) mmol/L BUN 16 (7-17) mg/dL Creatinine 1.10 H (0.52-1.04) mg/dL Estimated GFR 53 L (>60) mL/min BUN/Creatinine Ratio 14.5 (6-22) Glucose 136 H (70-99) mg/dL Calcium 9.0 (8.4-10.2) mg/dL Magnesium 1.7 (1.6-2.3) mg/dL Total Bilirubin 0.4 (0.2-1.3) mg/dL AST 38 H (14-36) IU/L ALT 24 (<35) IU/L Alkaline Phosphatase 79 (38-126) U/L Total Creatine Kinase 67 (30-135) U/L Troponin I 0.285 H* 2.200 H* (0.01-0.034) ng/mL NT-Pro-B Natriuret Pep 1280 H (<125) pg/mL Total Protein 7.4 (6.3-8.2) g/dL Albumin 4.2 (3.5-5.0) g/dL Globulin 3.2 (1.7-4.1) g/dL Albumin/Globulin Ratio 1.3 (1.0-2.8) Lipase 37 (23-300) U/L ECG Data Attestation: I personally reviewed and interpreted this ECG as follows: Prior ECG tracings: available for review Interpretation: Ventricularly paced rhythm rate of 70, QRS of 178 QTC of 511. Patient was prior from 04/10/2024 which showed paced rhythm as well with a rate of 70. AV dual paced rhythm rate of 70 IA 196 QRS of 176 QTC of 529. MDM Narrative Medical decision making narrative: EKG shows ventricularly paced rhythm. Chest x-ray left chest wall pulse generator with the electrode leads. Normal heart size. Degenerative osseous changes in partially seen cervical fusion hardware. No dense airspace consolidation or pleural effusion seen. Pulmonary nodules better seen on CT for which follow up was previously recommended. Labs show hemoglobin of 14 platelets of 225 white count of 13.9. PTT and INR are normal range, normal electrolytes creatinine is 1.10 was 0.94 in June of 2024 glucose is 136 AST is 38 bilirubin is 0.4 ALT is 24 with a alk-phos is 79 lipase is 37 troponin is positive at 0.285 with a BNP of 1280. Repeat troponin has not increased to 2.2 CTA chest abdomen pelvis dissection protocol shows overall moderate degree atherosclerotic disease involving irritate it is branches more focally left subclavian proximal SMA he was a noncalcified plaque coronary calcifications present. No acute dissection or intramural hematoma possible thickening 8:00 a.m. along leaflets of the valve. Not well elevated but due to motion artifact can consider echo. Pulmonary septal thickening bronchial wall thickening lower lung centrilobular nodules again seen the upper lungs. Maybe infectious/inflammatory. Consider future imaging surveillance to assess resolution. Moderate fecal loading in the colon. Mild wall thickening and distal sigmoid polyp visible well colitis or artifact underdistention. Consider colonoscopy correlation if not recently obtained. Heparin is initiated after dissection not found on CTA. Reviewed these finding with Dr. Posada, cardiology at [facility] at 2321, reviewed CTA findings as well as workup recommends tree as NSTEMI and transferred to [facility] if available or other facility if no beds available. Patient received aspirin, heparin, patient had nitro but notes palpitations feel worse so was stopped. Rechecked at 23 28 patient states chest pain has resolved. She states currently has some palpitation sensation but no pain or chest pressure. Reviewed all of her findings she was agreeable to transfer. We will attempt [facility] versus her cardiology team is there if no physical beds available we will try other facilities. [facility] did not have any beds available, calls out to multiple facilities. Spoke with cardiology at [facility] @ 0032. Spoke with Dr. Hannah, hospitalist at [facility] accepts for transfer at 0051. Reviewed findings and workup thus far patient is currently chest pain-free, CTA results their entirety, labs and treatment thus far. Rechecked at 0133 patient continues to be chest pain-free is agreeable to transfer. Critical Care Time Critical Care Time Critical Care Time: Yes Total Critical Care Time: 40 Attestation: The high probability of a clinically significant, sudden or life threatening deterioration of the cardiac system(s) required my full and direct attention, intervention and personal management. The aggregate critical care time was [--] minutes. This time is in addition to time spent performing reported procedures but includes the following: [x] Data Review and interpretation [x] Patient assessment and monitoring of vital signs [x] Documentation [x] Medication orders and management Discharge Plan Departure Patient Disposition: [facility] Clinical Impression: Non-ST elevation [place] (NSTEMI) Prescriptions: No Action mirtazapine 15 mg tablet 7.5 mg PO BEDTIME Qty: 30 3RF zolpidem 10 mg tablet 10 mg PO BEDTIME Qty: 30 1RF alprazolam 0.25 mg tablet 0.25 mg PO TID PRN (Reason: anxiety or sleep) Qty: 90 3RF hyoscyamine sulfate [Levsin] 0.125 mg tablet 0.125 mg PO BID PRN (Reason: dyspepsia) Qty: 30 3RF estradiol [Vivelle-Dot] 0.075 mg/24 hr patch semiweekly 1 patch transdermal 2XW Qty: 24 2RF Rx Instructions: DISP BRAND VIVELLE-DOT spironolactone 25 mg tablet 25 mg PO DAILY PRN (Reason: water retention) metoprolol tartrate 50 mg tablet 50 mg PO BID PRN (Reason: Heart Palpitations) Patient Comments: As needed cholecalciferol (vitamin D3) 50 mcg (2,000 unit) capsule 50 mcg PO DAILY cyclobenzaprine 10 mg tablet 10 mg PO .QD PRN (Reason: Neck & Back Pain) budesonide-formoterol [Symbicort] 80-4.5 mcg/actuation HFA aerosol inhaler 2 puff inhalation BID Qty: 10.2 3RF (DME) spacer See Rx Instructions .ROUTE .MEDSUPPLY Qty: 1 0RF Rx Instructions: As directed, use with inhaler. Referrals: Jose Renae MD [Primary Care Provider, Family Practice]
--- NOTE | 2025-01-28 22:22 | DI.CT.S_ITS ---
PROCEDURE: CT ANGIO CHEST ABDOMEN PELVIS INDICATIONS: chest/back pain TECHNIQUE: Precontrast 5 mm thick sections acquired from the lung apices to the iliac crests. After the administration of intravenous contrast, 2.5 mm thick sections again acquired from the lung apices to the iliac crests. Maximum intensity projection (MIP) oblique sagittal and coronal reformats were then acquired. For radiation dose reduction, the following was used: automated exposure control. COMPARISON: [facility], CT, CT ANGIO CHEST ABDOMEN PELVIS, 04/10/2024, 12:05. [facility], CT, CT CHEST WO CON, 11/16/2024, 11:05. FINDINGS: Image quality: Diagnostic Lungs and pleura: Septal thickening and bronchial wall thickening seen in the lower lungs. This is new from prior. No dense airspace disease. No pleural effusions. Decreased prominence of the previously new left lateral lung nodule on 11/16/2024. Centrilobular nodules also again seen in the upper lobes Mediastinum, heart, and esophagus: On precontrast images, no intramural hematoma is seen. There are coronary and atherosclerotic calcifications. On postcontrast images, there is no acute dissection. Irregular thickened appearance of the aortic valve leaflets is present. No central pulmonary embolism. Moderate narrowing is seen in the left subclavian artery. Unremarkable esophagus. No pathologic lymph nodes by size criteria Chest wall and thyroid: Unremarkable Liver: Unremarkable Gallbladder and biliary system: Absent, nondilated Pancreas: No ductal dilation. Mild parenchymal atrophy Spleen: Nonenlarged Adrenals: No discrete nodules Kidneys: No solid renal mass or hydronephrosis. Vessels and lymph nodes: Moderate atherosclerotic disease with calcified and noncalcified plaque of the aorta and its branches. The major mesenteric arteries appear patent, though with moderate narrowing seen in the proximal SMA. The venous structures are not well assessed on this study. No pathologic lymphadenopathy by size criteria Bowel and peritoneum: No acute small bowel obstruction. Moderate fecal loading. Mild wall thickening seen in the distal colon. No drainable abscess or ascites Body wall: Unremarkable Pelvis: Under distended urinary bladder. Uterus is not seen Bones: There are degenerative osseous changes. No aggressive appearing osseous abnormality. IMPRESSION: Overall moderate degree of atherosclerotic disease involving the aorta and its branches, more focally in the left subclavian artery and proximal SMA. There are areas of noncalcified plaque. Coronary calcifications are present. No acute dissection or intramural hematoma. Possible thickening is seen at the aortic root along the leaflets of the valve. This area is not well evaluated due to motion artifact. Consider echocardiogram correlation. Pulmonary septal thickening and bronchial wall thickening in the lower lungs. Centrilobular nodules also again seen in the upper lobes. These may be infectious/inflammatory. Consider future imaging surveillance to assess for resolution. Moderate fecal loading in the colon. Mild wall thickening of the distal sigmoid, possibly mild colitis or artifact of under distention. Consider colonoscopy correlation if not recently obtained Other findings above. Dictated by: Curt Aldrich M.D. on 01/28/2025 at 23:01 Approved by: Curt Aldrich M.D. on 01/28/2025 at 23:10
[2025-01-28] MEDS: NITROGLYCERIN 0.4 MG SL TAB SL ×2 (22:30→22:52)
--- NOTE | 2025-01-28 22:37 | EKG_ITS ---
[address] [address] Test Date: 2025-01-28 Pat Name: Nayeli Fenton Department: [facility] Room: Gender: Female [employer]: : 1950 Requested By: Order Number: [id number] Reading MD: Tor Collazo Measurements Intervals [place] Rate: 70 P: 13 OR: 196 QRS: 256 QRSD: 176 T: 37 QT: 490 QTc: 529 Interpretive Statements AV dual-paced rhythm Electronically Signed On 01-29-2025 19:00:45 PDT by Tor Collazo
[2025-01-28] MEDS: ACETAMINOPHEN 325 MG TABLET 975 MG PO (22:50)
[2025-01-28] MEDS: HEPARIN 5,000 UNIT/ML VIAL 4500 UNIT IV (23:27)
[2025-01-28] MEDS: HEPARIN DRIP 25,000 UNIT/500 ML IV.SOLN 18.615 UNIT IV (23:27)
[2025-01-29] VITALS: BP 127/58; PULSE 69; RESP 12; O2SAT 94
[2025-01-29 00:30] VITALS: BP 122/58; PULSE 69; RESP 14; O2SAT 94
[2025-01-29 01:00] VITALS: BP 118/58; PULSE 69; RESP 19; O2SAT 96
[2025-01-29 01:30] VITALS: BP 118/60; PULSE 69; RESP 22; O2SAT 95
[2025-01-29 02:00] VITALS: BP 121/58; PULSE 69; RESP 14; O2SAT 95
[2025-01-29 02:30] VITALS: BP 111/59; PULSE 69; RESP 14; O2SAT 94
== END 2025-01-29 03:01 | disposition short-term general hospital (02) ==
PROVIDERS: Emergency Provider Emergency Medicine; PCP Family Medicine
DX: I21.4 Non-ST elevation (NSTEMI) myocardial infarction (principal)
CPT/HCPCS: 36415; 71045; 71275; 74174; 80053; 82550; 83690; 83735; 83880; 84484; 85025; 85610; 85730; 93005; 96365; 96366; 96375; 99284; 99291; J1644; Q9967

== ENCOUNTER → 2025-06-29 11:18 | Outpatient (CLI) | payer MEDICARE, SELFPAY ==
[2024-04-10 18:53] VITALS: BMI 29.2
[2025-06-29 12:47] LABS: Cholesterol 232 mg/dL (140-199); HDL Cholesterol 73 mg/dL (40-60); Triglycerides 134 mg/dL (35-150)
[2025-06-29 13:18] LABS: TSH w/ Reflex to FT4 2.35 uIU/mL (0.47-4.68)
== END ==
PROVIDERS: PCP Family Medicine; Referring Provider Family Medicine; Visit Provider Family Medicine
DX: E78.2 Mixed hyperlipidemia (principal)
CPT/HCPCS: 36415; 80061; 84443

== ENCOUNTER → 2025-07-13 11:17 | Outpatient (CLI) | payer MEDICARE, SELFPAY ==
[2024-04-10 18:53] VITALS: BMI 29.2
[2025-07-13 14:23] LABS: Alanine Aminotransferase 14 IU/L (<35); Albumin 4.3 g/dL (3.5-5.0); Albumin Globulin Ratio 1.5 (1.0-2.8); Alkaline Phosphatase 78 U/L (38-126); Globulin 2.9 g/dL (1.7-4.1); HEMOLYSIS < 15 (0-50); Total Protein 7.2 g/dL (6.3-8.2)
== END ==
PROVIDERS: PCP Family Medicine
DX: Z79.899 Other long term (current) drug therapy (principal)
CPT/HCPCS: 36415; 80076

== ENCOUNTER → 2025-07-16 11:17 | Outpatient (CLI) | payer MEDICARE, SELFPAY ==
[2024-04-10 18:53] VITALS: BMI 29.2
[2025-07-16 13:26] LABS: TSH w/ Reflex to FT4 0.03 uIU/mL (0.47-4.68)
[2025-07-16 13:53] LABS: Free T4, Direct Thyroxine 1.54 ng/dL (0.78-2.19)
== END ==
PROVIDERS: PCP Family Medicine; Referring Provider Internal Medicine Cardiovascular Disease; Visit Provider Internal Medicine Cardiovascular Disease
DX: Z79.899 Other long term (current) drug therapy (principal)
CPT/HCPCS: 36415; 84439; 84443

== ENCOUNTER 2025-08-06 10:15 | Outpatient (RCR) | payer MEDICARE, SELFPAY ==
[2024-04-10 18:53] VITALS: BMI 29.2
== END 2025-08-06 12:15 ==
LOC: CAR 10:15
PROVIDERS: PCP Family Medicine; Referring Provider Physician Assistant; Visit Provider Physician Assistant
DX: I21.4 Non-ST elevation (NSTEMI) myocardial infarction (principal); I44.2 Atrioventricular block, complete; I97.190 Other postprocedural cardiac functional disturbances following cardiac surgery; Z95.0 Presence of cardiac pacemaker
CPT/HCPCS: 93798

== ENCOUNTER → 2025-08-26 13:49 | Outpatient (CLI) | payer MEDICARE, SELFPAY ==
[2024-04-10 18:53] VITALS: BMI 29.2
--- NOTE | 2025-08-26 13:50 | DI.ECHO.S_ITS ---
[place] [facility]+ [facility] : : [address] : : [place] : : [id number] : : Phone: [phone] Echocardiogram Report + + :Name: YULISA DENNY Study Date: 08/26/2025 Height: 63.5 in: :[facility] ReadingLocation: Weight: 170 lb : : Gender: Female BSA: 1.8 m2 : :: 1950 Age: 75 yrs BP: 155/76 mmHg: :Reason For Study: CAD : :Ordering Physician: CARIDAD, : :RADHA James Performed By: Naresh Roach : :Referring: RADHA MCLEAN : + + Interpretation Summary The ejection fraction is estimated to be 55-60%. Diastolic function is indeterminate. The right ventricle is normal in size and function. There is mild mitral regurgitation. There is mild aortic regurgitation. There is mild tricuspid regurgitation. Pulmonary artery pressures cannot be estimated because of the lack of a measurable TR jet velocity but the IVC suggests a CVP of around 3 mmHg. Compared to the prior study 04/11/2024, no significant change. Procedure: A two-dimensional transthoracic echocardiogram with color flow and Doppler was performed. The study quality was technically adequate. Comparison is made with the echocardiogram of 04/11/2024. The heart rate ranged between 60-65 bpm during the study. The patient has a paced rhythm. Left Ventricle: The left ventricle is normal in size and wall thickness. Overall left ventricular systolic function is preserved. The ejection fraction is estimated to be 55-60%. Apical wall motion abnormality may reflect pacemaker activation. Diastolic function is indeterminate. Right Ventricle: There is a pacemaker lead in the right ventricle. The right ventricle is normal in size and function. Atria: The left atrial size is normal. Right atrial size is normal. There is a catheter/pacemaker lead seen in the right atrium. There is no Doppler evidence for an interatrial shunt. Mitral Valve: The mitral valve leaflets appear to open well. There is no mitral valve stenosis. There is mild mitral regurgitation. Aortic Valve: The aortic valve is trileaflet. The aortic valve opens well. There is no hemodynamically significant valvular aortic stenosis. There is mild aortic regurgitation. Tricuspid Valve: The tricuspid valve is not well visualized, but is grossly normal. There is mild tricuspid regurgitation. Pulmonary artery pressures cannot be estimated because of the lack of a measurable TR jet velocity but the IVC suggests a CVP of around 3 mmHg. Pulmonic Valve: The pulmonic valve is not well seen, but is grossly normal. There is trace pulmonic regurgitation. Great Vessels: The aortic root is normal size. Ascending aorta and aortic arch are not well visualized. The pulmonary is not well visualized. The IVC is of normal diameter and collapses greater than 50% with a sniff. This suggests a low right atrial pressure of 3 mm Hg. Pericardium/ Pleura There is no pericardial effusion. MMode/2D Measurements & Calculations LVIDd: 4.1 cm LVOT diam: 2.0 cm LVIDs: 2.6 cm Ao root diam: 2.8 cm FS: 37.5 % IVSd: 0.89 cm LVPWd: 0.87 cm LV schilling. diameter/BSA (cm/m^2): 2.3 LV sys. diameter/BSA (cm/m^2): 1.4 LA A2 area: 17.7 cm2 RA long axis: 5.2 cm LA A4 area: 19.5 cm2 RA area: 13.6 cm2 LA length (vol): 5.8 cm RA vol: 30.7 ml LA vol: 50.9 ml RA : 16.9 ml/m2 LA vol index: 28.0 ml/m2 IVC diam: 1.8 cm RVD1 (basal): 2.5 cm RVD2 (mid): 2.1 cm TAPSE: 2.0 cm Doppler Measurements & Calculations Ao V2 max: 174.7 cm/sec LVOT Max Rui: 111.5 cm/sec Ao V2 mean: 124.2 cm/sec LV V1 max P.0 mmHg Ao max P.2 mmHg LV V1 VTI: 26.3 cm Ao mean P.8 mmHg LURDES(I,D): 2.2 cm2 Ao V2 VTI: 37.2 cm LURDES(V,D): 2.0 cm2 sev ratio: 0.71 LURDES indexed to BSA (cm^2/m^2): 1.2 AI P1/2t: 508.1 msec AI dec slope: 222.5 cm/sec2 MV E max rui: 97.2 cm/sec TR max rui: 270.2 cm/sec MV A max rui: 99.7 cm/sec TR max P.2 mmHg MV E/A: 0.97 PA V2 max: 134.2 cm/sec Med Peak E' Rui: 8.0 cm/sec PA V2 mean: 72.6 cm/sec E/E' med: 12.1 PA mean P.8 mmHg Lat Peak E' Rui: 8.5 cm/sec PA pr(Accel): 27.6 mmHg E/E' lat: 11.5 E/e' average: 11.8 MV dec time: 0.14 sec SV(LVOT): 82.8 ml Reading Physician:02:43 PM
[2025-08-26 16:55] LABS: TSH w/ Reflex to FT4 2.10 uIU/mL (0.47-4.68)
== END ==
PROVIDERS: PCP Family Medicine; Referring Provider Internal Medicine Cardiovascular Disease; Visit Provider Internal Medicine Cardiovascular Disease
DX: I08.3 Combined rheumatic disorders of mitral, aortic and tricuspid valves (principal); I25.10 Atherosclerotic heart disease of native coronary artery without angina pectoris; R79.89 Other specified abnormal findings of blood chemistry; Z95.0 Presence of cardiac pacemaker
CPT/HCPCS: 36415; 84443; 93306